=== PATIENT | male | born 1945 | race Caucasian/White ===

== ENCOUNTER 2017-08-29 18:48 | Emergency (ER) | payer MEDICARE, SELFPAY ==
[2017-08-29 18:50] VITALS: BP 188/82; PULSE 69; RESP 14; TEMP 36.6; O2SAT 99; BMI 30.8
--- NOTE | 2017-08-29 18:56 | EKG12_ITS ---
Test Reason : CP Blood Pressure : / mmHG Vent. Rate : 066 BPM Atrial Rate : 066 BPM P-R Int : 178 ms QRS Dur : 142 ms QT Int : 434 ms P-R-T Axes : 041 143 046 degrees QTc Int : 454 ms Normal sinus rhythm Right bundle branch block Abnormal ECG Confirmed by JAELYN ATKINS ([id number]), fashion editor GRAZYAN COELHO ([id number] on 09/03/2017 1:51:26 PM Referred By: NATASHA Confirmed By:JAELYN ATKINS
--- NOTE | 2017-08-29 18:56 | RAD_ITS ---
STUDY: X-RAY CHEST REASON FOR EXAM: Male, 71 years old. Fluttering TECHNIQUE: Single AP portable view of the chest. COMPARISON: 05/02/2017. FINDINGS: The lungs are clear and expanded. There is no demonstrated pleural abnormality. Normal size heart. Patient status post sternotomy. Normal mediastinum and power. Normal visualized pulmonary arteries. Normal visualized aortic arch and descending thoracic aorta. Normal visualized thoracic spine. Normal visualized ribs, clavicles, and shoulders. There is no demonstrated abnormality of the visualized soft tissue structures of the upper abdomen. RAD/Chest 1 View (Portable) IMPRESSION: No acute cardiopulmonary disease. Electronically Signed: Sukhi Samayoa DO at 19:23 EDT , Service support ,
[2017-08-29 18:58] VITALS: O2SAT 98
[2017-08-29 19:11] LABS: Absolute Lymphocyte Count 1.62 X10^3/ul (0.83-4.51); Absolute Neutrophil Count 2.9 X10^3/uL (2.0-7.7); Basophil# 0.02 X10^3/uL; Basophil% 0.4 % (0-1); Eosinophil# 0.15 X10^3/uL; Eosinophils% 2.9 % (0-5); Hematocrit 41.8 % (40-54); Hemoglobin 13.9 g/dl (13.0-16.5); Lymphocyte # 1.62 X10^3/ul (4.0); Lymphocyte % 31.8 % (19-41); Mean Corp Hgb Conc 33.3 g/gl (32-36); Mean Corpuscular Volume 90.3 fL (80-94); Mean Platelet Vol. 9.5 fl (6.2-12.0); Monocyte# 0.37 X10^3/uL; Monocyte% 7.3 % (0-10); Neutrophil # 2.92 X10^3/uL (2.7-7.7); Neutrophil % 57.4 % (47-70); POSITIVE COUNT NO; POSITIVE DIFFERENTIAL NO; POSITIVE MORPHOLOGY NO; Platelet Count 170 K/mm3 (150-450); RBC Distribution Width CV 13.4 % (11.6-14.6); RBC Distribution Width SD 43.6 fl (35.1-43.9); Red Blood Count 4.63 M/mm3 (4.6-6.2); White Blood Count 5.1 K/mm3 (4.4-11.0)
[2017-08-29 19:25] LABS: Anion Gap 6 (5-15); BUN 14 mg/dL (7-18); BUN/Creat Ratio 12.2 RATIO (10-20); Chloride 103 mmol/L (98-107); Creatinine, Serum 1.15 mg/dL (0.70-1.30); EST Glomerular Filtration Rate 66 mL/min (>60); Est Glom Filt Rate - Afr Amer 80 mL/min (>60); Estimated Creatinine Clearance 62.79 ml/min; Glucose 138 mg/dL (74-106); Sodium Level 139 mmol/L (136-145)
--- NOTE | 2017-08-29 20:43 | ED.VISSUMM ---
- ER Visit Summary Date of Service: 08/29/17 Chief Complaint: Chest vibration History of Present Illness: The patient is a 71 M presenting for evaluation secondary to an abnormal chest sensation. Patient states that since 8:00 this morning he has felt as if his chest was vibrating. He describes it as somewhat of a fluttering feeling. Patient states that he has had some mild diarrhea recently and some generalized malaise. Denies any chest pain shortness of breath nausea or vomiting or fevers associated with this. Patient does have an underlying history diabetes hypertension high cholesterol and a pig valve. He states that he does not have any history of coronary disease. Review of systems otherwise negative. Physical Examination: Vital signs within normal limits. Well-nourished elderly male no acute distress. Moist mucous membranes. No JVD. Heart regular rate and rhythm 2 out of 6 systolic murmur. Lungs clear. Abdomen soft nontender. Trace peripheral edema 2+ peripheral pulses bilaterally symmetric mental physical unremarkable. Test Results: EKG shows a right bundle branch block consistent with prior EKG with isoelectric ST segments and actually improved T waves in a rate of 66. CBC chemistry troponin unremarkable, TSH mildly elevated at 5.5, chest x-ray shows chronic changes per radiology. Emergency Department Course and Treatment: Patient presented with an abnormal feeling in his chest. Workup was found to be negative as noted above. Patient's ROMELIA risk score is actually only 2 out of 7, and his symptoms seem extremely atypical for something cardiac. He had no signs of arrhythmia on telemetry monitoring. This point I do not believe patient requires admission. Patient was reassured by this, will follow up with his primary care physician Disposition: Discharge Impression: 1. Palpitations This note was generated with [employer] dictation software. It may contain incorrect words, spelling, and punctuation that were not noted in review of the chart prior to signing ED Disposition - Plan for ED Patient: Disposition: Home or Assisted Living Chief Complaint: Chest Pain Diagnosis: Palpitations Instructions: ED Palpitations Referrals: [facility] Doctor,Out of [Primary Care Provider] -
[2017-08-29 20:50] VITALS: BP 145/79; PULSE 61; RESP 17; O2SAT 95
--- NOTE | 2017-08-29 20:50 | ED.RN ---
IV DC'ED, CATHETER INTACT, SMALL GAUZE DRESSING PLACED. DISCHARGE INSTRUCTIONS GIVEN TO AND REVIEWED WITH PATIENT, PATIENT DENIES QUESTIONS OR CONCERNS AND VOICES UNDERSTANDING OF DISCHARGE INSTRUCTIONS. PT AMBULATES OUT OF ROOM WITHOUT DIFFICULTY.
== END 2017-08-29 20:51 | disposition home or self-care (01) ==
PROVIDERS: Emergency Provider Emergency Medicine
DX: R00.2 Palpitations (principal); E11.9 Type 2 diabetes mellitus without complications; I10 Essential (primary) hypertension; E78.00 Pure hypercholesterolemia, unspecified; Z95.4 Presence of other heart-valve replacement; Z79.84 Long term (current) use of oral hypoglycemic drugs; Z79.899 Other long term (current) drug therapy
CPT/HCPCS: 71045; 80048; 84443; 84484; 85025; 93005; 99284; A4216

== ENCOUNTER 2018-06-08 08:48 | Emergency (ER) | payer MEDICARE, SELFPAY ==
[2018-06-08 08:49] VITALS: BP 204/101; PULSE 53; RESP 16; TEMP 36.4; O2SAT 98; BMI 30.5
--- NOTE | 2018-06-08 09:15 | RAD_ITS ---
STUDY: X-RAY CHEST REASON FOR EXAM: Male, 72 years old. Chest pain for one week TECHNIQUE: PA and lateral views of the chest. COMPARISON: 08/29/2017 FINDINGS: The lungs are clear and expanded. There is no demonstrated pleural abnormality. Normal size heart. Sternal wires and prosthetic aortic valve demonstrated, similar. EKG leads project over the chest. Normal mediastinum and power. Normal visualized pulmonary arteries. Normal visualized aortic arch and descending thoracic aorta. Normal visualized thoracic spine. Normal visualized ribs, clavicles, and shoulders. There is no demonstrated abnormality of the visualized soft tissue structures of the upper abdomen. RAD/Chest PA and Lateral IMPRESSION: 1. No acute cardiopulmonary process. 2. Aortic valve replacement. Electronically Signed: Gabriele Huang MD at 9:44 EST , Service support ,
[2018-06-08 09:29] LABS: Absolute Lymphocyte Count 1.18 X10^3/ul (0.83-4.51); Absolute Neutrophil Count 2.9 X10^3/uL (2.0-7.7); Basophil# 0.02 X10^3/uL; Basophil% 0.4 % (0-1); Eosinophil# 0.09 X10^3/uL; Eosinophils% 1.9 % (0-5); Hematocrit 41.9 % (40-54); Hemoglobin 14.2 g/dl (13.0-16.5); Lymphocyte # 1.18 X10^3/ul (4.0); Lymphocyte % 25.3 % (19-41); Mean Corp Hgb Conc 33.9 g/gl (32-36); Mean Corpuscular Hgb 30.3 pg (27.0-32.0); Mean Corpuscular Volume 89.3 fL (80-94); Mean Platelet Vol. 9.3 fl (6.2-12.0); Monocyte# 0.44 X10^3/uL; Monocyte% 9.4 % (0-10); Neutrophil # 2.92 X10^3/uL (2.7-7.7); Neutrophil % 62.8 % (47-70); POSITIVE COUNT NO; POSITIVE DIFFERENTIAL NO; POSITIVE MORPHOLOGY NO; Platelet Count 142 K/mm3 (150-450); RBC Distribution Width CV 12.8 % (11.6-14.6); RBC Distribution Width SD 41.5 fl (35.1-43.9); Red Blood Count 4.69 M/mm3 (4.6-6.2); White Blood Count 4.7 K/mm3 (4.4-11.0)
[2018-06-08 09:37] LABS: D-Dimer Quantitative (DVT/PE) < 0.27 FEU/ug/m (0.27-0.49)
[2018-06-08] MEDS: 0.9% Normal Saline 1,000 ML 150 ML IV (09:42)
[2018-06-08 09:43] LABS: Anion Gap 9 (5-15); BUN 13 mg/dL (7-18); BUN/Creat Ratio 11.5 RATIO (10-20); Chloride 102 mmol/L (98-107); Creatinine, Serum 1.13 mg/dL (0.70-1.30); EST Glomerular Filtration Rate 67 mL/min (>60); Est Glom Filt Rate - Afr Amer 81 mL/min (>60); Estimated Creatinine Clearance 62.95 ml/min; Glucose 173 mg/dL (74-106); Potassium 4.7 mmol/L (3.5-5.1); Sodium Level 140 mmol/L (136-145)
--- NOTE | 2018-06-08 09:57 | ED.DCSUM_ITS ---
- ER Visit Summary Date of Service: 06/08/18 Chief Complaint: [Chest pain] History of Present Illness: The patient is a 72 M [presents to the emergency department complaint of chest pain that started yesterday evening suddenly. Patient states that he was taking his shoes off when he noticed the discomfort in his left chest that was sharp. Patient states the pain lasted a few minutes and then resolved. Patient states with certain position movements the pain comes back. He denies any real shortness of breath or diaphoresis. Patient had some mild nausea but no vomiting. He denies any radiation of the pain. Patient states that it reminds him of pain he had with movement after his open heart surgery for an aortic valve replacement. Patient denies any cough or hemoptysis. He denies any fever.] Patient not currently having any pain. Physical Examination: [HEENT-PERRLA, EOMI. Cranial nerves II through XII grossly intact. TMs clear. Mucous membranes moist. No adenopathy. Cardiovascular-regular rate and rhythm without murmur or ectopy Lungs-clear to auscultation, chest wall stable without crepitus or subcu emphysema. No tenderness on palpation of the chest wall. Abdomen-normoactive bowel sounds, soft, nontender, no rebound or rigidity, no peritoneal signs. Extremities-intact ?4, normal range of motion, normal pulses, atraumatic] Test Results: [EKG obtained on arrival shows sinus bradycardia with a ventricular rate of 51 bpm with occasional PACs. CBC with differential obtained showed a white count of 4.7, hemoglobin 14, hematocrit 42, platelets 142. Chemistries unremarkable. Troponin less than 0.015. D-dimer was less than 0. 27. Chest x-ray obtained showed nothing acute.] Emergency Department Course and Treatment: [] Treatment Plan: [Patient advised to follow-up with primary care physician within next 5-7 days. Patient to return if persistent or worsening pain, fever, increasing shortness of breath, or condition should worsen anyway.] Disposition: [Discharged home in stable condition.] Impression: [Chest wall strain] This note was generated with [employer] dictation software. It may contain incorrect words, spelling, and punctuation that were not noted in review of the chart prior to signing ED Disposition - Plan for ED Patient: Chief Complaint: Chest Other Referrals: Daljit Cook MD [Primary Care Provider] -
--- NOTE | 2018-06-08 09:58 | ED.DEP ---
ED Disposition - Plan for ED Patient: Chief Complaint: Chest Other Instructions: ED Chest Pain Atypical Unkn Cause, ED Strain Chest Wall Referrals: Daljit Cook MD [Primary Care Provider] - 5-7 Days
[2018-06-08 10:09] VITALS: BP 142/78; PULSE 66; RESP 15; O2SAT 97
== END 2018-06-08 10:09 | disposition home or self-care (01) ==
PROVIDERS: Emergency Provider Emergency Medicine; Family Provider Family Medicine; PCP Family Medicine
DX: S29.011A Strain of muscle and tendon of front wall of thorax, initial encounter (principal); R07.9 Chest pain, unspecified; I10 Essential (primary) hypertension; Z95.2 Presence of prosthetic heart valve; X58.XXXA Exposure to other specified factors, initial encounter; Y93.89 Activity, other specified; Y92.89 Other specified places as the place of occurrence of the external cause; Y99.8 Other external cause status
CPT/HCPCS: 71046; 80048; 84484; 85025; 85379; 93005; 99284; J7030; A4216

== ENCOUNTER 2022-01-28 12:04 | Emergency (ER) | payer MEDICARE, SELFPAY ==
[2022-01-28] VITALS (7 sets, daily range): BP systolic 119–163; BP diastolic 57–70; PULSE 78–93; RESP 18–24; TEMP 37.5–39.2; O2SAT 92–95; BMI 30.4
--- NOTE | 2022-01-28 12:14 | EKG12_ITS ---
Test Reason : Blood Pressure : / mmHG Vent. Rate : 094 BPM Atrial Rate : 094 BPM P-R Int : 190 ms QRS Dur : 142 ms QT Int : 390 ms P-R-T Axes : 037 221 041 degrees QTc Int : 487 ms Normal sinus rhythm Right bundle branch block Abnormal ECG Confirmed by PRATEEK HASTINGS, MANUEL ([id number]), web editor KINGA GOODE ([id number]) on 01/30/2022 10:00:17 AM Referred By: Júnior Confirmed By:MANUEL CHANDRA MD
--- NOTE | 2022-01-28 12:14 | RAD_ITS ---
HISTORY: fever. TECHNIQUE: XR Chest 1 View. COMPARISON: 06/08/2018. FINDINGS: CARDIOMEDIASTINAL BORDERS: Cardiac silhouette within normal limits in size. Mediastinal contour unremarkable with midline sternotomy and aortic valve prosthesis again noted. LUNGS: Mild left basilar opacity. PLEURA: No pleural effusion or pneumothorax seen. OSSEOUS STRUCTURES: Degenerative change. RAD/Chest 1 View (Portable) IMPRESSION: Mild left basilar atelectasis or inflammation. Electronically Signed: Misty Muniz MD at 12:57 EDT ,
--- NOTE | 2022-01-28 12:24 | EX.ED.DYSGE1 ---
HPI History of Present Illness Chief Complaint: Mental Status Change Narrative Narrative: 76-year-old male with PMH of HTN, HLD, DM2 presents with 3 to 4-day history of cough, fever, and today he developed generalized weakness. He was sitting in the car while his was in the grocery store. He had to use the restroom and started walking in but felt weak and fell. He denies head injury or LOC. Bystanders helped him up and called EMS. He did have an episode of urinary incontinence after the fall. He took last dose of Tylenol at 6 AM this morning. No sick contacts. He is vaccinated for COVID. [facility] Medications atorvastatin 20 mg tablet 60 mg PO QHS 03/21/16 [History Last Taken Unknown] metformin (bulk) 100 % powder 500 tab PO QHS 03/21/16 [History Last Taken Unknown] metformin 500 mg 24 hr tablet,extended release 1,000 mg PO DAILY 03/21/16 [History Last Taken Unknown] omeprazole 10 mg capsule,delayed release 10 mg PO DAILY 03/21/16 [History Last Taken Unknown] losartan 100 mg tablet 100 mg PO DAILY 05/01/17 [History Last Taken 05/02/17 07:00] Allergy/AdvReac Type Severity Reaction Status Date / Time No Known Allergies Allergy Verified 08/29/17 18:49 Social History Smoking Status: Former smoker ROS ROS ED ROS Narrative Constitutional: Positive for fever, malaise. Eyes: Negative for visual change. ENT: Negative for sore throat, ear pain, rhinorrhea. CVS: Negative for palpitations, chest pain, syncope. Respiratory: Positive for cough. Negative for shortness of breath, orthopnea. GI: Negative for abdominal pain, nausea, vomiting, diarrhea, constipation, melena, hematochezia. : Positive for frequency. Negative for dysuria, hematuria. Neuro: Negative for headache, motor/sensory dysfunction. Skin: Negative for rash, abscess, or wound. Musc: Negative for joint pain, swelling, trauma. Heme: Negative for easy bruising, bleeding, lymphadenopathy. EXAM Physical Exam Narrative Exam Narrative: CONST: Patient sitting in no acute distress. EYES: Normal inspection. ENT: Normal inspection, moist mucous membranes. NECK: Normal inspection. RESP: No respiratory distress, bibasilar crackles that lessened after coughing. CVS: Regular rate and rhythm, no murmur, no gallop. ABD: Soft and nontender, no guarding or rebound. SKIN: Color normal, no rash, warm, dry, intact. EXTREMITIES: Normal appearance, no pedal edema. NEURO: Oriented x4. PSYCH: Normal affect. Const Vital Signs: 01/28/22 12:08 01/28/22 12:13 01/28/22 12:17 Temperature 102.5 F H 102.5 F H Temperature Source Oral Oral Pulse Rate 93 89 Respiratory Rate 20 H 24 H Blood Pressure 163/70 H 163/70 H Blood Pressure Mean 101 101 Pulse Ox 92 95 92 Oxygen Delivery Method Room Air Room Air Room Air 01/28/22 13:00 01/28/22 14:00 01/28/22 14:12 Temperature 99.5 F H Temperature Source Oral Pulse Rate 93 84 Respiratory Rate 19 H 21 H Blood Pressure 141/59 H 124/61 H Blood Pressure Mean 86 82 Pulse Ox 94 94 Oxygen Delivery Method Room Air Room Air 01/28/22 14:12 Temperature 99.5 F H Temperature Source Oral Pulse Rate 81 Respiratory Rate 24 H Blood Pressure 124/61 H Blood Pressure Mean 82 Pulse Ox 95 Oxygen Delivery Method Room Air MDM MDM MDM Narrative Medical decision making narrative: Patient presents with fever, cough, generalized weakness and a fall today. He appears ill but nontoxic. He was febrile at 102.5, RR 20, 92% on room air. Clinically he had slightly dry mucous membranes. Faint crackles in both bases but this resolved after coughing. Exam otherwise unremarkable. COVID-19 test is positive. CBC overall unremarkable, sodium 131, mild elevation in creatinine at 1.32. Lactate 2.3. I think this is all secondary to dehydration. CXR shows mild left basilar atelectasis versus inflammation. Patient was given IV fluids and Tylenol and is feeling improved. Ambulatory pulse ox is 92%. Patient did feel somewhat weak while walking however he prefers to go home and rest there. I do think this is appropriate as his fever has improved, no hypoxia, labs only consistent with some dehydration. He was given IV fluids. There is no different intervention we would give here. Patient will return if symptoms worsen and was discharged in stable condition. 1. COVID-19 pneumonia 2. Generalized weakness 3. Fall 4. Dehydration Lab Data Attestation: I reviewed the patient's lab results. Labs: Laboratory Results - last 24 hr 01/28/22 01/28/22 01/28/22 12:30 12:30 12:30 WBC 7.0 RBC 4.66 Hgb 14.2 Hct 42.3 MCV 90.8 MCH 30.5 MCHC 33.6 RDW Std Deviation 43.2 RDW Coeff of Tammy 13.1 Plt Count 118 L MPV 9.9 Immature Gran % (Auto) 0.300 Neut % (Auto) 80.0 H Lymph % (Auto) 7.5 L [place] % (Auto) 12.1 H Eos % (Auto) 0.0 Baso % (Auto) 0.1 Absolute Neuts (auto) 5.6 Absolute Lymphs (auto) 0.53 L Nucleated RBC % 0 Platelet Estimate ADEQUATE RBC Morphology NORM C+C PT 13.5 INR 1.1 APTT 26.0 Sodium 131 L Potassium 3.9 Chloride 96 L Carbon Dioxide 26.0 Anion Gap 9 BUN 15 Creatinine 1.32 H Estim Creat Clear Calc 50.62 Est GFR (MDRD) Af Amer 67 Est GFR (MDRD) Non-Af 56 L BUN/Creatinine Ratio 11.4 Glucose 187 H Lactic Acid Calcium 8.8 Total Bilirubin 0.80 AST 44 H ALT 46 Alkaline Phosphatase 54 Troponin I High Sens 22 Total Protein 7.4 Albumin 3.8 Globulin 3.6 Albumin/Globulin Ratio 1.1 Urine Color Urine Clarity Urine pH Ur Specific [place] Urine Protein Urine Glucose (UA) Urine Ketones Urine Occult Blood Urine Nitrite Urine Bilirubin Urine Urobilinogen Ur Leukocyte Esterase Urine RBC Urine WBC Ur Squamous Epith Cells Urine Bacteria Urine Mucus 01/28/22 01/28/22 12:30 12:35 WBC RBC Hgb Hct MCV MCH MCHC RDW Std Deviation RDW Coeff of Tammy Plt Count MPV Immature Gran % (Auto) Neut % (Auto) Lymph % (Auto) [place] % (Auto) Eos % (Auto) Baso % (Auto) Absolute Neuts (auto) Absolute Lymphs (auto) Nucleated RBC % Platelet Estimate RBC Morphology PT INR APTT Sodium Potassium Chloride Carbon Dioxide Anion Gap BUN Creatinine Estim Creat Clear Calc Est GFR (MDRD) Af Amer Est GFR (MDRD) Non-Af BUN/Creatinine Ratio Glucose Lactic Acid 2.3 H* Calcium Total Bilirubin AST ALT Alkaline Phosphatase Troponin I High Sens Total Protein Albumin Globulin Albumin/Globulin Ratio Urine Color Yellow Urine Clarity Clear Urine pH 6.0 Ur Specific [place] 1.025 Urine Protein 100 H Urine Glucose (UA) Normal Urine Ketones 15 H Urine Occult Blood 25 H Urine Nitrite Negative Urine Bilirubin Negative Urine Urobilinogen Normal Ur Leukocyte Esterase Negative Urine RBC 0 SEEN Urine WBC 5-10 SEEN Ur Squamous Epith Cells 0 SEEN Urine Bacteria 0 SEEN Urine Mucus 0 SEEN Radiography Chest X-Ray - ED: 1 View, Read by ED Physician and Read by Radiologist Diagnostic Testing: Clinical Impression(s) from Imaging Studies Chest X-Ray 01/28/22 12:14 IMPRESSION: Mild left basilar atelectasis or inflammation. Electronically Signed: Misty Muniz MD at 12:57 EDT , ED attending interpretation shows normal heart size and, possible left lower lobe opacity. EKG Initial EKG: Attestation: I personally reviewed and interpreted this EKG as follows: Interpretation: Sinus Rhythm, No Acute Injury Pattern and RBBB Prior EKG tracings: not available for review Discharge Plan Triage Chief Complaint: Mental Status Change ED Midlevel Provider: Hina Gonzalez ED Provider: Ihsan Callejas Dx/Rx/DC Orders Clinical Impression: COVID-19, Weakness Instructions: Caring for Someone Who Has COVID-19 Prescriptions: No Action atorvastatin 20 MG tablet 60 mg PO QHS omeprazole 10 MG capsule 10 mg PO DAILY metformin 500 MG tablet,ER [place].retention 24 hr 1,000 mg PO DAILY metformin (bulk) 100 GM powder 500 tab PO QHS losartan 100 MG tablet 100 mg PO DAILY Primary Care Provider: Daljit Cook Referrals: Daljit Cook MD [Primary Care Provider] - Activity Restrictions/Additional Instructions: Rest and drink plenty of fluids. Take Tylenol as needed every 6 hours for fever. If symptoms worsen or you have increased shortness of breath return to the ER. Disposition Disposition: Home, Self Care
[2022-01-28] MEDS: 0.9% Normal Saline 1,000 ML 999 ML IV (12:32)
[2022-01-28] MEDS: Acetaminophen 500 MG Tablet 1000 MG PO (12:32)
[2022-01-28 12:46] LABS: Bacteria 0 SEEN /hpf (None Seen); Mucous, Urine 0 SEEN /hpf (<or=2+); Red Blood Cells-Urine 0 SEEN /hpf (0-5); Squamous Epithelial Cells - UA 0 SEEN /hpf (0-5)
[2022-01-28 12:49] LABS: Absolute Lymphocyte Count 0.53 X10^3/uL (0.83-4.51); Absolute Neutrophil Count 5.6 X10^3/uL (2.0-7.7); Basophil# 0.01 X10^3/uL; Basophil% 0.1 % (0-1); Hematocrit 42.3 % (40-54); Hemoglobin 14.2 g/dL (13.0-16.5); Lymphocyte # 0.53 X10^3/ul (0.83-4.51); Lymphocyte % 7.5 % (19-41); Mean Corp Hgb Conc 33.6 g/dL (32-36); Mean Corpuscular Hgb 30.5 pg (27.0-32.0); Mean Corpuscular Volume 90.8 fL (80-94); Mean Platelet Vol. 9.9 fl (6.2-12.0); Monocyte# 0.85 X10^3/uL; Monocyte% 12.1 % (0-10); NRBC Flagged by Analyzer 0 % (0-5); Neutrophil # 5.62 X10^3/uL (2.7-7.7); POSITIVE COUNT YES; POSITIVE DIFFERENTIAL YES; Platelet Count 118 K/mm3 (150-450); RBC Distribution Width CV 13.1 % (11.6-14.6); RBC Distribution Width SD 43.2 fl (35.1-43.9); Red Blood Count 4.66 M/mm3 (4.6-6.2)
[2022-01-28 12:49] LABS: Color, Urine Yellow (Yellow); Glucose, Dipstick Normal (Normal); Ketone-Dipstick 15 mg/dl (Negative); Leukocyte Esterase-Dipstick Negative /ul (Negative); Nitrite-Dipstick Negative (Negative); Occult Blood-Urine 25 /ul (Negative); Protein-Dipstick 100 mg/dl (Negative); Specific Gravity, Urine 1.025 (1.002-1.030); Urine Bilirubin Dipstick Negative (Negative); Urine Clarity Clear (Clear); Urine Urobilinogen Normal (Normal)
[2022-01-28 12:55] LABS: White Blood Cells 5-10 SEEN /hpf (0-5)
[2022-01-28 12:56] LABS: International Normalized Ratio 1.1; Prothrombin Time (Protime)PT. 13.5 SECONDS (11.7-14.9)
[2022-01-28 13:06] LABS: ALB/GLOB Ratio 1.1 RATIO (0.9-2.4); AST(SGOT) 44 U/L (15-37); Alanine Aminotransfer ALT/SGPT 46 U/L (16-61); Albumin, Serum 3.8 g/dL (3.2-5.0); Alkaline Phosphatase 54 U/L (45-117); Anion Gap 9 (5-15); BUN 15 mg/dL (7-18); BUN/Creat Ratio 11.4 RATIO (10-20); Calcium,Total 8.8 mg/dL (8.5-10.1); Chloride 96 mmol/L (98-107); Creatinine, Serum 1.32 mg/dL (0.70-1.30); EST Glomerular Filtration Rate 56 mL/min (>60); Est Glom Filt Rate - Afr Amer 67 mL/min (>60); Estimated Creatinine Clearance 50.62 ml/min; Globulin 3.6 g/dL (2.2-4.2); Glucose 187 mg/dL (74-106); Potassium 3.9 mmol/L (3.5-5.1); Protein, Total 7.4 g/dL (6.4-8.2); Sodium Level 131 mmol/L (136-145); Troponin-I HS 22 pg/mL (3.0-78.0)
[2022-01-28 13:10] LABS: Differential Indicated SCAN CRITERIA MET
[2022-01-28 13:11] LABS: Lactic Acid 2.3 mmol/L (0.4-1.9)
[2022-01-28 13:14] LABS: Platelet Estimate ADEQUATE (ADEQ); Red Cell Morphology NORM C+C NORMAL (NORM C&C)
[2022-01-28 16:43] LABS: Reflex Lactate? Y
== END 2022-01-28 15:19 | disposition home or self-care (01) ==
PROVIDERS: Emergency Provider Student in an Organized Health Care Education/Training Program; PCP Family Medicine; Visit Provider Student in an Organized Health Care Education/Training Program
DX: U07.1 COVID-19 (principal); E11.9 Type 2 diabetes mellitus without complications; E86.0 Dehydration; I10 Essential (primary) hypertension; J12.82 Pneumonia due to coronavirus disease 2019; E78.5 Hyperlipidemia, unspecified; R32 Unspecified urinary incontinence; R41.82 Altered mental status, unspecified; R53.1 Weakness; Z87.891 Personal history of nicotine dependence; Z79.899 Other long term (current) drug therapy; Z79.84 Long term (current) use of oral hypoglycemic drugs; W18.39XA Other fall on same level, initial encounter; Y92.512 Supermarket, store or market as the place of occurrence of the external cause; X58.XXXA Exposure to other specified factors, initial encounter
CPT/HCPCS: 36415; 71045; 80053; 81001; 83605; 84484; 85025; 85610; 85730; 87040; 87086; 87811; 93005; 96360; 96361; 99285; J7030; P9612; A4216

== ENCOUNTER 2022-02-27 12:09 | Emergency (ER) | payer MEDICARE, SELFPAY ==
[2022-02-27 12:09] VITALS: BP 143/103; PULSE 120; RESP 19; TEMP 36.2; O2SAT 96; BMI 31.1
[2022-02-27 12:12] VITALS: BP 143/103; PULSE 118; RESP 14; TEMP 36.2; O2SAT 96
--- NOTE | 2022-02-27 12:18 | EKG12_ITS ---
Test Reason : CP Blood Pressure : / mmHG Vent. Rate : 120 BPM Atrial Rate : 120 BPM P-R Int : 200 ms QRS Dur : 134 ms QT Int : 344 ms P-R-T Axes : 000 231 034 degrees QTc Int : 486 ms Sinus tachycardia with Premature ventricular complexes or Fusion complexes Right bundle branch block Abnormal ECG Confirmed by PRATEEK HASTINGS, MANUEL ([id number]), editorial manager KINGA GOODE ([id number]) on 03/01/2022 8:35:31 AM Referred By: ZACK Confirmed By:MANUEL CHANDRA MD
--- NOTE | 2022-02-27 12:19 | ED.VIS.CHEST ---
HPI History of Present Illness Chief Complaint: Chest Pain Narrative Narrative: Patient presents with 3-day history of chest discomfort, it is constant across his chest. There is no pleuritic component. No back pain or tearing sensation. No lower extremity edema or calf pain. He did have COVID a month ago he seems to have improved, he was started on amoxicillin about a week ago and thought maybe he was having a reaction to it however he has no nausea vomiting rash or shortness of breath. PFSH PFS Medical History COVID Diabetes High cholesterol Hypertension Home Medications atorvastatin 20 mg tablet 60 mg PO QHS 03/21/16 [History Last Taken Unknown] metformin (bulk) 100 % powder 500 tab PO QHS 03/21/16 [History Last Taken Unknown] metformin 500 mg 24 hr tablet,extended release 1,000 mg PO DAILY 03/21/16 [History Last Taken Unknown] omeprazole 10 mg capsule,delayed release 10 mg PO DAILY 03/21/16 [History Last Taken Unknown] losartan 100 mg tablet 100 mg PO DAILY 05/01/17 [History Last Taken 05/02/17 07:00] Allergy/AdvReac Type Severity Reaction Status Date / Time No Known Allergies Allergy Verified 08/29/17 18:49 Surgical History Heart valve replaced Social History Smoking Status: Former smoker ROS ROS ED ROS Narrative Past medical history: Reviewed, includes hypertension, type 2 diabetes, hyperlipidemia, and recent COVID-19 Medications: Reviewed Social history: Noncontributory Review of systems: All systems negative except as indicated General: No fever Eyes: No visual changes ENT: No upper airway congestion, normal voice Neck: No neck pain Cardiovascular: Chest pain with palpitations. Respiratory: No shortness of breath or cough Gastrointestinal: No abdominal pain, nausea vomiting or diarrhea Genitourinary: No dysuria Musculoskeletal: Denies myalgias no difficulty with ambulation Skin: No rash Neurological: No memory loss, confusion or any focal weakness Psych: No recent behavioral changes Hematologic: No easy bleeding or easy bruising EXAM Physical Exam Narrative Exam Narrative: Physical exam General: Well nourished, Well developed, No Acute Distress Head: Normocephalic, Atraumatic Eyes: Conjunctiva not pale ENT: Moist mucous membranes Neck: Supple, Nontender, No lymphadenopathy Cardiovascular: Regular tachycardia without any murmurs. Chest wall: Midline scar from valve replacement surgery which is old. Respiratory: No distress, CTA bilaterally Abdomen: Soft, Nontender, Nondistended Back: Nontender, Normal Inspection. Negative for: CVA tenderness Extremities: Nontender, No edema Skin: Normal color, No rash Neurological: Alert, Normal Strength, Normal Sensation Psychological: Normal affect Const Vital Signs: 02/27/22 12:09 02/27/22 12:12 02/27/22 12:18 Temperature 97.1 F L 97.1 F L Temperature Source Temporal Temporal Pulse Rate 120 H 118 H Respiratory Rate 19 H 14 Respiratory Effort Blood Pressure 143/103 H 143/103 H Blood Pressure Mean 116 116 Pulse Ox 96 96 Oxygen Delivery Method Room Air Room Air Room Air 02/27/22 13:07 02/27/22 13:09 Temperature Temperature Source Pulse Rate 73 Respiratory Rate 16 Respiratory Effort Normal Non-Labored Blood Pressure 116/104 H Blood Pressure Mean 108 Pulse Ox 95 Oxygen Delivery Method Room Air MDM MDM MDM Narrative Medical decision making narrative: Patient's work-up is unremarkable. It is been ongoing for 3 days. I believe he stable for discharge with PCP follow-up. Lab Data Labs: Laboratory Results - last 24 hr 02/27/22 02/27/22 12:20 12:20 WBC 5.4 RBC 4.27 L Hgb 12.8 L Hct 39.2 L MCV 91.8 MCH 30.0 MCHC 32.7 RDW Std Deviation 45.8 H RDW Coeff of Tammy 13.6 Plt Count 166 MPV 9.6 Immature Gran % (Auto) 0.700 Neut % (Auto) 62.7 Lymph % (Auto) 23.6 [place] % (Auto) 10.4 H Eos % (Auto) 1.9 Baso % (Auto) 0.7 Absolute Neuts (auto) 3.4 Absolute Lymphs (auto) 1.27 Nucleated RBC % 0 Sodium 137 Potassium 4.3 Chloride 105 Carbon Dioxide 25.0 Anion Gap 7 BUN 16 Creatinine 1.08 Estim Creat Clear Calc 61.87 Est GFR (MDRD) Af Amer 85 Est GFR (MDRD) Non-Af 70 BUN/Creatinine Ratio 14.8 Glucose 166 H Calcium 9.4 Total Bilirubin 0.70 AST 50 H ALT 83 H Alkaline Phosphatase 69 Troponin I High Sens 10 Total Protein 7.3 Albumin 3.7 Globulin 3.6 Albumin/Globulin Ratio 1.0 Radiography Diagnostic Testing: Clinical Impression(s) from Imaging Studies Chest CTA 02/27/22 13:22 IMPRESSION: No evidence of pulmonary embolism. Mild degree of increased markings at the left lung base with a small left pleural effusion. This may represent early infiltrate. Electronically Signed: Yaron Carbjaal MD at 14:23 EDT , EKG Initial EKG: Comments: Sinus tachycardia with a rate of 120. Right bundle branch pattern. Normal SD interval. No other ischemic changes are seen. PVC is present. Interpreted by emergency Dr. Discharge Plan Triage Chief Complaint: Chest Pain ED Provider: Bryan Mcgee Dx/Rx/DC Orders Clinical Impression: Chest pain, COVID Instructions: ED Chest Pain, Uncertain Cause Prescriptions: No Action atorvastatin 20 MG tablet 60 mg PO QHS omeprazole 10 MG capsule 10 mg PO DAILY metformin 500 MG tablet,ER [place].retention 24 hr 1,000 mg PO DAILY metformin (bulk) 100 GM powder 500 tab PO QHS losartan 100 MG tablet 100 mg PO DAILY Primary Care Provider: Daljit Cook Referrals: Daljit Cook MD [Primary Care Provider] - 2 Days Disposition Disposition: Home, Self Care
[2022-02-27 12:33] LABS: Absolute Lymphocyte Count 1.27 X10^3/uL (0.83-4.51); Absolute Neutrophil Count 3.4 X10^3/uL (2.0-7.7); Basophil# 0.04 X10^3/uL; Basophil% 0.7 % (0-1); Eosinophils% 1.9 % (0-5); Hematocrit 39.2 % (40-54); Hemoglobin 12.8 g/dL (13.0-16.5); Lymphocyte # 1.27 X10^3/ul (0.83-4.51); Lymphocyte % 23.6 % (19-41); Mean Corp Hgb Conc 32.7 g/dL (32-36); Mean Corpuscular Volume 91.8 fL (80-94); Mean Platelet Vol. 9.6 fl (6.2-12.0); Monocyte# 0.56 X10^3/uL; Monocyte% 10.4 % (0-10); NRBC Flagged by Analyzer 0 % (0-5); Neutrophil # 3.38 X10^3/uL (2.7-7.7); Neutrophil % 62.7 % (47-70); Platelet Count 166 K/mm3 (150-450); RBC Distribution Width CV 13.6 % (11.6-14.6); RBC Distribution Width SD 45.8 fl (35.1-43.9); Red Blood Count 4.27 M/mm3 (4.6-6.2); White Blood Count 5.4 K/mm3 (4.4-11.0)
[2022-02-27 12:53] LABS: AST(SGOT) 50 U/L (15-37); Alanine Aminotransfer ALT/SGPT 83 U/L (16-61); Albumin, Serum 3.7 g/dL (3.2-5.0); Alkaline Phosphatase 69 U/L (45-117); Anion Gap 7 (5-15); BUN 16 mg/dL (7-18); BUN/Creat Ratio 14.8 RATIO (10-20); Calcium,Total 9.4 mg/dL (8.5-10.1); Chloride 105 mmol/L (98-107); Creatinine, Serum 1.08 mg/dL (0.70-1.30); EST Glomerular Filtration Rate 70 mL/min (>60); Est Glom Filt Rate - Afr Amer 85 mL/min (>60); Estimated Creatinine Clearance 61.87 ml/min; Globulin 3.6 g/dL (2.2-4.2); Glucose 166 mg/dL (74-106); Potassium 4.3 mmol/L (3.5-5.1); Protein, Total 7.3 g/dL (6.4-8.2); Sodium Level 137 mmol/L (136-145); Troponin-I HS (w/2H Reflex) 10 pg/mL (3.0-78.0)
[2022-02-27] MEDS: Aspirin 81 MG TAB.CHEW 324 MG PO (13:05)
[2022-02-27 13:09] VITALS: BP 116/104; PULSE 73; RESP 16; O2SAT 95
--- NOTE | 2022-02-27 13:22 | CT_ITS ---
STUDY: CTA CHEST REASON FOR EXAM: Male, 76 years old. Several day history of chest pain. Hypertension. RADIATION DOSAGE (If Supplied By Facility): CTDIvol = ( 15.61 ) mGy, DLP = ( 567.60 ) mGycm TECHNIQUE: The examination was performed with the intravenous administration of IV 100mL Isovue-370. Post-processing of the angiographic images was performed, with multiplanar reformation and 3D reconstruction. Individualized dose optimization techniques were used for this CT. COMPARISON: Comparison is made with prior chest radiograph dated 01/28/2022. FINDINGS: Benign appearing bilateral axillary lymph nodes. Normal enhancement of the main pulmonary artery and right and left pulmonary arteries. Normal enhancement of the bilateral peripheral pulmonary arteries. There is no demonstrated pulmonary embolism. There is atherosclerotic calcification of the aortic arch with tortuosity. There is no demonstrated aortic dissection. Sternal cerclage wires and vascular clips are present from a prior sternotomy and coronary artery bypass graft procedure (CABG). Prior aortic valve replacement. Normal mediastinum. Normal hilar regions. Normal visualized trachea and bronchi. The lungs are well expanded. Mild increased linear markings at the lung bases slightly more prominent at the left lung base suggestive of left basilar atelectasis. Minimal left pleural thickening. Normal chest wall structures. There are degenerative changes of thoracic spine. Small hiatal hernia. CT/CTA Chest W/WO Contrast IMPRESSION: No evidence of pulmonary embolism. Mild degree of increased markings at the left lung base with a small left pleural effusion. This may represent early infiltrate. Electronically Signed: Yaron Carbajal MD at 14:23 EDT ,
[2022-02-27 14:00] VITALS: RESP 16
[2022-02-27 14:28] LABS: Reflex Troponin-HS? (from REC) Y
[2022-02-27 14:47] VITALS: RESP 16
[2022-02-27 14:58] LABS: Troponin-I HS 11 pg/mL (3.0-78.0)
== END 2022-02-27 14:53 | disposition home or self-care (01) ==
PROVIDERS: Emergency Provider Emergency Medicine; PCP Family Medicine; Visit Provider Emergency Medicine
DX: R07.9 Chest pain, unspecified (principal); E11.9 Type 2 diabetes mellitus without complications; E78.5 Hyperlipidemia, unspecified; I10 Essential (primary) hypertension; Z86.16 Personal history of COVID-19; Z87.891 Personal history of nicotine dependence; Z79.84 Long term (current) use of oral hypoglycemic drugs; Z79.899 Other long term (current) drug therapy
CPT/HCPCS: 71275; 80053; 84484; 85025; 93005; 99285; Q9967; A4216

== ENCOUNTER 2022-07-23 15:56 | Inpatient (IN) | payer MEDICARE, SELFPAY ==
[2022-07-23 15:57] VITALS: BP 158/106; PULSE 115; RESP 19; TEMP 36.3; O2SAT 99; BMI 30.6
--- NOTE | 2022-07-23 16:15 | EDS_ITS ---
HPI <SHIRLEY Fletcher - Last Filed: 07/23/22 18:26> History of Present Illness Chief Complaint: Dizziness Narrative Narrative: 76-year-old male with PMH of HTN, HLD, atrial flutter presents with an episode of lightheadedness. He was sitting on the couch and slightly leaned over to look at something on his 's phone when he started to feel lightheaded like he might pass out. He states he leaned back on the couch and rested. He felt mildly nauseous but no vomiting. There is no associated chest pain or shortness of breath. He did not feel a spinning sensation or have any visual changes. Symptoms resolved within 30 minutes or less and he feels back to normal. He states about 3 weeks ago at a routine physical they noticed he was in a flutter and started Eliquis. He is scheduled for cardioversion tomorrow in [place]. <Dr. Baldemar Sullivan MD - Last Filed: 07/23/22 23:20> History of Present Illness Detail of Chief Complaint: Dizziness PFSH <SHIRLEY Fletcher - Last Filed: 07/23/22 18:26> [facility] Medical History (Updated 07/23/22 @ 23:[address] Baldemar Sullivan MD) Atrial fibrillation COVID Diabetes High cholesterol Hypertension Home Medications atorvastatin 20 mg tablet 20 mg PO QHS 03/21/16 [History Last Taken Unknown] metformin (bulk) 100 % powder 500 tab PO QHS 03/21/16 [History Last Taken Unknown] metformin 500 mg 24 hr tablet,extended release 1,000 mg PO DAILY diabetes 03/21/16 [History Last Taken Unknown] omeprazole 10 mg capsule,delayed release 20 mg PO DAILY reflux 03/21/16 [History Last Taken Unknown] losartan 100 mg tablet 100 mg PO DAILY BP 05/01/17 [History Last Taken 05/02/17 07:00] apixaban 5 mg tablet (Eliquis) 5 mg PO BID anticoagulant 07/23/22 [History Last Taken Unknown] cholecalciferol (vitamin D3) 50 mcg (2,000 unit) tablet (Vitamin D3) 50 mcg PO DAILY 07/23/22 [History Last Taken Unknown] cyanocobalamin (vitamin B-12) 100 mcg tablet mcg 07/23/22 [History Last Taken Unknown] fluticasone propionate 50 mcg/actuation nasal spray,suspension intranasal 07/23/22 [History Last Taken Unknown] glipizide 5 mg tablet 5 mg PO DAILY 07/23/22 [History Last Taken Unknown] metoprolol tartrate 50 mg tablet 50 mg PO BID bp 07/23/22 [History Last Taken Unknown] multivitamin 1 tab PO DAILY health maintenance 07/23/22 [History Last Taken Unknown] omega-3 fatty acids 1,000 mg PO DAILY health maintenance 07/23/22 [History Last Taken Unknown] zinc 50 mg tablet 50 mg PO DAILY health maintenance 07/23/22 [History Last Taken Unknown] Allergy/AdvReac Type Severity Reaction Status Date / Time No Known Allergies Allergy Verified 08/29/17 18:49 Surgical History Heart valve replaced Social History Smoking Status: Former smoker ROS <SHIRLEY Fletcher - Last Filed: 07/23/22 18:26> ROS ED ROS Narrative Constitutional: Negative for fever, chills, malaise. ENT: Negative for sore throat, ear pain, rhinorrhea. CVS: Negative for palpitations, chest pain, syncope. Respiratory: Negative for shortness of breath, cough. GI: Positive for nausea. Negative for vomiting, abdominal pain. Neuro: Negative for headache, motor/sensory dysfunction. Skin: Negative for rash, abscess, or wound. Musc: Negative for joint pain, swelling, trauma. EXAM <SHIRLEY Fletcher - Last Filed: 07/23/22 18:26> Physical Exam Narrative Exam Narrative: CONST: Patient sitting in no acute distress. EYES: Normal inspection. PERRLA, EOMI, rightward horizontal nystagmus. HEAD: Slight left facial droop. a month. 5/5 upper and lower extremity strength, normal sensation to light touch, normal vbglah-[id number] and drmg-ev-[id number] bilaterally, no aphasia or dysarthria. ENT: No mastoid erythema swelling or tenderness. NECK: Normal inspection. RESP: No respiratory distress, CTAB. CVS: Irregularly irregular rhythm, no murmur, no gallop. SKIN: Color normal, no rash, warm, dry, intact. EXTREMITIES: Normal appearance, no pedal edema. NEURO: Oriented x4. PSYCH: Normal affect. Const Vital Signs: 07/23/22 15:57 07/23/22 16:25 07/23/22 18:31 Temperature 97.3 F L 98 F Temperature Source Temporal Temporal Pulse Rate 115 H 85 Respiratory Rate 19 H 17 Respiratory Effort Normal Non-Labored Respiratory Pattern Normal Blood Pressure 158/106 H 194/121 H Blood Pressure Mean 123 145 Pulse Ox 99 97 Oxygen Delivery Method Room Air Room Air <Dr. Baldemar Sullivan MD - Last Filed: 07/23/22 23:20> Physical Exam Const Vital Signs: 07/23/22 15:57 07/23/22 16:25 07/23/22 18:31 Temperature 97.3 F L 98 F Temperature Source Temporal Temporal Pulse Rate 115 H 85 Respiratory Rate 19 H 17 Respiratory Effort Normal Non-Labored Respiratory Pattern Normal Blood Pressure 158/106 H 194/121 H Blood Pressure Mean 123 145 Pulse Ox 99 97 Oxygen Delivery Method Room Air Room Air MDM <SHIRLEY Fletcher - Last Filed: 07/23/22 18:26> MDM MDM Narrative Medical decision making narrative: SHIRLEY note: Patient has had a few weeks of left facial droop and new episode of dizziness today. He also has recent new onset A. fib. Concern is he may have had a stroke. Labs and CT brain are unremarkable the patient will require admission for stroke work-up. I discussed the case with the hospitalist. I also notified the on-call [facility] foundation stage teacher that he will not be at his cardioversion appointment tomorrow morning. I have personally performed a face to face assessment of the patient and have reviewed the EDIN Note. I performed a substantive portion of the visit including all aspects of the following. My radford findings include: History is remarkable for dizziness. Patient states he was sitting. He went to lean forward to get out of the chair. He became dizzy. This lasted 20 to 30 minutes. He did not describe a spinning sensation. He thought it was more lightheadedness. He denied double vision, blurred vision, change in vision or visual defect. His thought he had slight slurring of his words. He was noted to have a slight facial droop on the left. This is new when compared to his drivers license. Patient states he believes he noted the slight asymmetry 4 weeks ago. 3 weeks ago he was diagnosed with atrial fibrillation. He does not believe he has had a echocardiogram. He is presently on anticoagulant. He states he has not missed any doses. Patient denies black or maroon-colored stool. Patient denies bruising easily. Patient denies bleeding of his gums when he brushes teeth. Has not noted blood in his urine. There is no past history of stroke. He does have history of type 2 diabetes, hypertension and elevated cholesterol. Exam is is remarkable for the facial droop noted on the left which is new and onset may have been 4 weeks ago. Patient's NIH is 1 because of the slight facial droop on the left. There is no dysmetria. Had patient ambulate. When he was walking he seemed to have slight shuffling of his feet. He attributed to the fact that he was wearing boots. He was able to walk on heels and toes. When I had him turn to do the a new maneuver he stumbled slightly. He had difficulty with tandem gait. He did not have nystagmus with central gaze. There is nystagmus with lateral gaze. This is horizontal nystagmus. Medical Decision Making in light of history of new onset A. fib, new facial droop from 4 weeks ago and stating that his speech was slightly slurred and he having difficulty ambulating concerned that patient may have had an embolic phenomenon. CT with contrast was ordered since first symptom occurred 4 weeks ago and patient's had elevated creatinine in the past. Patient and were informed that my concern is that he may have had a minor stroke. He was told he would need to be admitted to the hospital. Monitor reveals atrial fibrillation rate varying between 95 and 110. There is a n occasional ectopic beat i.e. ventricular premature beat versus aberrant beats. Twelve-lead EKG reveals atrial fibrillation with a controlled rate. Other additions or changes: Since patient is on anticoagulant he is not a candidate for tPA furthermore patient's first symptom occurred 1 month ago. We will need to contact his foundation stage teacher since she is scheduled for cardioversion tomorrow. Lab Data Attestation: I reviewed the patient's lab results. Labs: Laboratory Results - last 24 hr 07/23/22 07/23/22 16:47 16:47 WBC 5.5 RBC 4.53 L Hgb 13.5 Hct 41.5 MCV 91.6 MCH 29.8 MCHC 32.5 RDW Std Deviation 45.9 H RDW Coeff of Tammy 13.6 Plt Count 169 MPV 9.6 Immature Gran % (Auto) 0.500 Neut % (Auto) 59.2 Lymph % (Auto) 26.4 Toole % (Auto) 11.4 H Eos % (Auto) 1.8 Baso % (Auto) 0.7 Absolute Neuts (auto) 3.2 Absolute Lymphs (auto) 1.44 Nucleated RBC % 0 Sodium 140 Potassium 4.2 Chloride 105 Carbon Dioxide 28.0 Anion Gap 7 BUN 24 H Creatinine 1.38 H Estim Creat Clear Calc 48.42 Est GFR (MDRD) Af Amer 64 Est GFR (MDRD) Non-Af 53 L BUN/Creatinine Ratio 17.4 Glucose 113 H Calcium 9.3 Radiography Diagnostic Testing: Clinical Impression(s) from Imaging Studies Brain CT 07/23/22 16:55 IMPRESSION: 1. No acute intracranial abnormality. 2. Fluid within multiple right mastoid air cells. Electronically Signed: Matt Cramer MD at 17:30 EST , EKG Initial EKG: Attestation: I personally reviewed and interpreted this EKG as follows: Interpretation: Atrial Fibrillation Comments: A. fib with PVCs, RBBB Rate of 98 bpm <Dr. Baldemar Sullivan MD - Last Filed: 07/23/22 23:20> [facility] MDM Narrative Medical decision making narrative: I have personally performed a face to face assessment of the patient and have reviewed the EDIN Note. I performed a substantive portion of the visit including all aspects of the following. My radford findings include: History is remarkable for dizziness. Patient states he was sitting. He went to lean forward to get out of the chair. He became dizzy. This lasted 20 to 30 minutes. He did not describe a spinning sensation. He thought it was more lightheadedness. He denied double vision, blurred vision, change in vision or visual defect. His thought he had slight slurring of his words. He was noted to have a slight facial droop on the left. This is new when compared to his drivers license. Patient states he believes he noted the slight asymmetry 4 weeks ago. 3 weeks ago he was diagnosed with atrial fibrillation. He does not believe he has had a echocardiogram. He is presently on anticoagulant. He states he has not missed any doses. Patient denies black or maroon-colored stool. Patient denies bruising easily. Patient denies bleeding of his gums when he brushes teeth. Has not noted blood in his urine. There is no past history of stroke. He does have history of type 2 diabetes, hypertension and elevated cholesterol. Exam is is remarkable for the facial droop noted on the left which is new and onset may have been 4 weeks ago. Patient's NIH is 1 because of the slight facial droop on the left. There is no dysmetria. Had patient ambulate. When he was walking he seemed to have slight shuffling of his feet. He attributed to the fact that he was wearing boots. He was able to walk on heels and toes. When I had him turn to do the a new maneuver he stumbled slightly. He had difficulty with tandem gait. He did not have nystagmus with central gaze. There is nystagmus with lateral gaze. This is horizontal nystagmus. Medical Decision Making in light of history of new onset A. fib, new facial droop from 4 weeks ago and stating that his speech was slightly slurred and he having difficulty ambulating concerned that patient may have had an embolic phenomenon. CT with contrast was ordered since first symptom occurred 4 weeks ago and patient's had elevated creatinine in the past. Patient and were informed that my concern is that he may have had a minor stroke. He was told he would need to be admitted to the hospital. Monitor reveals atrial fibrillation rate varying between 95 and 110. There is an occasional ectopic beat i.e. ventricular premature beat versus aberrant beats. Twelve-lead EKG reveals atrial fibrillation with a controlled rate. Other additions or changes: Since patient is on anticoagulant he is not a candidate for tPA furthermore patient's first symptom occurred 1 month ago. We will need to contact his foundation stage teacher since she is scheduled for cardioversion tomorrow. Lab Data Attestation: I reviewed the patient's lab results. Lab results narrative: CBC is unremarkable. Basic metabolic panel does reveal an elevated creatinine of 1.38 with a GFR of 53. Glucose is slightly elevated 113. CO2 anion gap are normal. Labs: Laboratory Results - last 24 hr 07/23/22 07/23/22 16:47 16:47 WBC 5.5 RBC 4.53 L Hgb 13.5 Hct 41.5 MCV 91.6 MCH 29.8 MCHC 32.5 RDW Std Deviation 45.9 H RDW Coeff of Tammy 13.6 Plt Count 169 MPV 9.6 Immature Gran % (Auto) 0.500 Neut % (Auto) 59.2 Lymph % (Auto) 26.4 Toole % (Auto) 11.4 H Eos % (Auto) 1.8 Baso % (Auto) 0.7 Absolute Neuts (auto) 3.2 Absolute Lymphs (auto) 1.44 Nucleated RBC % 0 Sodium 140 Potassium 4.2 Chloride 105 Carbon Dioxide 28.0 Anion Gap 7 BUN 24 H Creatinine 1.38 H Estim Creat Clear Calc 48.42 Est GFR (MDRD) Af Amer 64 Est GFR (MDRD) Non-Af 53 L BUN/Creatinine Ratio 17.4 Glucose 113 H Calcium 9.3 Radiography Diagnostic Testing: Clinical Impression(s) from Imaging Studies Brain CT 07/23/22 16:55 IMPRESSION: 1. No acute intracranial abnormality. 2. Fluid within multiple right mastoid air cells. Electronically Signed: Matt Cramer MD at 17:30 EST , Reviewed CAT scan. There is no obvious intracranial bleed on my review or obvious stroke. Awaiting formal read by radiologist. Formal read by radiologist revealed no acute intracranial abnormality. He did comment there is fluid within multiple right mastoid air cells. Discharge Plan Dx/Rx/DC Orders Clinical Impression: Facial droop, Dizziness, Atrial fibrillation with rapid ventricular response, Benign hypertension, Type 2 diabetes mellitus, Hyperlipidemia, History of recent stroke Disposition Disposition: Acute Care [facility] Discharge Date/Time: 07/23/22 18:35
--- NOTE | 2022-07-23 16:18 | EKG12_ITS ---
Test Reason : DIZZINESS Blood Pressure : / mmHG Vent. Rate : 098 BPM Atrial Rate : 000 BPM P-R Int : 000 ms QRS Dur : 142 ms QT Int : 400 ms P-R-T Axes : 000 225 045 degrees QTc Int : 510 ms Atrial fibrillation with premature ventricular or aberrantly conducted complexes Right bundle branch block Abnormal ECG Confirmed by IRVING HASTINGS, YOANA ([id number]), film editor KINGA GOODE ([id number]) on 07/24/2022 1:09:54 PM Referred By: Confirmed By:YOANA VILLATORO MD
--- NOTE | 2022-07-23 16:55 | CT_ITS ---
EXAM: CT HEAD WITHOUT INTRAVENOUS CONTRAST CLINICAL INDICATION: dizziness, rule out stroke TECHNIQUE: Multiple axial images were obtained of the head without intravenous contrast. This CT exam was performed using one or more of the following dose reduction techniques: automated exposure control, adjustment of the mA and/or kV according to patient size, and/or use of iterative reconstruction technique. This report was created using [employer] report generation technology. COMPARISON: None. FINDINGS: BRAIN AND EXTRA-AXIAL SPACES: Unremarkable. No intra- or extra-axial hemorrhage. No evidence of acute infarct. No intracranial mass or mass effect. There is preservation of the alfaro/white matter interface. Posterior fossa structures are unremarkable. Ventricles are appropriate for age. No hydrocephalus. Basal cisterns are patent. BONES/JOINTS: Unremarkable. No discrete lytic or blastic abnormalities. SINUSES: Unremarkable as visualized. Clear. MASTOID AIR CELLS: Is opacification of multiple right mastoid air cells. ORBITS: Visualized globes, extraocular muscles, optic nerves and retrobulbar fat appear unremarkable. CT/Brain/Head without Contrast IMPRESSION: 1. No acute intracranial abnormality. 2. Fluid within multiple right mastoid air cells. Electronically Signed: Matt Cramer MD at 17:30 EST ,
[2022-07-23 17:03] LABS: Absolute Lymphocyte Count 1.44 X10^3/uL (0.83-4.51); Absolute Neutrophil Count 3.2 X10^3/uL (2.0-7.7); Basophil# 0.04 X10^3/uL; Basophil% 0.7 % (0-1); Eosinophils% 1.8 % (0-5); Hematocrit 41.5 % (40-54); Hemoglobin 13.5 g/dL (13.0-16.5); Lymphocyte # 1.44 X10^3/ul (0.83-4.51); Lymphocyte % 26.4 % (19-41); Mean Corp Hgb Conc 32.5 g/dL (32-36); Mean Corpuscular Hgb 29.8 pg (27.0-32.0); Mean Corpuscular Volume 91.6 fL (80-94); Mean Platelet Vol. 9.6 fl (6.2-12.0); Monocyte# 0.62 X10^3/uL; Monocyte% 11.4 % (0-10); NRBC Flagged by Analyzer 0 % (0-5); Neutrophil # 3.23 X10^3/uL (2.7-7.7); Neutrophil % 59.2 % (47-70); Platelet Count 169 K/mm3 (150-450); RBC Distribution Width CV 13.6 % (11.6-14.6); RBC Distribution Width SD 45.9 fl (35.1-43.9); Red Blood Count 4.53 M/mm3 (4.6-6.2); White Blood Count 5.5 K/mm3 (4.4-11.0)
[2022-07-23 17:16] LABS: Anion Gap 7 (5-15); BUN 24 mg/dL (7-18); BUN/Creat Ratio 17.4 RATIO (10-20); Calcium,Total 9.3 mg/dL (8.5-10.1); Chloride 105 mmol/L (98-107); Creatinine, Serum 1.38 mg/dL (0.70-1.30); EST Glomerular Filtration Rate 53 mL/min (>60); Est Glom Filt Rate - Afr Amer 64 mL/min (>60); Estimated Creatinine Clearance 48.42 ml/min; Glucose 113 mg/dL (74-106); Potassium 4.2 mmol/L (3.5-5.1); Sodium Level 140 mmol/L (136-145)
--- NOTE | 2022-07-23 18:15 | NURSING ---
PCU OBS ANGIE HARTLEY R/O
--- NOTE | 2022-07-23 18:22 | NURSING ---
DR JAVI LANDA, O/C [facility] [phone]
[2022-07-23 18:31] VITALS: BP 194/121; PULSE 85; RESP 17; TEMP 36.6; O2SAT 97
--- NOTE | 2022-07-23 18:44 | PCM.HP.STD ---
HPI - General General Date of Admission: 07/23/22 Date of Service: 07/23/22 Chief Complaint: Dizziness HPI Narrative ARAVIND GRIER, is a 76 M who presents with dizziness. Patient turned his head to the left to look at something that the had an really dizzy. He had to lay back down and the dizziness did improve. He just felt very unwell and weak. Symptoms slowly improved but still was dizzy throughout the day but sent attention in the emergency room. By time he arrived here, his dizziness had resolved and the patient has been up without difficulty. They did notice, however the patient had a left facial droop. Patient had noticed previously when he was shaving that his left side of his face was drooping more so than his right and had not noted that before. This was noted days before. Patient has been found to have A. fib and is on metoprolol and apixaban for this. Patient is was scheduled to have a cardioversion on the 6 Sevodyne. The ED spoke with patient about transferring him to my [facility] where this procedure was scheduled to be performed or staying here. The patient wish to stay here. In the past, patient has had some transient dizziness with change in position but nothing to this extent. Denies any unilateral weakness. Patient did have some slurred speech earlier. [facility] Medical History (Updated 07/23/22 @ 18:[address] Shar Torres DO) Atrial fibrillation COVID Diabetes High cholesterol Hypertension Home Medications atorvastatin 20 mg tablet 60 mg PO QHS 03/21/16 [History Last Taken Unknown] metformin (bulk) 100 % powder 500 tab PO QHS 03/21/16 [History Last Taken Unknown] metformin 500 mg 24 hr tablet,extended release 1,000 mg PO DAILY 03/21/16 [History Last Taken Unknown] omeprazole 10 mg capsule,delayed release 10 mg PO DAILY 03/21/16 [History Last Taken Unknown] losartan 100 mg tablet 100 mg PO DAILY 05/01/17 [History Last Taken 05/02/17 07:00] Allergy/AdvReac Type Severity Reaction Status Date / Time No Known Allergies Allergy Verified 08/29/17 18:49 Surgical History Heart valve replaced Social History Smoking Status: Former smoker ROS ROS Narrative All review of systems were negative except as mentioned above in the history of present illness and the other review of systems. Vital Signs Vital Signs Vital Signs: 07/23/22 15:57 07/23/22 16:25 07/23/22 18:31 Temperature 36.3 C L 36.6 C Temperature Source Temporal Temporal Pulse Rate 115 H 85 Respiratory Rate 19 H 17 Respiratory Effort Normal Non-Labored Respiratory Pattern Normal Blood Pressure 158/106 H 194/121 H Blood Pressure Mean 123 145 Pulse Ox 99 97 Oxygen Delivery Method Room Air Room Air Weight Weight: 102.512 kg Body Mass Index (BMI) 30.6 Physical Exam Narrative - Physical Exam General: Alert, Oriented x3, Cooperative HEENT: Atraumatic, PERRLA, EOMI, Normocephalic Oral: Moist Mucosa, No Gingival or Mucosal Lesions/ Ulcerations Neck: Supple, No JVD, Negative Carotid Bruits Lungs: Clear to auscultation, Normal air movement Cardiovascular: Regular rate, Normal S1, Normal S2, No murmurs Abdomen: Bowel Sounds Present, Soft, Non Tender, Non-Distended, No Hepato-splenomegaly Extremities: No clubbing, No cyanosis, No edema, Capillary Refill Less than 3 Seconds Skin: No rashes, No breakdown Musculoskeletal: No Tenderness to Palpation of Joints or Extremities Neurological: Neuro grossly intact. Cranial nerves II through XII gross intact strength 5-5 in upper and lower extremities bilaterally. Finger-nose intact. Sensations grossly intact. Patient does have a subtle left facial droop. Psych/Mental Status: Normal Affect, Appropriate Results Lab / Micro Data Attestation: I reviewed the patient's lab results. Result Diagrams: 07/23/22 16:47 07/23/22 16:47 Labs: Laboratory Results - last 24 hr 07/23/22 16:47: WBC 5.5, RBC 4.53 L, Hgb 13.5, Hct 41.5, MCV 91.6, MCH 29.8, MCHC 32.5, RDW Std Deviation 45.9 H, RDW Coeff of Tammy 13.6, Plt Count 169, MPV 9.6, Immature Gran % (Auto) 0.500, Neut % (Auto) 59.2, Lymph % (Auto) 26.4, [place] % (Auto) 11.4 H, Eos % (Auto) 1.8, Baso % (Auto) 0.7, Absolute Neuts (auto) 3.2, Absolute Lymphs (auto) 1.44, Nucleated RBC % 0 07/23/22 16:47: Sodium 140, Potassium 4.2, Chloride 105, Carbon Dioxide 28.0, Anion Gap 7, BUN 24 H, Creatinine 1.38 H, Estim Creat Clear Calc 48.42, Est GFR (MDRD) Af Amer 64, Est GFR (MDRD) Non-Af 53 L, BUN/Creatinine Ratio 17.4, Glucose 113 H, Calcium 9.3 EKG Initial EKG: Attestation: I personally reviewed and interpreted this EKG as follows: EKG Rhythm Intrepretation: Atrial Fibrillation Radiology Impression Brain CT 07/23/22 16:55 IMPRESSION: 1. No acute intracranial abnormality. 2. Fluid within multiple right mastoid air cells. Electronically Signed: Matt Cramer MD at 17:30 EST , Assessment & Plan Assessment/Plan (1) CVA (cerebral vascular accident): PLAN: Suspected Patient's symptoms were left facial droop and slurred speech and patient with known atrial fibrillation. Head CT showed no acute process Continue with apixaban Testing: MRI of the brain, MRA of the head neck, 2D echocardiogram, fasting lipid panel (2) Vertigo: PLAN: Resolved Suspect BPPV though cannot rule out posterior circulation stroke As needed meclizine (3) Atrial fibrillation with rapid ventricular response: PLAN: Variable but does get into the 1 teens and 120s at time Continue with the metoprolol tartrate but also add as needed metoprolol IV for heart rate that sustained greater than 120 Patient may need further modifications regards to his medications which are his metoprolol tartrate. Patient was given the opportunity to go to [facility] where he was to have a cardioversion tomorrow. Patient declined at this time. Patient aware that they will need to be rescheduled unless he becomes unstable when he is here. PLAN: Plan Chronic conditions Diabetes mellitus type 2: Continue with metformin. Check an A1c. Sliding scale insulin Hypertension: Given concern for stroke, will hold the losartan. VTE prophylaxis: Not indicated as patient is already on anticoagulation. Case discussed with patient's and daughter at bedside. Charges/Coding Visit Charges Inpatient E&M: 96297 Init Hosp L3
[2022-07-23 18:47] VITALS: BMI 29.6
[2022-07-23 19:05] VITALS: BP 147/93; PULSE 99; RESP 18; TEMP 36.9; O2SAT 97
--- NOTE | 2022-07-23 19:08 | ECHOD_ITS ---
Reason For Study: TIA/CVA Procedure This was a 2D Doppler, Color Flow transthoracic echocardiogram. Exam performed portable in patient room. Left Ventricle Normal LV size. Left ventricular systolic function is normal. The estimated ejection fraction is 60 %. Stage 2 diastolic dysfunction. No regional wall motion abnormalities noted. Right Ventricle Normal RV size. Normal systolic function. Atria Normal left atrium. Normal right atrium. Bubble contrast study negative for right to left interatrial shunt. Mitral Valve Mitral valve leaflets are pliable but the base of the mitral valve has a thickened structure which is likely fibrous tissue. Tricuspid Valve Normal tricuspid valve. Mild (1+) tricuspid valve insufficiency. Pulmonary artery systolic pressure is 30 mmHg. Aortic Valve The base of the aortic valve to the mitral valve has 2.4 x 1.7 cm structure which is likely fibrous tissue but can potentially cause thromboemboli. Will recommend SERA. Peak aortic valve gradient 23 mmHg. Mean aortic valve gradient 14 mmHg. Bioprosthetic aortic valve functioning normally. Pulmonic Valve Normal pulmonic valve. Mild (1+) pulmonic valve insufficiency. Great Vessels Normal aortic root. The pulmonary artery is normal size. Normal inferior vena cava. Pericardium/Pleural No pericardial effusion. Medication Performed a rapid injection of agitated mix of 9 cc saline and 1cc air to assess for atrial septal defect. MMode/2D Measurements & Calculations LVIDd: 4.8 cm IVSd: 1.0 cm LVOT diam: 2.0 cm LVIDs: 3.2 cm LVPWd: 1.0 cm FS: 33.5 % LVOT area: 3.3 cm2 Ao root diam: 3.4 cm LAV(MOD-bp): 57.4 ml LVAd ap4: 29.8 cm2 LAV(MOD-bp) Indexed: 26.0 ml/m2 LVLd ap4: 7.9 cm LAV(MOD-sp2): 58.3 ml EDV(MOD-sp4): 92.6 ml LAV(MOD-sp4): 54.8 ml EDV(sp4-el): 95.0 ml LVAs ap4: 18.4 cm2 LVLs ap4: 7.5 cm ESV(MOD-sp4): 38.8 ml ESV(sp4-el): 38.0 ml EF(MOD-sp4): 58.1 % EF(sp4-el): 60.0 % SV(MOD-sp4): 53.8 ml SV(sp4-el): 57.0 ml LA A4 area: 21.4 cm2 LA dimension(2D): 3.6 cm RA A4 area: 19.4 cm2 Time Measurements MV dec time: 0.18 sec Doppler Measurements & Calculations MV E max mio: 127.2 cm/sec Lat Peak E' Mio: 10.5 cm/sec Med Peak E' Mio: 7.3 cm/sec MV A max mio: 75.1 cm/sec E/E' lat: 12.1 E/E' med: 17.4 MV E/A: 1.7 Ao V2 max: 239.9 cm/sec LV V1 max: 88.7 cm/sec SV(LVOT): 64.3 ml Ao max P.1 mmHg LV V1 max P.2 mmHg Ao V2 mean: 178.9 cm/sec LV V1 mean P.8 mmHg Ao mean P.2 mmHg LV V1 mean: 63.3 cm/sec Ao V2 VTI: 54.2 cm LV V1 VTI: 19.6 cm AV (velocity ratio): 0.36 ESTHELA(I,D): 1.2 cm2 ESTHELA(V,D): 1.2 cm2 PA V2 max: 79.1 cm/sec TR max mio: 259.1 cm/sec TR max P.8 mmHg ECHO/Echo Complete Interpretation Summary Normal LV size. Left ventricular systolic function is normal. The estimated ejection fraction is 60 %. Mean aortic valve gradient 14 mmHg. Bioprosthetic aortic valve functioning normally. Mitral valve leaflets are pliable but the base of the mitral valve has a thicke marjorie structure which is likely fibrous tissue. The base of the aortic valve to the mitral valve has 2.4 x 1.7 cm structure whi ch is likely fibrous tissue but can potentially cause thromboemboli. Will recommend SERA Stage 2 diastolic dysfunction. Pulmonary artery systolic pressure is 30 mmHg. Ordering Physician: Shar Torres Referring Physician: LAURA MATT Performed By: Maya Rodrigues RDCS
[2022-07-23 20:00] VITALS: BP 152/87; PULSE 87; RESP 18; TEMP 36.4; O2SAT 99
[2022-07-23 20:00] LABS: Troponin-I HS 12 pg/mL (3.0-78.0)
--- NOTE | 2022-07-23 20:14 | NURSING ---
[facility], pt has had 2 moderna COVID vaccines pt does not have COVID vaccine information
[2022-07-23 22:19] VITALS: BP 123/89; PULSE 85
[2022-07-23 22:22] VITALS: PULSE 85
[2022-07-23] MEDS: Metoprolol Tartrate 50 MG Tablet PO (22:22)
[2022-07-23] MEDS: Atorvastatin Calcium 20 MG Tablet 60 MG PO (22:22)
[2022-07-23] MEDS: APIXABAN 5 MG TABLET PO (22:22)
[2022-07-24] VITALS (10 sets, daily range): BP systolic 110–168; BP diastolic 78–97; PULSE 71–98; RESP 16–20; TEMP 36.3–36.6; O2SAT 94–98; BMI 29.6
[2022-07-24 07:10] LABS: Bedside Glucose 130 mg/dL (74-106)
--- NOTE | 2022-07-24 07:21 | PCM.PN.HOSP ---
Subjective Subjective This is a 76-year-old white male who presented to the emergency department yesterday 07/23/2022 with dizziness. Patient reporting he turned his head to the left to look at something that his was holding and he became very dizzy. He had to lie back down and the dizziness did improve but following he felt very unwell and weak. His symptoms slowly resolved throughout the day but his dizziness did persist and therefore he sought attention in the emergency department. By the time he arrived here, fortunately, his dizziness had resolved but they did notice on exam he had some left facial droop. The patient noticed this previously when he was shaving the left side of his face but the timing on this was unclear. The patient was found to have A-fib and is on metoprolol and apixaban for this. He was at a routine physical about 3 weeks ago when they noted him to be in a flutter and started Eliquis at that time. It is documented that he was to have a cardioversion today at [facility] and transfer was offered however the patient preferred to stay here. He denied any unilateral weakness however he did have some slurred speech earlier which has since resolved. With regards to his dizziness BPPV is suspected however posterior circulation stroke cannot be ruled out and an MRI will be performed along with an MRA of the head and neck and a 2D echo. With regards to his A-fib with RVR we will go ahead and continue his metoprolol with as needed IV metoprolol for now as well as his Eliquis. Patient states all of his symptoms have resolved at this time. It sounds as if the facial droop has been coming and going as he is reported that he noticed intermittently predominantly with shaving about a week ago and then was noticed again yesterday. No further dizziness. Patient was anxious to go home however I did explain that his TTE showed some abnormality that was concerning and cardiology wanted to perform SERA to rule out thromboembolism. Patient voiced understanding. Family at bedside and all questions were answered. Objective Data Objective Data Vital Signs: Vital Signs Temp Pulse Resp BP Pulse Ox O2 Del Method 97.4 F L 78 20 H 110/96 H 96 Room Air 07/24/22 04:00 07/24/22 04:00 07/24/22 04:00 07/24/22 04:00 07/24/22 04:00 07/24/22 04:00 Oxygen Delivery Method Room Air Weight: 99 kg Body Mass Index (BMI) 29.6 Intake & Output: Intake and Output for Last 24 Hours 07/22/22 07/23/22 07/24/22 23:59 23:59 23:59 Intake Total 420 / 420 Balance 420 / 420 Lab / Micro Data Result Diagrams: 07/23/22 16:47 07/24/22 05:53 Labs: Laboratory Results - last 24 hr 07/23/22 16:47: WBC 5.5, RBC 4.53 L, Hgb 13.5, Hct 41.5, MCV 91.6, MCH 29.8, MCHC 32.5, RDW Std Deviation 45.9 H, RDW Coeff of Tammy 13.6, Plt Count 169, MPV 9.6, Immature Gran % (Auto) 0.500, Neut % (Auto) 59.2, Lymph % (Auto) 26.4, Marin % (Auto) 11.4 H, Eos % (Auto) 1.8, Baso % (Auto) 0.7, Absolute Neuts (auto) 3.2, Absolute Lymphs (auto) 1.44, Nucleated RBC % 0 07/23/22 16:47: Sodium 140, Potassium 4.2, Chloride 105, Carbon Dioxide 28.0, Anion Gap 7, BUN 24 H, Creatinine 1.38 H, Estim Creat Clear Calc 48.42, Est GFR (MDRD) Af Amer 64, Est GFR (MDRD) Non-Af 53 L, BUN/Creatinine Ratio 17.4, Glucose 113 H, Calcium 9.3 07/23/22 19:22: Troponin I High Sens 12 07/24/22 06:02: POC Glucose 130 H Radiography Diagnostic Testing: Radiology Impression Brain CT 07/23/22 16:55 IMPRESSION: 1. No acute intracranial abnormality. 2. Fluid within multiple right mastoid air cells. Electronically Signed: Matt Cramer MD at 17:30 EST , Physical Exam Const alert, oriented x3, no apparent distress, healthy appearing and well nourished Constitutional Narrative: Overweight, older, white male sitting up in a chair at the bedside, family members at bedside, patient appears comfortable and nontoxic HEENT head/scalp atraumatic, moist oral mucous membranes and oropharynx normal HEENT Narrative: Mallampati 2-3, no thrush Resp normal respiratory effort, no retractions, no use of accessory muscles and clear to auscultation bilaterally Auscultation: Negative for crackles, rhonchi or wheezes Cardio regular rate, S1 normal heart sound, S2 normal heart sound, no rub, no gallops and no clicks; Negative for no murmurs Cardio Narrative: Irregular irregular rhythm, 2 out of 6 systolic murmur loudest at left upper sternal border GI normal to inspection, nondistended, normoactive bowel sounds, soft to palpation and non-tender Extremity no clubbing, cyanosis or edema Extremity Narrative: 2+ pedal pulses Neuro oriented x3, CN's II-XII intact bilaterally, moves all extremities, no focal motor deficits and no sensory deficits noted Speech: speech normal Motor Exam: strength 5/5 throughout Psych affect normal Psych Narrative: Very pleasant, appropriately interactive Assessment & Plan Assessment/Plan (1) Atrial fibrillation with rapid ventricular response: (2) Elevated serum creatinine: (3) Facial droop: (4) Dysarthria: (5) Dizziness: (6) Facial droop: PLAN: Plan Dizziness/facial droop/dysarthria -Upon presentation it was suspected that his dizziness was likely related to BPPV and has since resolved -Suspect TIA with recent history of newly diagnosed A-fib/flutter -MRI negative for any stroke -MRA of the head and neck was unremarkable -Echocardiogram showed an EF of 60% with a mean aortic valve gradient of 14 mmHg and a stable appearing bioprosthetic aortic valve, a thickened structure that suspected to be fibrous tissue at the base of the mitral valve as well as a structure that is 2.4 x 1.7 cm at the base of the aortic valve to the mitral valve which appears to be fibrous like tissue but was concerning for thromboemboli and SERA was recommended, stage II diastolic dysfunction, pulmonary systolic pressure of 30 mmHg -Hemoglobin A1c 7.1 -Total cholesterol was 137/LDL 55/HDL 43 -SOC neurology consulted -Continue aspirin -Continue atorvastatin but increase to 80 mg dose from 60 mg -Will likely be able to go back on his home dose at discharge but will await neurology's recommendation -PT/OT consultation pending A-fib/flutter with RVR -Heart rates appear to be more controlled since admission to the floor ranging from 71-99 -Patient was evidently supposed to have a cardioversion today at [facility] -We will need to reschedule and follow-up as an outpatient -Did discuss possible SERA cardioversion here with Dr. Fairchild but he would prefer he wait and does this as an outpatient -Continue metoprolol--> overall heart rates appear to be fairly controlled at this time -If patient required as needed dosing through the night may need to increase from 50 mg -Continue Eliquis -Would place patient at increased risk for strokes -This was diagnosed approximately 3 weeks ago Serum creatinine elevation -Baseline is unclear however in February 2022 serum creatinine was 1.08 however does appear to fluctuate between 1.0 and 1.2 -On admission serum creatinine is 1.38 -Serum creatinine is back to baseline today at 1.15 -Patient would be at risk for nephropathy with his history of diabetes Hyperlipidemia -Lipid panel as noted above with good control on his home statin dosing -Continue statin but increase to 80 mg dosing with concerns for stroke Hypertension -Continue home losartan -Continue metoprolol DM-2 -Hemoglobin A1c 7.1 -Hold metformin while hospitalized and likely reached discharge if and so sliding scale insulin before meals and at bedtime -Accu-Cheks as ordered GERD -Continue PPI DVT prophylaxis -Patient is fully anticoagulated with apixaban CODE STATUS -Full code Charges/Coding Visit Charges Inpatient E&M: 41964 Subs Hosp L2 Reason for Visit Reason for Visit: Diagnoses Unspecified atrial fibrillation (07/23/22) Cerebral infarction, unspecified (07/23/22) Dizziness and giddiness (07/23/22)
[2022-07-24 07:31] LABS: Cholesterol 137 mg/dL (200); High Density Lipoprotein 43 mg/dL; Triglycerides 197 mg/dL; Very Low Density Lipoprotein 39 mg/dL (5-40)
[2022-07-24 08:08] LABS: ALB/GLOB Ratio 1.1 RATIO (0.9-2.4); AST(SGOT) 22 U/L (15-37); Alanine Aminotransfer ALT/SGPT 31 U/L (16-61); Albumin, Serum 3.4 g/dL (3.2-5.0); Alkaline Phosphatase 52 U/L (45-117); Anion Gap 10 (5-15); BUN 26 mg/dL (7-18); BUN/Creat Ratio 22.6 RATIO (10-20); Calcium,Total 8.9 mg/dL (8.5-10.1); Chloride 105 mmol/L (98-107); Creatinine, Serum 1.15 mg/dL (0.70-1.30); EST Glomerular Filtration Rate 65 mL/min (>60); Est Glom Filt Rate - Afr Amer 79 mL/min (>60); Estimated Creatinine Clearance 58.11 ml/min; Globulin 3.2 g/dL (2.2-4.2); Glucose 123 mg/dL (74-106); Potassium 4.1 mmol/L (3.5-5.1); Protein, Total 6.6 g/dL (6.4-8.2); Sodium Level 140 mmol/L (136-145)
[2022-07-24] MEDS: Aspirin 81 MG TAB.CHEW PO (08:45)
[2022-07-24] MEDS: Pantoprazole Sodium 20 MG Tablet PO (08:45)
[2022-07-24] MEDS: Metoprolol Tartrate 50 MG Tablet PO ×2 (08:45→21:44)
[2022-07-24] MEDS: APIXABAN 5 MG TABLET PO ×2 (08:45→21:44)
[2022-07-24 08:54] LABS: Hemoglobin A1c 7.1 % (3.8-5.6)
--- NOTE | 2022-07-24 09:40 | CASEMGMT ---
RN CM Face to Face with patient for initial transition planning/care coordination assessment. RN CM introduced self and role at [facility]. Patient lying in bed, alert and oriented, family at bedside. Patient willing to participate in assessment and is able to answer all questions appropriately. Care providers, pharmacy, and demographics verified. Patient wishes to discharge home, denies need for home health at this time. Patient states she has no further needs or concerns at this time. CM to follow for discharge planning needs that may arise. PCP: Joyce Specialists: Destiny set up mold technician Preferred Pharmacy: [facility] Retail at discharge. Insurance: [employer] Prescription Benefit: yes Living Will/HPOA: none LNOK: Living Arrangements: Patient lives with in a single story home with 4-5 steps and railing to enter the home. Patient states he is independent at home. Transportation: self, daughters DME/HHC: Patient denies DME or previous HHC or SNF. Disposition Plan: Patient to discharge home with family support and follow-up plans in place. Angely SQUIRES, RN, CM
--- NOTE | 2022-07-24 10:02 | MRI_ITS ---
EXAM: MR HEAD WITHOUT INTRAVENOUS CONTRAST CLINICAL INDICATION: left facial droop TECHNIQUE: Multiplanar and multisequence MR images of the brain were obtained without intravenous contrast. This report was created using [employer] report generation technology. COMPARISON: CT head without contrast 07/23/2022. FINDINGS: BRAIN AND EXTRA-AXIAL SPACES: Unremarkable. No intra- or extra-axial hemorrhage. No evidence of acute infarct. No intracranial mass or mass effect. There is preservation of the alfaro/white matter interface. Posterior fossa structures are unremarkable. Ventricles are appropriate for age. No hydrocephalus. Basal cisterns are patent. SELLA: Unremarkable. Normal sella turcica, pituitary gland, infundibular stalk, optic chiasm and hypothalamus. AUDITORY SYSTEM: Unremarkable. The internal auditory canals are patent. BONES/JOINTS: See below. SINUSES: Unremarkable as visualized. Clear. MASTOID AIR CELLS: Mucosal edema in the right temporal mastoid bone. ORBITS: Unremarkable as visualized. Both globes, extraocular muscles, optic nerves and retrobulbar fat appear unremarkable. VASCULATURE: Unremarkable as visualized. Normal flow voids in the major intracranial circulation. MRI/Brain without Contrast IMPRESSION: 1. Non-coalescent mucosal edema in the right temporal mastoid bone otherwise negative MRI brain without contrast. 2. No interval change when compared to CT head without contrast of 07/23/2022. Electronically Signed: Reg Andino MD at 10:48 EST ,
--- NOTE | 2022-07-24 10:02 | MRI_ITS ---
STUDY: MRA OF THE HEAD WITHOUT CONTRAST REASON FOR EXAM: Male, 76 years old. Left facial droop TECHNIQUE: 3-D [id number] (TOF) imaging was performed with MIPs. The study was performed unenhanced. COMPARISON: None. FINDINGS: Normal bilateral petrous carotid arteries. Normal right cavernous carotid artery with a normal supraclinoid bifurcation. Normal left cavernous carotid artery with a normal supraclinoid bifurcation. Normal right A1 segment of the anterior cerebral artery. Normal left A1 segment of the anterior cerebral artery. Normal intact anterior communicating artery (ACOM). Normal bilateral A2 segments of the anterior cerebral arteries. Normal right M1 and M2 segments of the middle cerebral arteries, with a normal M1 bifurcation. Normal left M1 and M2 segments of the middle cerebral arteries, with a normal M1 bifurcation. No visible right posterior communicating artery (PCOM). No visible left posterior communicating artery (PCOM). Normal bilateral vertebral arteries. Normal basilar artery with a normal basilar bifurcation. The visualized bilateral superior cerebellar (SCA) arteries are normal. Normal bilateral P1, P2 and visualized P3 segments of the posterior cerebral arteries. There is no demonstrated aneurysm of the [place]. There is no major vessel occlusion or hemodynamically significant stenosis. There is no demonstrated abnormality of the visualized brain. MRI/MRA Head ONLY without Contrast IMPRESSION: Normal MRA of the head Electronically Signed: Reg Andino MD at 10:50 EST ,
--- NOTE | 2022-07-24 10:03 | MRI_ITS ---
STUDY: MRA NECK WITHOUT CONTRAST REASON FOR EXAM: Male, 76 years old. Left facial droop TECHNIQUE: Source images were obtained, MIPs were performed. The study was performed unenhanced. COMPARISON: None. FINDINGS: RIGHT CAROTID ARTERIES: Normal right common carotid artery (CCA). Normal right carotid bulb. Normal origin of the right internal carotid (ICA) artery without a hemodynamically significant stenosis. Normal visualized cervical portion of the right internal carotid artery. Normal origin of the right external carotid artery (ECA). LEFT CAROTID ARTERIES: Normal left common carotid artery (CCA). Normal left carotid bulb. Normal origin of the left internal carotid (ICA) artery without a hemodynamically significant stenosis. Normal visualized cervical portion of the left internal carotid artery. Normal origin of the left external carotid artery (ECA). VERTEBRAL ARTERIES: Normal antegrade flow within the bilateral vertebral artery without a hemodynamically significant stenosis. MRI/MRA Neck without Contrast IMPRESSION: Normal bilateral cervical carotid and vertebral arteries. Electronically Signed: Reg Andino MD at 10:50 EST ,
--- NOTE | 2022-07-24 11:19 | TELEMED_ITS ---
[facility] Telemed has confirmed receipt of a request for visit. This document confirms receipt of the order initiating the consult. To find the results of the consultation, please view the patient's reports for the scanned Telemed Consult.
[2022-07-24 11:35] LABS: Bedside Glucose 181 mg/dL (74-106)
--- NOTE | 2022-07-24 12:08 | CHAPLAIN ---
Type of Pastoral Visit _x__ Initial Visit ___ Follow-up Visit ___ On-call Visit ___ General Patient Visit ___ Spiritual Assessment ___ Family Conference ___ Bereavement ___ Rapid Response ___ Code Blue ___ Other (describe below) Pastoral Care Referral From _x__ Patient ___ Family ___ Nurse ___ Physician ___ Executive Compensation Analyst ___ [employer] ___ Other (describe below) Sacrament/Intervention _x__ Active listening ___ Anointing ___ Jewish ___ Bereavement ___ Communion ___ Andree exploration ___ ___ Life review ___ Prayer ___ Reconciliation ___ Sacrament of Sick ___ Supportive presence ___ Wedding ___ Other (describe below) Pastoral Comments patient and spouse are in the room; pt reports that he is feeling better than yesterday, has had tests, and is now waiting on results; pt goal is to go home today due to feeling better; no other concerns
[2022-07-24 16:50] LABS: Bedside Glucose 174 mg/dL (74-106)
[2022-07-24] MEDS: Atorvastatin Calcium 20 MG Tablet 80 MG PO (21:44)
[2022-07-24 23:21] LABS: Bedside Glucose 188 mg/dL (74-106)
[2022-07-25] VITALS (7 sets, daily range): BP systolic 142–155; BP diastolic 80–95; PULSE 67–116; RESP 16–20; TEMP 36.3–36.8; O2SAT 94–98; BMI 29.6
[2022-07-25 06:25] LABS: Absolute Lymphocyte Count 1.46 X10^3/uL (0.83-4.51); Absolute Neutrophil Count 3.5 X10^3/uL (2.0-7.7); Basophil# 0.05 X10^3/uL; Basophil% 0.9 % (0-1); Eosinophil# 0.14 X10^3/uL; Eosinophils% 2.4 % (0-5); Hematocrit 43.5 % (40-54); Hemoglobin 14.2 g/dL (13.0-16.5); Lymphocyte # 1.46 X10^3/ul (0.83-4.51); Lymphocyte % 25.2 % (19-41); Mean Corp Hgb Conc 32.6 g/dL (32-36); Mean Corpuscular Hgb 29.5 pg (27.0-32.0); Mean Corpuscular Volume 90.4 fL (80-94); Mean Platelet Vol. 9.7 fl (6.2-12.0); Monocyte# 0.61 X10^3/uL; Monocyte% 10.5 % (0-10); NRBC Flagged by Analyzer 0 % (0-5); Neutrophil % 60.5 % (47-70); Platelet Count 175 K/mm3 (150-450); RBC Distribution Width CV 13.4 % (11.6-14.6); RBC Distribution Width SD 44.5 fl (35.1-43.9); Red Blood Count 4.81 M/mm3 (4.6-6.2); White Blood Count 5.8 K/mm3 (4.4-11.0)
[2022-07-25 07:12] LABS: Anion Gap 8 (5-15); BUN 23 mg/dL (7-18); BUN/Creat Ratio 19.3 RATIO (10-20); Chloride 105 mmol/L (98-107); Creatinine, Serum 1.19 mg/dL (0.70-1.30); EST Glomerular Filtration Rate 63 mL/min (>60); Est Glom Filt Rate - Afr Amer 76 mL/min (>60); Estimated Creatinine Clearance 56.15 ml/min; Glucose 153 mg/dL (74-106); Potassium 4.4 mmol/L (3.5-5.1); Sodium Level 139 mmol/L (136-145); Thyroid Stim Hormone (TSH) 5.36 uIU/mL (0.358-3.74)
--- NOTE | 2022-07-25 08:00 | ECHOTEE_ITS ---
Reason For Study: CVA, R/O valve mass Medication SERA probe 6VT-D (SN [id number]) passed without difficulty. No complications were noted. Cetacaine Topical Lynn given X4 orally. Versed 2 mg given slow IVP. Fentanyl 50 mcg given slow IVP. Performed a rapid injection of agitated mix of 9 cc saline and 1cc air to assess for atrial septal defect. Left Ventricle Normal LV size. Left ventricular systolic function is normal. The estimated ejection fraction is 60 %. No regional wall motion abnormalities noted. Right Ventricle Normal RV size. Normal systolic function. Atria Bubble contrast study negative for right to left interatrial shunt. Normal left atrium. No thrombus is detected in the left atrial appendage. Normal right atrium. Mitral Valve Mild diffuse mitral valve thickening. Fibrotic tissue at the base of the mitral valve echo dense. Tricuspid Valve Normal tricuspid valve. Aortic Valve Bioprosthetic aortic valve functioning normally. Pulmonic Valve Normal pulmonic valve. Vessels Normal aortic root. The pulmonary artery is normal size. Pericardium No pericardial effusion. ECHO/Echo Transesophageal (SERA) Interpretation Summary Normal LV size. Left ventricular systolic function is normal. The estimated ejection fraction is 60 %. Fibrotic tissue at the base of the mitral valve echo dense Bubble contrast study negative for right to left interatrial shunt. Ordering Physician: Maria T Del Castillo Performed By: Minnie Stoll RDCS
[2022-07-25 08:06] LABS: Bedside Glucose 142 mg/dL (74-106)
[2022-07-25 11:50] LABS: Bedside Glucose 142 mg/dL (74-106)
[2022-07-25] MEDS: Metoprolol Tartrate 50 MG Tablet PO (12:04)
[2022-07-25] MEDS: APIXABAN 5 MG TABLET PO (12:04)
[2022-07-25] MEDS: Aspirin 81 MG TAB.CHEW PO (12:04)
[2022-07-25] MEDS: Pantoprazole Sodium 20 MG Tablet PO (12:04)
--- NOTE | 2022-07-25 13:08 | DS.PCM_ITS ---
Providers Date of Admission: 07/23/22 Date of Discharge: 07/25/22 Primary Care Physician: Dr. Daljit Cook MD Reason For Visit: AFIB W/ RVR , CVA Diagnosis Discharge Diagnosis (1) Atrial fibrillation with rapid ventricular response: Status: Acute Code(s): I48.91 - Unspecified atrial fibrillation (2) Elevated serum creatinine: Status: Acute Code(s): R79.89 - Other specified abnormal findings of blood chemistry (3) Facial droop: Status: Acute Code(s): R29.810 - Facial weakness (4) Dysarthria: Status: Acute Code(s): R47.1 - Dysarthria and anarthria (5) Dizziness: Status: Acute Code(s): R42 - Dizziness and giddiness (6) Facial droop: Status: Acute Code(s): R29.810 - Facial weakness Medications at Discharge Home Medications atorvastatin 20 mg tablet 20 mg PO QHS 03/21/16 metformin (bulk) 100 % powder 500 tab PO QHS 03/21/16 metformin 500 mg 24 hr tablet,extended release 1,000 mg PO DAILY diabetes 03/21/16 omeprazole 10 mg capsule,delayed release 20 mg PO DAILY reflux 03/21/16 losartan 100 mg tablet 100 mg PO DAILY BP 05/01/17 apixaban 5 mg tablet (Eliquis) 5 mg PO BID anticoagulant 07/23/22 cholecalciferol (vitamin D3) 50 mcg (2,000 unit) tablet (Vitamin D3) 50 mcg PO DAILY 07/23/22 cyanocobalamin (vitamin B-12) 100 mcg tablet mcg 07/23/22 fluticasone propionate 50 mcg/actuation nasal spray,suspension intranasal 07/23/22 glipizide 5 mg tablet 5 mg PO DAILY 07/23/22 metoprolol tartrate 50 mg tablet 50 mg PO BID bp 07/23/22 multivitamin 1 tab PO DAILY health maintenance 07/23/22 omega-3 fatty acids 1,000 mg PO DAILY health maintenance 07/23/22 zinc 50 mg tablet 50 mg PO DAILY health maintenance 07/23/22 Hospital Course Operations None Procedures 2-D Echocardiogram, Transesophageal Echo and - (MRI brain/MRA head and neck) Summary of Care Provided Minutes Spent on Discharge: 36 Hospital Course: Mr. Landers is a 76-year-old male who presented to the emergency department at [facility] on 07/23/2022 with a dizziness. The patient reported he turned his head to the left to look at something his was holding and he became very dizzy. He had to lie back down and the dizziness did improve but following that he felt very unwell and weak. His symptoms resolved throughout the day but the dizziness persisted so he sought attention in the emergency department. By the time he arrived in the emergency department the dizziness had completely resolved. He has had this previously but has not pursued a diagnosis. He also had noticed previously some left facial droop and his noted some dysarthria. It sounds like this occurred about 3 weeks ago. Also approximately 3 weeks ago he was undergoing a physical and noted to be in a flutter. He was started on metoprolol and Eliquis at that time and was scheduled to have a cardioversion on 07/24/2022 for his atrial flutter/fibrillation. Unfortunately he was in the emergency department here with the above symptoms. Transfer to [place] was offered however the patient preferred to stay at this facility. It was suspected the dizziness was related to BPPV however posterior circulation stroke was not able to be ruled out and an MRI as well as an MRA of the head and neck were performed. MRI was negative for any acute infarct and also showed no previous infarct. He did have some edema i n the temporal mastoid bone which was asymptomatic. MRA of the head and neck was unremarkable. Echocardiogram was performed and demonstrated an EF of 60% with a mean aortic valve gradient of 14 mmHg, bioprosthetic aortic valve that appeared to be functioning normal was noted, mitral valve leaflets were pliable but the base of the mitral valve showed a thickened structure that was suspected to be fibrous tissue, the base of the aortic valve to the mitral valve had a 2.4 x 1.7 cm structure which was felt to be a fibrous tissue but potential cause of thromboemboli was not able to be ruled out, stage II diastolic dysfunction and his pulmonary artery pressure was 30 mmHg. Given the abnormal fibrous tissue from the aortic to the mitral valve a SERA was recommended and performed on 07/25/2022. SERA did not show anything different and showed no thromboemboli. The patient did have some intermittent RVR with heart rates really no greater than 120. He was maintained on his Eliquis and metoprolol during his hospital course. He was evaluated by teleneurology and they he most likely had BPPV and would need outpatient physical therapy. If no resolution it was recommended to consider ENT evaluation for tilt table evaluation given his history of diabetes. His symptoms remain resolved through the rest of his hospital course. He was stable for discharge on 07/25/2022. We made no medication changes at discharge. We strongly encouraged him to follow-up with his outpatient home health speech therapist to re peat schedule his outpatient cardioversion. Cardiology here did not feel comfortable doing it at the time of his admission. We have also encouraged him to follow-up with his outpatient primary care physician within next 2 weeks. I did ask him to have his primary care physician refer him to physical therapy that does vestibular rehab closer to home as he is not from the local area. He voiced understanding and stated he would do so. He was discharged home in stable condition on 07/25/2021. Discharge diagnoses: Dizziness-resolved--> suspect BPPV Facial droop-resolved--> never noted here on exam Atrial fibrillation with intermittent RVR Serum creatinine elevation-normalized Hyperlipidemia Hypertension DM-2 GERD Physical Exam Const alert, oriented x3, no apparent distress, healthy appearing and well nourished Constitutional Narrative: Overweight, older, white male sitting up in a chair at the bedside, family members at bedside, patient appears comfortable and nontoxic, patient states he is hungry as he has been n.p.o. for his SERA General Appearance: cooperative, comfortable, well kempt and well developed Orientation / Consciousness: awake, oriented to person, oriented to place and oriented to time Exam Limitations: no limitations Nutritional Appearance: overweight HEENT normocephalic, head/scalp atraumatic, moist oral mucous membranes and oropharynx normal HEENT Narrative: Mild hearing loss, Mallampati 2, no thrush Eyes PERRL, EOMs intact bilaterally and conjunctivae normal Neck no lymphadenopathy, supple and no JVD Neck Narrative: Trachea midline, no thyroid enlargement Resp normal respiratory effort, no retractions, no use of accessory muscles and clear to auscultation bilaterally Auscultation: Negative for crackles, rhonchi or wheezes Cardio regular rate, S1 normal heart sound, S2 normal heart sound, no rub, no gallops and no clicks; Negative for no murmurs Cardio Narrative: Irregular irregular rhythm, 2 out of 6 systolic murmur loudest at left upper sternal border GI normal to inspection, nondistended, normoactive bowel sounds, soft to palpation and non-tender Extremity no clubbing, cyanosis or edema Extremity Narrative: 2+ pedal pulses Skin no rashes or lesions noted, no wounds, skin turgor normal and no jaundice Neuro oriented x3, CN's II-XII intact bilaterally, moves all extremities, no focal motor deficits and no sensory deficits noted Speech: speech normal Motor Exam: strength 5/5 throughout Psych affect normal Psych Narrative: Very pleasant, appropriately interactive Weight / BMI Weight Weight: 99 kg Body Mass Index (BMI) 29.6 ABG / Lab / Microbiology Data Result Diagrams: 07/25/22 06:00 07/25/22 06:00 Laboratory: Laboratory Results - last 24 hr 07/24/22 16:30: POC Glucose 174 H 07/24/22 21:43: POC Glucose 188 H 07/25/22 06:00: WBC 5.8, RBC 4.81, Hgb 14.2, Hct 43.5, MCV 90.4, MCH 29.5, MCHC 32.6, RDW Std Deviation 44.5 H, RDW Coeff of Tammy 13.4, Plt Count 175, MPV 9.7, Immature Gran % (Auto) 0.500, Neut % (Auto) 60.5, Lymph % (Auto) 25.2, [place] % (Auto) 10.5 H, Eos % (Auto) 2.4, Baso % (Auto) 0.9, Absolute Neuts (auto) 3.5, Absolute Lymphs (auto) 1.46, Nucleated RBC % 0 07/25/22 06:00: Sodium 139, Potassium 4.4, Chloride 105, Carbon Dioxide 26.0, Anion Gap 8, BUN 23 H, Creatinine 1.19, Estim Creat Clear Calc 56.15, Est GFR (MDRD) Af Amer 76, Est GFR (MDRD) Non-Af 63, BUN/Creatinine Ratio 19.3, Glucose 153 H, Calcium 9.0, TSH 5.36 H 07/25/22 06:25: POC Glucose 142 H 07/25/22 11:23: POC Glucose 142 H D/C Instructions Discharge Diet: Low fat / Low cholesterol and 1800 Calorie Control Diet Discharge Activity: Return to Normal Activity Meaningful Use Info Meaningful Use Diagnoses (Choose all that apply): None applicable Discharge Plan Admission Admit Date/Time: 07/23/22 18:38 Primary Reason for Your Visit: Dizziness/facial droop Attending Provider: Maria T Del Castillo Primary Care Provider: Daljit Cook Consulting Providers: Shar Torres Instructions Additional Instructions / Restrictions: 1. Please contact your primary care physician for physical therapy to include vestibular rehab for BPPV 2. Please follow-up with your outpatient home health speech therapist to reschedule your cardioversion -Transesophageal echocardiogram was negative for any clot Discharge Orders/Prescriptions Prescriptions: Continued atorvastatin 20 MG tablet 20 mg PO QHS omeprazole 10 MG capsule 20 mg PO DAILY metformin 500 MG tablet,ER [place].retention 24 hr 1,000 mg PO DAILY metformin (bulk) 100 GM powder 500 tab PO QHS losartan 100 MG tablet 100 mg PO DAILY multivitamin Tablet 1 tab PO DAILY cyanocobalamin (vitamin B-12) 100 mcg Tablet metoprolol tartrate 50 mg tablet 50 mg PO BID zinc 50 mg Tablet 50 mg PO DAILY fluticasone propionate 50 mcg/actuation [place],Suspension INTRANASAL glipizide 5 mg tablet 5 mg PO DAILY omega-3 fatty acids Capsule 1,000 mg PO DAILY cholecalciferol (vitamin D3) [Vitamin D3] 50 mcg (2,000 unit) Tablet 50 mcg PO DAILY Eliquis 5 mg tablet 5 mg PO BID Label Comments: TAKE 1 TABLET BY MOUTH TWICE DAILY Referrals / Follow Up: Daljit Cook MD [Primary Care Provider] - Within 2 Weeks Disposition Disposition (needs filled in before D/C Order can be placed): Home, Self Care Charges/Coding Visit Charges Inpatient E&M: 09194 Disch Hosp >30min
== END 2022-07-25 14:17 | disposition home or self-care (01) | DRG 149 ==
LOC: ED 18:10 → PCU 19:05
PROVIDERS: Physician Assistant; Emergency Provider Emergency Medicine; PCP Family Medicine; Visit Provider Internal Medicine
DX: H81.10 Benign paroxysmal vertigo, unspecified ear (principal); E11.9 Type 2 diabetes mellitus without complications; I48.91 Unspecified atrial fibrillation; E78.00 Pure hypercholesterolemia, unspecified; I10 Essential (primary) hypertension; K21.9 Gastro-esophageal reflux disease without esophagitis; R93.1 Abnormal findings on diagnostic imaging of heart and coronary circulation; R47.1 Dysarthria and anarthria; Z79.84 Long term (current) use of oral hypoglycemic drugs; Z79.01 Long term (current) use of anticoagulants; Z79.899 Other long term (current) drug therapy; Z86.16 Personal history of COVID-19; Z86.73 Personal history of transient ischemic attack (TIA), and cerebral infarction without residual deficits; Z87.891 Personal history of nicotine dependence; Z95.3 Presence of xenogenic heart valve
CPT/HCPCS: 36415; 70450; 70544; 70547; 70551; 80048; 80053; 80061; 82962; 83036; 84443; 84484; 85025; 93005; 93306; 93312; 93320; 93325; 94762; 97161; 97166; 97802; 99283; J7040; A4216

== ENCOUNTER 2023-10-19 12:25 | Observation (INO) | payer MEDICARE, SELFPAY ==
[2023-10-19] VITALS (8 sets, daily range): BP systolic 141–163; BP diastolic 59–74; PULSE 59–69; RESP 13–17; TEMP 35.8–36.7; O2SAT 92–97; BMI 30.5; BMI 30.2
--- NOTE | 2023-10-19 13:00 | EX.ED.DYSGE1 ---
HPI History of Present Illness Chief Complaint: Dizziness Informant: patient Onset/Context/Timing Onset: Days (4) Context: Gradual Onset Timing: Intermittent and Lasts (3 to 4 hours) Quality: Black spots Location: Bilateral eyes Worsened by: Nothing Relieved by: Nothing Narrative Narrative: Patient presents with intermittent visual changes over the past 4 days. Patient states that when he wakes up in the morning he has to black spots in the center of his vision. Patient states that if he closes 1 eye he only has 1 black spot. Patient states that these last for approximately 3 to 4 hours and then resolved. Patient states his vision after that is still somewhat blurry but he is able to see things. Patient denies any headaches. Patient states nothing makes his symptoms better and nothing makes them worse. Patient states that his nifedipine was recently changed to a different knotter and he is concerned that this could be the cause of his symptoms. Patient states she tried to call his primary care physician to schedule an appointment. Patient states the nurse practitioner who works with his primary care physician told him to come to the emergency department to get studies for his carotid arteries. [facility] Medical History Atrial fibrillation Benign hypertension COVID CVA (cerebral vascular accident) Diabetes High cholesterol History of recent stroke Hyperlipidemia Hypertension Type 2 diabetes mellitus Home Medications atorvastatin 20 mg tablet 20 mg PO QHS 03/21/16 [History Last Taken 10/18/23] omeprazole 10 mg capsule,delayed release 20 mg PO DAILY reflux 03/21/16 [History Last Taken 10/19/23] losartan 100 mg tablet 100 mg PO DAILY BP 05/01/17 [History Last Taken 10/19/23] cholecalciferol (vitamin D3) 50 mcg (2,000 unit) tablet (Vitamin D3) 50 mcg PO DAILY 07/23/22 [History Last Taken 10/19/23] cyanocobalamin (vitamin B-12) 100 mcg tablet 100 mcg PO DAILY 07/23/22 [History Last Taken 10/19/23] fluticasone propionate 50 mcg/actuation nasal spray,suspension 1 spray intranasal DAILY 07/23/22 [History Last Taken 10/16/23] glipizide 5 mg tablet 5 mg PO DAILY 07/23/22 [History Last Taken 10/19/23] multivitamin 1 tab PO DAILY health maintenance 07/23/22 [History Last Taken 10/19/23] omega-3 fatty acids 1,000 mg PO DAILY health maintenance 07/23/22 [History Last Taken 10/19/23] metformin 500 mg tablet 1,000 mg PO BID 10/19/23 [History Last Taken 10/19/23] metoprolol succinate 25 mg tablet,extended release 24 hr 25 mg PO DAILY 10/19/23 [History Last Taken 10/19/23] nifedipine 60 mg tablet,extended release 24 hr 60 mg PO DAILY 10/19/23 [History Last Taken 10/19/23] Allergy/AdvReac Type Severity Reaction Status Date / Time No Known Allergies Allergy Verified 08/29/17 18:49 Surgical History Heart valve replaced Social History Smoking Status: Former smoker ROS ROS ED Constitutional Constitutional ED: Denies chills or fever(s) Eyes Eyes: Reports blurry vision and change in vision ENT ENT ED: Denies rhinorrhea or sore throat Cardiovascular Cardiovascular: Denies chest pain or palpitations Respiratory/Chest Respiratory/Chest: Denies cough or dyspnea Gastrointestinal Gastrointestinal: Reports nausea; Denies vomiting Genitourinary Genitourinary ED: Denies dysuria or hematuria Musculoskeletal Musculoskeletal: Reports neck pain; Denies back pain Integumentary Denies abscess or rash Neurologic Neurologic: Denies headache(s), paresthesias or weakness Allergic/Immunologic Allergic/Immunologic ED: Denies mouth swelling or urticaria EXAM Physical Exam Const Vital Signs: 10/19/23 12:26 10/19/23 12:41 10/19/23 14:00 Temperature 96.4 F L Temperature Source Temporal Pulse Rate 69 62 Respiratory Rate 17 17 Respiratory Effort Normal Non-Labored Blood Pressure 163/72 H 142/69 H Blood Pressure Mean 102 89 Pulse Ox 97 92 Oxygen Delivery Method Room Air 10/19/23 16:00 10/19/23 16:15 Temperature 97.5 F L Temperature Source Pulse Rate 63 60 Respiratory Rate 13 14 Respiratory Effort Blood Pressure 141/59 H 148/61 H Blood Pressure Mean 81 90 Pulse Ox 95 94 Oxygen Delivery Method Positive well nourished and well developed General Appearance ED: well developed and NAD HEENT Reports moist mucous membranes Eyes PERRL and EOMs intact bilaterally Neck supple and no JVD Resp normal respiratory effort and clear to auscultation bilaterally Cardio regular rate and regular rhythm GI non-tender and non-distended Palpation: soft Extremity normal to inspection General Extremety ED: Negative for edema or tenderness General Extremity: Negative for edema Neuro oriented x3, CN's II-XII intact bilaterally and no sensory deficits noted Sensorium / Orientation: alert Motor Exam: strength 5/5 throughout Psych mental status grossly normal MDM MDM MDM Narrative Medical decision making narrative: Differential diagnosis includes TIA, migraine headache, scotoma, electrolyte abnormality, cardiac dysrhythmia, and cardiac ischemia. CT scan of the brain will be obtained to assess for stroke and intracranial bleeding. CTA of the head and neck will be obtained to assess for large vessel occlusion, vertebral stenosis, and carotid stenosis. EKG will be obtained to assess for cardiac dysrhythmia and cardiac ischemia. CBC will be obtained to assess for leukocytosis and anemia. Basic metabolic profile will be obtained to assess for electrolyte abnormality and renal function. High-sensitivity troponin will be obtained to assess for cardiac ischemia. Lab Data Attestation: I reviewed the patient's lab results. Lab results narrative: CBC was reviewed and was within normal limits. Basic metabolic profile was reviewed. Glucose was slightly elevated at 149. The remainder is within normal limits. Labs: Laboratory Results - last 24 hr 10/19/23 13:31 WBC 5.9 RBC 4.40 L Hgb 13.5 Hct 40.1 MCV 91.1 MCH 30.7 MCHC 33.7 RDW Std Deviation 41.7 RDW Coeff of Tammy 12.6 Plt Count 173 MPV 9.7 Immature Gran % (Auto) 0.500 Neut % (Auto) 64.5 Lymph % (Auto) 23.5 [place] % (Auto) 9.0 Eos % (Auto) 1.7 Baso % (Auto) 0.8 Absolute Neuts (auto) 3.8 Absolute Lymphs (auto) 1.39 Nucleated RBC % 0 Sodium 139 Potassium 4.1 Chloride 107 Carbon Dioxide 26.0 Anion Gap 6 BUN 16 Creatinine 1.14 Estim Creat Clear Calc 63.93 Est GFR (MDRD) Af Amer 80 Est GFR (MDRD) Non-Af 66 BUN/Creatinine Ratio 14.0 Glucose 149 H Calcium 9.2 Radiography Diagnostic Testing: Clinical Impression(s) from Imaging Studies Head/Neck CTA 10/19/23 13:08 IMPRESSION: Calcified plaques at the origin of the right internal carotid artery causing between 50 and 69% stenosis. Calcified plaques at the origin of the left internal carotid artery causing less than 50% narrowing. Electronically Signed: Yaron Carbajal MD at 14:28 EDT , CTA of the head and neck was obtained. There is no acute infarct noted. There is no intracranial bleeding noted. There are calcified plaques at the origin of the right internal carotid artery causing between 50 and 69% stenosis. There are plaques in the origin of the left internal carotid artery causing less than 50% narrowing. This was interpreted by the radiologist and was also independently reviewed by myself. EKG Initial EKG: Attestation: I personally reviewed and interpreted this EKG as follows: Interpretation: Sinus Rhythm, No Acute Injury Pattern and RBBB Comments: EKG was obtained. On my independent interpretation, it shows a normal sinus rhythm with a rate of 65. UT interval was slightly prolonged at 208 ms. QRS interval was slightly prolonged at 142 ms. QTc interval was normal at 453 ms. There is a right bundle branch block pattern noted. There are nonspecific ST-T wave changes noted. Prior EKG tracings: available for review Prior: Unchanged (07/23/2022) Management Discussion w/another healthcare provider: Hospitalist and Extension Course Counselor Treatment and Re-Evaluation :: Patient was given IV fluids. Patient is resting comfortably on reevaluation. Case was discussed with the hospitalist. He recommended discussing the case with ophthalmology as he thinks this could be macular in etiology. Case was discussed with Dr. Squires from ophthalmology. He stated that he does not think it is ophthalmological in etiology. He stated that if it was ophthomalogical, it would most likely be constant and not improved after 4 hours in the morning. He stated that he could follow-up with him as an outpatient next week. Case was discussed with the hospitalist again. He will admit the patient to his service for observation. Patient and family understood and were agreeable with the plan. All questions were answered. Discharge Plan Triage Chief Complaint: Dizziness ED Provider: Schwiger,Shar Dx/Rx/DC Orders Clinical Impression: Change in vision, TIA (transient ischemic attack) Prescriptions: No Action atorvastatin 20 MG tablet 20 mg PO QHS omeprazole 10 MG capsule 20 mg PO DAILY losartan 100 MG tablet 100 mg PO DAILY multivitamin Tablet 1 tab PO DAILY cyanocobalamin (vitamin B-12) 100 mcg Tablet 100 mcg PO DAILY fluticasone propionate 50 mcg/actuation [place],Suspension 1 spray INTRANASAL DAILY glipizide 5 mg tablet 5 mg PO DAILY omega-3 fatty acids Capsule 1,000 mg PO DAILY cholecalciferol (vitamin D3) [Vitamin D3] 50 mcg (2,000 unit) Tablet 50 mcg PO DAILY metformin 500 mg tablet 1,000 mg PO BID nifedipine 60 mg tablet extended release 24hr 60 mg PO DAILY metoprolol succinate 25 mg tablet extended release 24 hr 25 mg PO DAILY Primary Care Provider: Daljit Cook Referrals: Daljit Cook MD [Primary Care Provider] - Disposition Disposition: Acute Care Hospital [facility]
--- NOTE | 2023-10-19 13:08 | CT_ITS ---
STUDY: CTA HEAD AND NECK WITH CONTRAST REASON FOR EXAM: Male, 78 years old. TIA. Visual changes. RADIATION DOSAGE (If Supplied By Facility): CTDIvol = ( 31.11 ) mGy, DLP = ( 1665.89 ) mGycm TECHNIQUE: CT angiography was performed with a multi-detector CT scanner. Data acquisition was obtained from the skull base through the vertex following intravenous administration of IV 100mL [id number]-[id number]. MIP images were reconstructed from the axial data set. Post-processing of the angiographic images was performed, with multiplanar reformation and 3D reconstruction. Individualized dose optimization techniques were used for this CT. COMPARISON: No relevant priors. FINDINGS: Normal bilateral petrous carotid arteries. There is calcified plaque formation of the right cavernous carotid artery, without a cross-sectional luminal stenosis. There is calcified plaque formation of the left cavernous carotid artery, without a cross-sectional luminal stenosis. Normal right A1 segments of the anterior cerebral artery. Normal left A1 segments of the anterior cerebral artery. Normal intact anterior communicating artery (ACOM). Normal bilateral A2 segments of the anterior cerebral arteries. Normal right M1 and M2 segments of the middle cerebral arteries, with a normal M1 bifurcation. Normal left M1 and M2 segments of the middle cerebral arteries, with a normal M1 bifurcation. Normal right posterior communicating artery (PCOM). Normal left posterior communicating artery (PCOM). Normal bilateral vertebral arteries. Normal basilar artery with a normal basilar bifurcation. The visualized bilateral superior cerebellar (SCA) arteries are normal. Normal bilateral P1, P2 and visualized P3 segments of the posterior cerebral arteries. There is no demonstrated aneurysm of the [place] of [place]. There is no demonstrated abnormality of the visualized brain. There is an 8.3 mm x 5.4 mm cystic nodule in the upper aspect of the left lobe of the thyroid. AORTIC ARCH: There is atherosclerotic calcific plaque formation of the aortic arch and great vessels arising from the aortic arch, without a hemodynamically significant stenosis. There is a normal origin of the brachiocephalic, left common carotid, and left subclavian arteries. Atherosclerotic plaque formation at the origin of the left common carotid artery and left subclavian artery. RIGHT CAROTID ARTERIES: Normal right common carotid artery (CCA). Normal right common carotid bulb. There is moderate atherosclerotic plaque formation of the origin of the right internal carotid artery with an estimated stenosis of 50-69% stenosis. Normal visualized cervical portion of the right internal carotid artery. Normal origin of the right external carotid artery (ECA). LEFT CAROTID ARTERIES: Normal left common carotid artery (CCA). Normal left common carotid bulb. There is mild atherosclerotic plaque formation of the origin of the left internal carotid artery with less than 50% cross sectional diameter stenosis. Normal visualized cervical portion of the left internal carotid artery. Normal origin of the left external carotid artery (ECA). VERTEBRAL ARTERIES: Normal bilateral vertebral arteries. CT/CTA Head AND Neck W/ Contrast IMPRESSION: Calcified plaques at the origin of the right internal carotid artery causing between 50 and 69% stenosis. Calcified plaques at the origin of the left internal carotid artery causing less than 50% narrowing. Electronically Signed: Yaron Carbajal MD at 14:28 EDT ,
--- NOTE | 2023-10-19 13:08 | EKG12_ITS ---
Test Reason : Blood Pressure : / mmHG Vent. Rate : 065 BPM Atrial Rate : 065 BPM P-R Int : 208 ms QRS Dur : 142 ms QT Int : 436 ms P-R-T Axes : 038 220 045 degrees QTc Int : 453 ms Normal sinus rhythm Right bundle branch block Abnormal ECG When compared with ECG of 23-JUL-2022 16:28, Sinus rhythm has replaced Atrial fibrillation Vent. rate has decreased BY 33 BPM QT has shortened Confirmed by IRVING HASTINGS, YOANA ([id number]), editor in chief newspaper ANDREW LAMA ([id number]) on 10/23/2023 6:41:27 AM Referred By: Confirmed By:YOANA VILLATORO MD
[2023-10-19] MEDS: 0.9% Normal Saline (1000mL) 1,000 ML 1000 ML IV (13:33)
[2023-10-19 13:40] LABS: Absolute Lymphocyte Count 1.39 X10^3/uL (0.83-4.51); Absolute Neutrophil Count 3.8 X10^3/uL (2.0-7.7); Basophil# 0.05 X10^3/uL; Basophil% 0.8 % (0-1); Eosinophils% 1.7 % (0-5); Hematocrit 40.1 % (40-54); Hemoglobin 13.5 g/dL (13.0-16.5); Lymphocyte # 1.39 X10^3/ul (0.83-4.51); Lymphocyte % 23.5 % (19-41); Mean Corp Hgb Conc 33.7 g/dL (32-36); Mean Corpuscular Hgb 30.7 pg (27.0-32.0); Mean Corpuscular Volume 91.1 fL (80-94); Mean Platelet Vol. 9.7 fl (6.2-12.0); Monocyte# 0.53 X10^3/uL; NRBC Flagged by Analyzer 0 % (0-5); Neutrophil # 3.82 X10^3/uL (2.7-7.7); Neutrophil % 64.5 % (47-70); Platelet Count 173 K/mm3 (150-450); RBC Distribution Width CV 12.6 % (11.6-14.6); RBC Distribution Width SD 41.7 fl (35.1-43.9); White Blood Count 5.9 K/mm3 (4.4-11.0)
[2023-10-19 13:53] LABS: Anion Gap 6 (5-15); BUN 16 mg/dL (7-18); Calcium,Total 9.2 mg/dL (8.5-10.1); Chloride 107 mmol/L (98-107); Creatinine, Serum 1.14 mg/dL (0.70-1.30); EST Glomerular Filtration Rate 66 mL/min (>60); Est Glom Filt Rate - Afr Amer 80 mL/min (>60); Estimated Creatinine Clearance 63.93 ml/min; Glucose 149 mg/dL (74-106); Potassium 4.1 mmol/L (3.5-5.1); Sodium Level 139 mmol/L (136-145)
--- NOTE | 2023-10-19 17:47 | HP.PCM.HOS_ITS ---
HPI - General General Date of Admission: 10/19/23 Date of Service: 10/19/23 Chief Complaint: Vision changes HPI Narrative ARAVIND GRIER, is a 78 M who presents with visual changes. Over the past 4 mornings, patient awakes and sees black spots in his visual field. These are black spots centrally located and persist for about 2 hours and resolve. Does not change with his position such as when he sits up or stands up. When he is lying down. He states he was still seeing them if you would cover 1 eye or the other, so it. It affected both of his eyes. He denies any headache with this he did have some transient dizziness with one of the spells and noted that his blood sugar was low in the 1-teens. He states that his blood sugar normally is in the 130s. Today had an episode like this past but that was much shorter and resolved spontaneously. Dr. Squires was contacted through the emergency room. For any emergency room physician that it did not sound primary ophthalmologic and recommended further neurologic evaluation. Did state that he would follow-up with the patient as outpatient next week. [facility] Medical History Atrial fibrillation Benign hypertension COVID CVA (cerebral vascular accident) Diabetes High cholesterol History of recent stroke Hyperlipidemia Hypertension Type 2 diabetes mellitus Home Medications atorvastatin 20 mg tablet 20 mg PO QHS 03/21/16 [History Last Taken 10/18/23] omeprazole 10 mg capsule,delayed release 20 mg PO DAILY reflux 03/21/16 [History Last Taken 10/19/23] losartan 100 mg tablet 100 mg PO DAILY BP 05/01/17 [History Last Taken 10/19/23] cholecalciferol (vitamin D3) 50 mcg (2,000 unit) tablet (Vitamin D3) 50 mcg PO DAILY 07/23/22 [History Last Taken 10/19/23] cyanocobalamin (vitamin B-12) 100 mcg tablet 100 mcg PO DAILY 07/23/22 [History Last Taken 10/19/23] fluticasone propionate 50 mcg/actuation nasal spray,suspension 1 spray intranasal DAILY 07/23/22 [History Last Taken 10/16/23] glipizide 5 mg tablet 5 mg PO DAILY 07/23/22 [History Last Taken 10/19/23] multivitamin 1 tab PO DAILY health maintenance 07/23/22 [History Last Taken 10/19/23] omega-3 fatty acids 1,000 mg PO DAILY health maintenance 07/23/22 [History Last Taken 10/19/23] metformin 500 mg tablet 1,000 mg PO BID 10/19/23 [History Last Taken 10/19/23] metoprolol succinate 25 mg tablet,extended release 24 hr 25 mg PO DAILY 10/19/23 [History Last Taken 10/19/23] nifedipine 60 mg tablet,extended release 24 hr 60 mg PO DAILY 10/19/23 [History Last Taken 10/19/23] Allergy/AdvReac Type Severity Reaction Status Date / Time No Known Allergies Allergy Verified 08/29/17 18:49 Surgical History Heart valve replaced Social History Smoking Status: Former smoker ROS ROS Narrative All review of systems were negative except as mentioned above in the history of present illness and the other review of systems. Vital Signs Vital Signs Vital Signs: 10/19/23 12:26 10/19/23 12:41 10/19/23 14:00 Temperature 35.8 C L Temperature Source Temporal Pulse Rate 69 62 Respiratory Rate 17 17 Respiratory Effort Normal Non-Labored Blood Pressure 163/72 H 142/69 H Blood Pressure Mean 102 89 Pulse Ox 97 92 Oxygen Delivery Method Room Air 10/19/23 16:00 10/19/23 16:15 10/19/23 17:30 Temperature 36.4 C L Temperature Source Pulse Rate 63 60 60 Respiratory Rate 13 14 16 Respiratory Effort Blood Pressure 141/59 H 148/61 H 147/74 H Blood Pressure Mean 81 90 92 Pulse Ox 95 94 95 Oxygen Delivery Method Weight Weight: 102.24 kg Body Mass Index (BMI) 30.5 Physical Exam Const alert, no apparent distress, average body habitus and healthy appearing General Appearance: cooperative HEENT normocephalic, head/scalp atraumatic, hearing grossly normal bilaterally, moist oral mucous membranes, oropharynx normal and dentition normal Eyes PERRL and EOMs intact bilaterally Eyes Narrative: Attempted to look at the patient's fundus but was not able to adequately look at it at bedside with patient is nondilated. Monitoring lites back on, he noted that he solid spots again resolved movements. He stated that when the ED physician did that as well he saw spots as well. Neck no lymphadenopathy and no carotid bruits Resp normal respiratory effort, no retractions, no use of accessory muscles and clear to auscultation bilaterally Cardio regular rate, regular rhythm, S1 normal heart sound and S2 normal heart sound GI normal to inspection, nondistended, normoactive bowel sounds, soft to palpation, non-tender and non-distended Extremity normal to inspection Neuro oriented x3 and moves all extremities Sensorium / Orientation: awake and alert Speech: speech normal Motor Exam: strength 5/5 throughout Psych affect normal Results Lab / Micro Data Attestation: I reviewed the patient's lab results. 10/19/23 13:31 10/19/23 13:31 Labs: Laboratory Results - last 24 hr 10/19/23 13:31: WBC 5.9, RBC 4.40 L, Hgb 13.5, Hct 40.1, MCV 91.1, MCH 30.7, MCHC 33.7, RDW Std Deviation 41.7, RDW Coeff of Tammy 12.6, Plt Count 173, MPV 9.7, Immature Gran % (Auto) 0.500, Neut % (Auto) 64.5, Lymph % (Auto) 23.5, Appling % (Auto) 9.0, Eos % (Auto) 1.7, Baso % (Auto) 0.8, Absolute Neuts (auto) 3.8, Absolute Lymphs (auto) 1.39, Nucleated RBC % 0, Sodium 139, Potassium 4.1, Chloride 107, Carbon Dioxide 26.0, Anion Gap 6, BUN 16, Creatinine 1.14, Estim Creat Clear Calc 63.93, Est GFR (MDRD) Af Amer 80, Est GFR (MDRD) Non-Af 66, BUN/Creatinine Ratio 14.0, Glucose 149 H, Calcium 9.2 EKG Initial EKG: Attestation: I personally reviewed and interpreted this EKG as follows: Prior EKG tracings: available for review EKG Rhythm Intrepretation: Sinus Rhythm (Right bundle branch block) Imaging Radiology Impression Head/Neck CTA 10/19/23 13:08 IMPRESSION: Calcified plaques at the origin of the right internal carotid artery causing between 50 and 69% stenosis. Calcified plaques at the origin of the left internal carotid artery causing less than 50% narrowing. Electronically Signed: Yaron Carbajal MD at 14:28 EDT , Assessment & Plan Assessment/Plan (1) Change in vision: PLAN: Plan Visual changes * Patient seeing black spots when he wakes up but also when he is lights turned off and then on. * Concern could be primary ophthalmologic versus TIA/stroke. * Patient will undergo stroke workup to further evaluate this. That included MRI of the brain and echocardiogram. Will have him see physical and occupational therapy. * Check a fasting lipid panel. * Aspirin Dr. Hernadez was contacted through the emergency room * Stated that he would follow-up with the patient as outpatient next week. * Consult neurology Carotid stenosis * Patient noted to have 50 to 69% stenosis right ICA * . Will check a duplex * Follow-up with ophthalmology Chronic conditions * Diabetes mellitus type 2: Continue with glipizide. Hold metformin given the contrast he received. Sliding scale insulin. Patient noted that he had a low blood sugar that coincided with dizziness. The sugar was measuring in the 1-teens. Therefore, I do not feel that that was a contributing factor to his dizziness nor any visual changes. * Hypertension: stable. continue with amlodipine, metoprolol, losartan VTE prophylaxis: Not indicated given observation status. CODE STATUS: Addressed with the patient. Patient wished to be full code. Charges/Coding Visit Charges Inpatient E&M: 25951 Init Hosp L3
--- NOTE | 2023-10-19 18:10 | MRI_ITS ---
STUDY: MRI BRAIN WITHOUT CONTRAST REASON FOR EXAM: Male, 78 years old. visual changes. TECHNIQUE: Standardized multiplanar fat and water weighted pulse sequences were obtained. COMPARISON: CTA brain October 19, 2023. MR brain July 24, 2022. FINDINGS: There is moderate cerebral atrophy with widening of the extra-axial spaces and ventricular dilatation. Normal white matter tracts of the supratentorial brain. There is no evidence for recent intracranial ischemia or other cause of cytotoxic edema on diffusion weighted imaging (DWI). Normal bilateral basal ganglia. Normal thalami. There is no extra-axial fluid accumulation. Normal flow voids within the major intracranial circulation suggesting patency by spin echo criteria. Normal sella turcica, pituitary gland, infundibular stalk, optic chiasm and hypothalamus. Normal tectal plate and pineal gland. Normal midbrain, coby and medulla. Normal cerebellum. Normal basal cisterns. Right greater than left mastoid effusions. Normal bilateral internal auditory canals. No demonstrated orbital abnormality, within the constraints of a routine brain study. Normal visualized paranasal sinuses. Normal calvarium and skull base. Normal visualized soft tissue structures. Normal visualized upper cervical spine. MRI/Brain without Contrast IMPRESSION: No acute disease. Mastoid effusions. Electronically Signed: Uvaldo Helm MD at 20:34 EDT ,
--- NOTE | 2023-10-19 18:10 | ECHOD_ITS ---
Reason For Study: TIA/CVA Procedure This was a 2D Doppler, Color Flow transthoracic echocardiogram. Exam performed portable in patient room. Left Ventricle Normal LV size. Mild concentric left ventricular hypertrophy. Left ventricular systolic function is normal. The estimated ejection fraction is 65 %. No regional wall motion abnormalities noted. Right Ventricle Normal RV size. Normal systolic function. Atria Normal left atrium. Normal right atrium. Mitral Valve Moderate focal mitral valve thickening. Tricuspid Valve Normal tricuspid valve. Aortic Valve The base of the bioprosthetic aortic valve has a 2.2 to by 3.4 cm structure which is likely fibrous tissue. This was present on a previous echocardiogram from July 2022. It was evaluated with a SERA and it appears to be at the junction of the base of the aortic valve and the mitral valve. Peak aortic valve gradient 34 mmHg. Mean aortic valve gradient 17 mmHg. Bioprosthetic aortic valve. Pulmonic Valve The pulmonic valve is not well visualized. Great Vessels Normal aortic root. The pulmonary artery is normal size. Inferior vena cava collapse with respiration. Pericardium/Pleural No pericardial effusion. MMode/2D Measurements & Calculations LVIDd: 4.1 cm IVSd: 1.3 cm LVOT diam: 2.0 cm LVIDs: 2.7 cm LVPWd: 1.3 cm LVOT area: 3.3 cm2 FS: 34.3 % LAV(MOD-bp): 69.7 ml LVAd ap4: 32.3 cm2 SV(MOD-sp4): 72.2 ml LAV(MOD-bp) Indexed: 31.3 ml/m2 LVLd ap4: 8.7 cm LAV(MOD-sp2): 72.2 ml EDV(MOD-sp4): 97.7 ml LAV(MOD-sp4): 64.9 ml EDV(sp4-el): 101.8 ml LVAs ap4: 14.4 cm2 LVLs ap4: 7.0 cm ESV(MOD-sp4): 25.5 ml ESV(sp4-el): 25.3 ml EF(MOD-sp4): 73.9 % EF(sp4-el): 75.2 % SV(sp4-el): 76.5 ml LA A4 area: 21.6 cm2 RA A4 area: 17.6 cm2 TAPSE: 1.3 cm Time Measurements MV dec time: 0.25 sec Doppler Measurements & Calculations MV E max moi: 104.5 cm/sec Lat Peak E' Mio: 6.8 cm/sec Med Peak E' Mio: 4.9 cm/sec MV A max mio: 99.9 cm/sec E/E' lat: 15.4 E/E' med: 21.4 MV E/A: 1.0 MV V2 max: 112.3 cm/sec MV dec slope: 423.8 cm/sec2 Ao V2 max: 291.5 cm/sec MV max P.0 mmHg Ao max P.0 mmHg MV V2 mean: 64.1 cm/sec Ao V2 mean: 191.9 cm/sec MV mean P.0 mmHg Ao mean P.3 mmHg MV V2 VTI: 45.4 cm Ao V2 VTI: 65.4 cm MVA(VTI): 3.1 cm2 AV (velocity ratio): 0.65 ESTHELA(I,D): 2.1 cm2 ESTHELA(V,D): 1.9 cm2 LV V1 max: 165.5 cm/sec SV(LVOT): 139.3 ml PA V2 max: 77.7 cm/sec LV V1 max P.0 mmHg PA V2 mean: 55.1 cm/sec LV V1 mean P.8 mmHg LV V1 mean: 124.7 cm/sec LV V1 VTI: 42.4 cm ECHO/Echo Complete Interpretation Summary The base of the bioprosthetic aortic valve has a 2.2 to by 3.4 cm structure whi ch is likely fibrous tissue. This was present on a previous echocardiogram from July 2022. It wa s evaluated with a SERA and it appears to be at the junction of the base of the aortic valve and th e mitral valve. Normal LV size. Left ventricular systolic function is normal. The estimated ejection fraction is 65 %. Bioprosthetic aortic valve. Mean aortic valve gradient 17 mmHg. Compared to the previous the gradients are mildly increased. Ordering Physician: Shar Torres Referring Physician: LAURA MATT Performed By: Bel Hunt RCS
[2023-10-19] MEDS: Aspirin 81 MG TAB.CHEW PO (20:53)
[2023-10-19] MEDS: Atorvastatin Calcium 20 MG Tablet PO (20:53)
[2023-10-19] MEDS: 0.9% Saline Lock 10 ML Syringe IV (20:54)
[2023-10-19 21:22] LABS: Bedside Glucose 283 mg/dL (74-106)
[2023-10-20 02:45] VITALS: BP 138/66; PULSE 55; RESP 16; TEMP 36.5; O2SAT 98
[2023-10-20 04:45] LABS: Cholesterol 145 mg/dL (200); High Density Lipoprotein 53 mg/dL; Triglycerides 167 mg/dL; Very Low Density Lipoprotein 33 mg/dL (5-40)
[2023-10-20 07:12] VITALS: O2SAT 97
[2023-10-20 07:17] LABS: Bedside Glucose 142 mg/dL (74-106)
[2023-10-20 08:45] VITALS: BP 155/70; PULSE 64; RESP 18; TEMP 36.7; O2SAT 93
--- NOTE | 2023-10-20 09:35 | STROKE.CONS ---
Assessment and Plan: Stroke Assessment/Plan ARAVIND GRIER is a 78 M with a history of AFib, HTN, CVA, DM2, HLD who presents with transient visual change involving both eyes occurring daily for the last few days. Not a TNK or thrombectomy candidate. Neurological examination shows Intact examination. Neuroimaging shows MRI: No acute stroke, CTA: R ICA moderate stenosis (50-69%), LDL:59. Suspect Ocular causes vs TIA vs other causes. Plan Continue ASA Continue statin Carotid duplex, ECHO pending Aggressive control of stroke risk factors: DM2, HTN, HLD. Thanks for the consultation. I spent 70 minutes in evaluation and management of this patient. HPI Consult Data Date of Consult: 10/20/23 HPI Narrative HPI Narrative: ARAVIND GRIER, is a 78 M with a history of AFib, HTN, CVA, DM2, HLD who presents with visual changes. Over the past 5 mornings, patient awakes and sees [place] in the center of his visual field in both eyes. These are [place] centrally located, persist for few hours and resolve. It is persistent regardless of the direction he looks, or position. It is present in both eyes and persist if he covers one eye. It does not change with his position such as when he sits up or stands up. It affects the center field of both of his eyes. He denies any headache, dizziness, slurred speech, facial droop, weakness or numbness. He recently changes the supplier of his Nifedipine. He had Afib in past and had ablation. He is currently not on ASA. [facility] Medical History Atrial fibrillation Benign hypertension COVID CVA (cerebral vascular accident) Diabetes High cholesterol History of recent stroke Hyperlipidemia Hypertension Type 2 diabetes mellitus Home Medications atorvastatin 20 mg tablet 20 mg PO QHS cholesterol 03/21/16 [History Last Taken 10/18/23] omeprazole 10 mg capsule,delayed release 20 mg PO DAILY reflux 03/21/16 [History Last Taken 10/19/23] losartan 100 mg tablet 100 mg PO DAILY BP 05/01/17 [History Last Taken 10/19/23] cholecalciferol (vitamin D3) 50 mcg (2,000 unit) tablet (Vitamin D3) 50 mcg PO DAILY suppliment 07/23/22 [History Last Taken 10/19/23] cyanocobalamin (vitamin B-12) 100 mcg tablet 100 mcg PO DAILY suppliment 07/23/22 [History Last Taken 10/19/23] fluticasone propionate 50 mcg/actuation nasal spray,suspension 1 spray intranasal DAILY sinus 07/23/22 [History Last Taken 10/16/23] glipizide 5 mg tablet 5 mg PO DAILY diabetes 07/23/22 [History Last Taken 10/19/23] multivitamin 1 tab PO DAILY health maintenance 07/23/22 [History Last Taken 10/19/23] omega-3 fatty acids 1,000 mg PO DAILY health maintenance 07/23/22 [History Last Taken 10/19/23] metformin 500 mg tablet 1,000 mg PO BID diabetes 10/19/23 [History Last Taken 10/19/23] metoprolol succinate 25 mg tablet,extended release 24 hr 25 mg PO DAILY heart 10/19/23 [History Last Taken 10/19/23] nifedipine 60 mg tablet,extended release 24 hr 60 mg PO DAILY bp/heart 10/19/23 [History Last Taken 10/19/23] Allergy/AdvReac Type Severity Reaction Status Date / Time No Known Allergies Allergy Verified 08/29/17 18:49 Surgical History Heart valve replaced Social History (Updated 10/19/23 @ 18:35 by Brianne Plascencia) Smoking Status: Former smoker Vital Signs Vital Signs Vital Signs: 10/19/23 12:26 10/19/23 12:41 10/19/23 14:00 Temperature 96.4 F L Temperature Source Temporal Pulse Rate 69 62 Pulse Strength Respiratory Rate 17 17 Respiratory Effort Normal Non-Labored Respiratory Depth Respiratory Pattern Blood Pressure 163/72 H 142/69 H Blood Pressure Mean 102 89 Blood Pressure Source Blood Pressure Position Blood Pressure Location Pulse Ox 97 92 Oxygen Delivery Method Room Air 10/19/23 16:00 10/19/23 16:15 10/19/23 17:30 Temperature 97.5 F L Temperature Source Pulse Rate 63 60 60 Pulse Strength Respiratory Rate 13 14 16 Respiratory Effort Respiratory Depth Respiratory Pattern Blood Pressure 141/59 H 148/61 H 147/74 H Blood Pressure Mean 81 90 92 Blood Pressure Source Blood Pressure Position Blood Pressure Location Pulse Ox 95 94 95 Oxygen Delivery Method 10/19/23 18:40 05/03/24 20:14 10/19/23 20:45 Temperature 98.1 F 98.1 F Temperature Source Oral Oral Pulse Rate 65 59 L Pulse Strength Respiratory Rate 14 16 Respiratory Effort Normal Non-Labored Respiratory Depth Normal Respiratory Pattern Normal Blood Pressure 155/68 H 144/66 H Blood Pressure Mean 97 92 Blood Pressure Source Monitor Monitor Blood Pressure Position Semi-Fowlers Sitting Blood Pressure Location Left Arm Right Arm Pulse Ox 96 97 Oxygen Delivery Method Room Air Room Air Room Air 10/20/23 02:45 10/20/23 03:41 10/19/23 19:28 Temperature 97.7 F L Temperature Source Oral Pulse Rate 55 L Pulse Strength Respiratory Rate 16 Respiratory Effort Normal Non-Labored Respiratory Depth Normal Respiratory Pattern Normal Blood Pressure 138/66 H Blood Pressure Mean 90 Blood Pressure Source Monitor Blood Pressure Position Supine Blood Pressure Location Right Arm Pulse Ox 98 97 Oxygen Delivery Method Room Air Room Air Room Air 10/20/23 07:24 10/20/23 07:29 10/20/23 07:12 Temperature Temperature Source Pulse Rate Pulse Strength Normal (2+) Respiratory Rate Respiratory Effort Normal Non-Labored Respiratory Depth Normal Respiratory Pattern Normal Blood Pressure Blood Pressure Mean Blood Pressure Source Blood Pressure Position Blood Pressure Location Pulse Ox 97 Oxygen Delivery Method Room Air Room Air 10/20/23 08:45 Temperature 98.0 F Temperature Source Temporal Pulse Rate 64 Pulse Strength Respiratory Rate 18 Respiratory Effort Respiratory Depth Respiratory Pattern Blood Pressure 155/70 H Blood Pressure Mean 98 Blood Pressure Source Monitor Blood Pressure Position Semi-Fowlers Blood Pressure Location Left Arm Pulse Ox 93 Oxygen Delivery Method Room Air Weight Weight: 101 kg Body Mass Index (BMI) 30.2 NIHSS NIHSS Nursing Documentation NIHSS Nursing Documentation: NIH Stroke Scale Start: 10/19/23 12:40 Freq: Status: Discharge Protocol: Activity Type Activity Date Activity User E-sign Co-sign Detail Recorded Client Recorded Date Recorded By Document 10/19/23 12:41 DK Desktop 10/19/23 12:41 DK 10/19/23 12:41 NIH Stroke Scale [NIHSS] A score of 0 is normal or asymptomatic . Total possible score is 42. Inpatient: RN or Physician to activate a stroke alert for onset of new stroke symptoms or with NIHSS increase >/= 3 points. Following change in neurological status, NIHSS will be performed per physician order or more frequently PRN. -1a. Level of Consciousness Alert; keenly responsive -1b. LOC Questions Answers BOTH questions correctly. -1c. LOC Commands Performs both tasks correctly . -2. Best Gaze Normal -3. Visual No visual loss -4. Facial Palsy Normal symmetrical movements -5a. Left Arm No drift; arm holds 90 (or 45 ) degrees for full 10 seconds -5b. Right Arm No drift; arm holds 90 (or 45 ) degrees for full 10 seconds -6a. Left Leg No drift; leg holds 30-degree position for full 5 seconds -6b. Right Leg No drift; leg holds 30-degree position for full 5 seconds -7. Limb Ataxia Absent -8. Sensory Normal; no sensory loss -9. Best Language No aphasia; normal -10. Dysarthria Normal -11. Extinction and Inattention No abnormality -Total 0 Query Text:A score of 0 is normal or asymptomatic. Total possible score is 42 . ED: Notify Physician for NIHSS increase by > / = 3 points. Inpatient: RN or Physician to activate a stroke alert for NIHSS increase of > / = 3 points. NIHSS: Ischemic Stroke/TIA Start: 10/19/23 18:10 Text: For PCU Patients: NIH and Neuro Check every 4 Status: Complete hours, PRN and with change in RN caregiver. Freq: [id number] Protocol: Activity Type Activity Date Activity User E-sign Co-sign Detail Recorded Client Recorded Date Recorded By Document 10/19/23 20:45 PF Desktop 10/19/23 20:50 PF 10/19/23 20:45 -1a. Level of Consciousness Alert; keenly responsive -1b. LOC Questions Answers BOTH questions correctly. -1c. LOC Commands Performs both tasks correctly . -2. Best Gaze Normal -3. Visual No visual loss -4. Facial Palsy Minor paralysis (flattened nasolabial fold , asymmetry on smiling) -5a. Left Arm No drift; arm holds 90 (or 45 ) degrees for full 10 seconds -5b. Right Arm No drift; arm holds 90 (or 45 ) degrees for full 10 seconds -6a. Left Leg No drift; leg holds 30-degree position for full 5 seconds -6b. Right Leg No drift; leg holds 30-degree position for full 5 seconds -7. Limb Ataxia Absent -8. Sensory Normal; no sensory loss -9. Best Language No aphasia; normal -10. Dysarthria Normal -11. Extinction and Inattention No abnormality -Total 1 Query Text:A score of 0 is normal or asymptomatic. Total possible score is 42 . ED: Notify Physician for NIHSS increase by > / = 3 points. Inpatient: RN or Physician to activate a stroke alert for NIHSS increase of > / = 3 points. Coma Scale [Assess] -Eye Opening Spontaneous -Motor Obeys Commands -Verbal Oriented [Total] -Coma Scale Total 15 NIHSS 1a. Level of Consciousness: Alert; keenly responsive 1b. LOC Questions: Answers BOTH questions correctly. 1c. LOC Commands: Performs both tasks correctly. 2. Best Gaze: Normal 3. Visual: No visual loss 4. Facial Palsy: Normal symmetrical movements 5a. Left Arm: No drift; arm holds 90 (or 45) degrees for full 10 seconds 5b. Right Arm: No drift; arm holds 90 (or 45) degrees for full 10 seconds 6a. Left Leg: No drift; leg holds 30-degree position for full 5 seconds 6b. Right Leg: No drift; leg holds 30-degree position for full 5 seconds 7. Limb Ataxia: Absent 8. Sensory: Normal; no sensory loss 9. Best Language: No aphasia; normal 10. Dysarthria: Normal 11. Extinction and Inattention: No abnormality Total: 0 Physical Exam Const alert, oriented x3 and no apparent distress HEENT normocephalic Resp normal respiratory effort Neuro Neuro Narrative: Awake, alert, oriented X3 Speech fluent Cranial nerves intact Motor: Moves all extremities equally Sensation: Intact No ataxia Psych mental status grossly normal, thought process normal, cooperative, affect normal and speech normal Lab / Micro Data 10/19/23 13:31 10/19/23 13:31 Labs: Laboratory Results - last 24 hr 10/19/23 13:31: WBC 5.9, RBC 4.40 L, Hgb 13.5, Hct 40.1, MCV 91.1, MCH 30.7, MCHC 33.7, RDW Std Deviation 41.7, RDW Coeff of Tammy 12.6, Plt Count 173, MPV 9.7, Immature Gran % (Auto) 0.500, Neut % (Auto) 64.5, Lymph % (Auto) 23.5, Lamar % (Auto) 9.0, Eos % (Auto) 1.7, Baso % (Auto) 0.8, Absolute Neuts (auto) 3.8, Absolute Lymphs (auto) 1.39, Nucleated RBC % 0, Sodium 139, Potassium 4.1, Chloride 107, Carbon Dioxide 26.0, Anion Gap 6, BUN 16, Creatinine 1.14, Estim Creat Clear Calc 63.93, Est GFR (MDRD) Af Amer 80, Est GFR (MDRD) Non-Af 66, BUN/Creatinine Ratio 14.0, Glucose 149 H, Calcium 9.2 10/19/23 20:52: POC Glucose 283 H 10/20/23 04:07: Triglycerides 167, Cholesterol 145, LDL Cholesterol 59, VLDL Cholesterol 33, HDL Cholesterol 53 10/20/23 06:58: POC Glucose 142 H Imaging Radiology Impression Head/Neck CTA 10/19/23 13:08 IMPRESSION: Calcified plaques at the origin of the right internal carotid artery causing between 50 and 69% stenosis. Calcified plaques at the origin of the left internal carotid artery causing less than 50% narrowing. Electronically Signed: Yaron Carbajal MD at 14:28 EDT , Brain MRI 10/19/23 18:10 IMPRESSION: No acute disease. Mastoid effusions. Electronically Signed: Uvaldo Helm MD at 20:34 EDT , Active Medications Active Medications Active Medications: Current Medications Generic Name Dose Route Start Last Admin Trade Name Freq PRN Reason Stop Dose Admin Acetaminophen 650 mg 10/19/23 18:10 Acetaminophen 325 Mg Tablet PO Q6H PRN PRN Pain 1-10 Or Fever>100.7 Aspirin 81 mg 10/20/23 08:00 Aspirin 81 Mg Tab.Chew PO BREAKFAST INGE Atorvastatin Calcium 20 mg 10/19/23 22:00 10/19/23 20:53 Atorvastatin Calcium 20 Mg Tablet PO 20 mg QHS INGE Administration Cholecalciferol 50 mcg 10/20/23 10:00 Cholecalciferol (Vit D3) 25 Mcg Tablet (1,000 Units) PO DAILY [facility] Dextrose 0 gm 10/19/23 18:10 Dextrose 50%-Water 25 Gm/50 Ml Disp.Syrin IV X1 PRN HYPOGLYCEMIA Protocol Fluticasone Propionate 1 spray 10/20/23 10:00 Fluticasone 0.05% 1 [place] Nasal.Sry NASAL DAILY [facility] Glipizide 5 mg 10/20/23 08:00 Glipizide 5 Mg Tablet [facility] Glucagon 1 mg 10/19/23 18:10 Glucagon 1 Mg/Ml Syringe IM X1 PRN HYPOGLYCEMIA Sodium Chloride 250 mls @ 15 mls/hr 10/19/23 18:14 IV .[id number] PRN Additional IVPB Infusion Sodium Chloride 250 mls @ 15 mls/hr 10/19/23 18:14 IV .[id number] PRN Saline Flush Insulin Human Lispro 0 unit 10/20/23 07:00 10/20/23 07:00 Insulin Lispro 100 Unit/Ml Insuln.Pen SC Not Given TIDAC [facility] Protocol Losartan Potassium 100 mg 10/20/23 10:00 Losartan Potassium 100 Mg Tablet PO DAILY [facility] Protocol Metoprolol Succinate 25 mg 10/20/23 10:00 Metoprolol(Xl)Succ 25 Mg Tablet PO DAILY [facility] Protocol Nifedipine 60 mg 10/20/23 10:00 Nifedipine 60 Mg Tablet PO DAILY [facility] Protocol [id number] Ethyl Esters 1 gm 10/20/23 10:00 [place]-3 Acid Ethyl Esters 1 Gm Capsule PO DAILY [facility] Ondansetron HCl 4 mg 10/19/23 18:10 Ondansetron 4 Mg/2 Ml Vial IV Q8H PRN PRN NAUSEA/VOMITING Pantoprazole Sodium 20 mg 10/20/23 10:00 Pantoprazole Sodium 20 Mg Tablet PO DAILY [facility] Sodium Chloride 10 - 40 ml 10/19/23 18:14 10/19/23 20:54 0.9% Saline Lock 10 Ml Syringe IV 10 ml UD PRN Administration SALINE FLUSH
[2023-10-20 09:38] VITALS: BP 155/70; PULSE 64
[2023-10-20] MEDS: Losartan Potassium 100 MG Tablet PO (09:38)
[2023-10-20] MEDS: Metoprolol(XL)Succ 25 MG Tablet PO (09:38)
[2023-10-20] MEDS: Pantoprazole Sodium 20 MG Tablet PO (09:38)
[2023-10-20] MEDS: glipiZIDE 5 MG Tablet PO (09:38)
[2023-10-20] MEDS: Aspirin 81 MG TAB.CHEW PO (09:38)
[2023-10-20] MEDS: NIFEdipine 60 MG Tablet PO (09:39)
[2023-10-20] MEDS: Cholecalciferol (VIT D3) 25 MCG TABLET (1,000 UNITS) 50 MCG PO (09:39)
[2023-10-20] MEDS: Omega-3 Acid Ethyl Esters 1 GM Capsule PO (09:39)
[2023-10-20] MEDS: Fluticasone 0.05% 1 SPRAY NASAL.SRY NASAL (09:40)
[2023-10-20 11:43] LABS: Bedside Glucose 201 mg/dL (74-106)
[2023-10-20] MEDS: Insulin Lispro 100 UNIT/ML INSULN.PEN SC (11:49)
--- NOTE | 2023-10-20 12:56 | CASEMGMT ---
RN CM in to discuss COLON form with patient. RN CM explained COLON form, patient voiced understanding. Pt signed form and filed in chart. Pt provided with a copy of signed COLON form. Patient had no further questions or concerns at this time. Emily Radford MSN, RN, CCM
--- NOTE | 2023-10-20 13:47 | DCINST_ITS ---
Discharge Instructions Diet Discharge Diet: Low fat / Low cholesterol Activity Discharge Activity: Return to Normal Activity Weight Bearing Status: Weight bearing as tolerated Dressing / Incision Call your doctor if you observe: Fever of 101 or Higher, Shortness of breath, Dizziness, Swelling in the ankles and Chest pain Follow Up Care Test Results: Test results from this visit will be discussed in further detail at your follow- up appointment, if applicable. Discharge Plan Admission Admit Date/Time: 10/19/23 17:36 Primary Reason for Your Visit: visual changes Attending Provider: Maria Luz Hannah Primary Care Provider: Daljit Cook Consulting Providers: Nic Pena; Sapna Lynch; Didi Bonilla; Lindsay Foss; Jayla Villareal; Ajay Owen; Maddie Lewis; Patrick Sarmiento; Mg Foy; Karen Auguste; Cristhian Oneil; Joana Khan; Padma Talamantes; Moe Abel; Grzegorz Radford; Josefina Holt; Ayaan Dahl; Ivonne Del Castillo; Paul Martinez; Shar Torres Instructions Patient Instructions: LUDIVINA So Additional Instructions / Restrictions: follow up with eye doctor within 1-2 days. Discharge Orders/Prescriptions Prescriptions: New aspirin 81 mg Tablet,Chewable 81 mg PO BREAKFAST Qty: 30 2RF Continued atorvastatin 20 MG tablet 20 mg PO QHS omeprazole 10 MG capsule 20 mg PO DAILY losartan 100 MG tablet 100 mg PO DAILY multivitamin Tablet 1 tab PO DAILY cyanocobalamin (vitamin B-12) 100 mcg Tablet 100 mcg PO DAILY fluticasone propionate 50 mcg/actuation [place],Suspension 1 spray INTRANASAL DAILY glipizide 5 mg tablet 5 mg PO DAILY omega-3 fatty acids Capsule 1,000 mg PO DAILY cholecalciferol (vitamin D3) [Vitamin D3] 50 mcg (2,000 unit) Tablet 50 mcg PO DAILY metformin 500 mg tablet 1,000 mg PO BID metoprolol succinate 25 mg tablet extended release 24 hr 25 mg PO DAILY Discontinued nifedipine 60 mg tablet extended release 24hr 60 mg PO DAILY Referrals / Follow Up: Shar Flores MD [Med Staff - Active Staff] - Within 1 Month Bethel Olmos MD [Non-Staff -Ordering Privileges] - Within 2 Weeks Daljit Cook MD [Primary Care Provider] - Within 2 Weeks Disposition Disposition (needs filled in before D/C Order can be placed): Home, Self Care
--- NOTE | 2023-10-20 13:49 | DS.PCM_ITS ---
Providers Date of Admission: 10/19/23 Date of Discharge: 10/20/23 Primary Care Physician: Dr. Laura Cook MD Consultations 10/19/23 18:10 Consult: Tele-Neurology Routine Consulting Provider: [facility] Reason for Consult: Acute Ischemic Stroke/TIA EMERGENT Consult: No MD Notified: Yes Date Notified: 10/19/23 Time Notified: 17:41 Method of Notification: [facility] Nursing [facility] Staff Notify [facility] of Tele-Neurology Consult: Yes Reason For Visit: VISION CHANGES Diagnosis Discharge Diagnosis (1) Change in vision: Status: Acute Code(s): H53.9 - Unspecified visual disturbance Medications at Discharge Home Medications atorvastatin 20 mg tablet 20 mg PO QHS cholesterol 03/21/16 omeprazole 10 mg capsule,delayed release 20 mg PO DAILY reflux 03/21/16 losartan 100 mg tablet 100 mg PO DAILY BP 05/01/17 cholecalciferol (vitamin D3) 50 mcg (2,000 unit) tablet (Vitamin D3) 50 mcg PO DAILY supplement 07/23/22 cyanocobalamin (vitamin B-12) 100 mcg tablet 100 mcg PO DAILY supplement 07/23/22 fluticasone propionate 50 mcg/actuation nasal spray,suspension 1 spray intranasal DAILY sinus 07/23/22 glipizide 5 mg tablet 5 mg PO DAILY diabetes 07/23/22 multivitamin 1 tab PO DAILY health maintenance 07/23/22 omega-3 fatty acids 1,000 mg PO DAILY health maintenance 07/23/22 metformin 500 mg tablet 1,000 mg PO BID diabetes 10/19/23 metoprolol succinate 25 mg tablet,extended release 24 hr 25 mg PO DAILY heart 10/19/23 amlodipine 10 mg tablet 10 mg PO DAILY #30 tabs 10/20/23 aspirin 81 mg chewable tablet 81 mg PO BREAKFAST #30 tabs 10/20/23 Hospital Course Operations None Procedures 2-D Echocardiogram Summary of Care Provided Minutes Spent on Discharge: 45 Hospital Course: Patient is an 78 y/o male with a PMH as outlined who was admitted via [facility] ED on 10/19/2023 with a complaitn of visual changes. He said he had been having black spots in his visual field which were centrally located and persisted for about 2 hours and subsequently resolved. It did not change with position. He did not have any headache or any focal neurological weakness. He came in to the ED and his human resources director was contacted from the ED, but he did not think this was an opthalmology issue. He was therefore admitted to rule out a stroke. He had an MRI of the brain which was negative for any evidence of stroke. CTA head and neck showed 50-69% stenosis in the right ICA. A carotid USG was ordered, but this could not be done on the weekend. Patient was agreeable to getting the carotid USG done on outpatient basis. 2D echo showed EF of 65% with normal left ventricular systolic function and no regional wall motion abnormalities with bioprosthetic aortic valve which has had since baseline 2.2 x 3.4 cm structure which is likely fibrous tissue and was present on previous echogram from July 2022. Neurology reviewed him and thought his symptoms were likely due to an ophthalmology issue or TIA. Patient also stated that his symptoms of status since he went on nifedipine. His nifedipine was therefore discontinued and he was continued on his losartan and metoprolol. His metoprolol dose was increased to 50 mg daily on account of the nifedipine being discontinued. He is to have carotid ultrasound done on outpatient basis and is to follow-up with his primary care doctor and to follow-up with neurology as well as vascular surgery. He is to have carotid ultrasound done on outpatient basis and follow-up with PCP for that. Patient given a prescription for carotid ultrasound on discharge but results to be sent to his PCP Dr. Cook and patient to follow-up with his PCP about these results. Patient seen and examined prior to discharge. He felt well and had no complaints. He had an uneventful night. Review of systems otherwise negative. Labs and vitals reviewed. Home medication reviewed and reconciled. Physical Exam Const alert, oriented x3, no apparent distress, average body habitus and healthy appearing General Appearance: cooperative, comfortable and well kempt HEENT normocephalic, head/scalp atraumatic, hearing grossly normal bilaterally, moist oral mucous membranes, oropharynx normal and dentition normal Mouth: oral and palatal mucosa normal Eyes PERRL and EOMs intact bilaterally Neck no lymphadenopathy and no carotid bruits Resp normal respiratory effort, no retractions, no use of accessory muscles and clear to auscultation bilaterally Cardio regular rate, regular rhythm, S1 normal heart sound and S2 normal heart sound GI normal to inspection, nondistended, normoactive bowel sounds, soft to palpation, non-tender and non-distended Extremity normal to inspection Neuro oriented x3 and moves all extremities Sensorium / Orientation: awake and alert Speech: speech normal Motor Exam: strength 5/5 throughout Psych affect normal Weight / BMI Weight Weight: 222 lb 10.67 oz Body Mass Index (BMI) 30.2 ABG / Lab / Microbiology Data 10/19/23 13:31 10/19/23 13:31 Laboratory: Laboratory Results - last 24 hr 10/19/23 13:31: Sodium 139, Potassium 4.1, Chloride 107, Carbon Dioxide 26.0, Anion Gap 6, BUN 16, Creatinine 1.14, Estim Creat Clear Calc 63.93, Est GFR (MDRD) Af Amer 80, Est GFR (MDRD) Non-Af 66, BUN/Creatinine Ratio 14.0, Glucose 149 H, Calcium 9.2 10/19/23 20:52: POC Glucose 283 H 10/20/23 04:07: Triglycerides 167, Cholesterol 145, LDL Cholesterol 59, VLDL Cholesterol 33, HDL Cholesterol 53 10/20/23 06:58: POC Glucose 142 H 10/20/23 11:23: POC Glucose 201 H Radiography Diagnostic Testing: Radiology Impression Head/Neck CTA 10/19/23 13:08 IMPRESSION: Calcified plaques at the origin of the right internal carotid artery causing between 50 and 69% stenosis. Calcified plaques at the origin of the left internal carotid artery causing less than 50% narrowing. Electronically Signed: Yaron Carbajal MD at 14:28 EDT , Brain MRI 10/19/23 18:10 IMPRESSION: No acute disease. Mastoid effusions. Electronically Signed: Uvaldo Helm MD at 20:34 EDT , Echocardiogram 10/19/23 18:10 Interpretation Summary The base of the bioprosthetic aortic valve has a 2.2 to by 3.4 cm structure which is likely fibrous tissue. This was present on a previous echocardiogram from July 2022. It was evaluated with a SERA and it appears to be at the junction of the base of the aortic valve and the mitral valve. Normal LV size. Left ventricular systolic function is normal. The estimated ejection fraction is 65 %. Bioprosthetic aortic valve. Mean aortic valve gradient 17 mmHg. Compared to the previous the gradients are mildly increased. Ordering Physician: Shar Torres Referring Physician: LAURA COOK Performed By: Bel Hunt RCS D/C Instructions Discharge Diet: Low fat / Low cholesterol Discharge Activity: Return to Normal Activity Weight Bearing Status: Weight bearing as tolerated Call your doctor if you observe: Fever of 101 or Higher, Shortness of breath, Dizziness, Swelling in the ankles and Chest pain Meaningful Use Info Meaningful Use Meaningful Use Diagnoses (Choose all that apply): None applicable Ischemic Stroke Statin Dosing Therapy Reference: STATIN DOSE THERAPY REFERENCE: * Patients > 75 years receive moderate or high dose statin therapy. * Patients 75 years or YOUNGER should receive HIGH intensity statin dose unless contraindicated. You will be required to document reason for non-treatment if statin daily dose does not meet guidelines. HIGH DOSE STATIN THERAPY DAILY Atorvastatin > than or = to 40 mg Rosuvastatin > than or = to 20 mg Amlodipine + Atorvastatin > than or = to 2.5/40 mg Ezetimibe + Simvastatin 10/80 mg Simvastatin 80mg Discharge Plan Admission Admit Date/Time: 10/19/23 17:36 Primary Reason for Your Visit: visual changes Attending Provider: Maria Luz Hannah Primary Care Provider: Laura Cook Consulting Providers: Nic Pena; Sapna Lynch; Didi Bonilla; Lindsay Foss; Jayla Villareal; Ajay Owen; Maddie Lewis; Patrick Sarmiento; Mg Foy; Karen Auguste; Cristhian Oneil; Joana Khan; Padma Talamantes; Moe Abel; Grzegorz Radford; Josefina Holt; Ayaan Dahl; Ivonne Del Castillo; Paul Martinez; Shar Torres Instructions Patient Instructions: LUDIVINA So Additional Instructions / Restrictions: follow up with eye doctor within 2-3 days. Discharge Orders/Prescriptions Prescriptions: New aspirin 81 mg Tablet,Chewable 81 mg PO BREAKFAST Qty: 30 2RF amlodipine 10 mg tablet 10 mg PO DAILY Qty: 30 2RF Continued atorvastatin 20 MG tablet 20 mg PO QHS omeprazole 10 MG capsule 20 mg PO DAILY losartan 100 MG tablet 100 mg PO DAILY multivitamin Tablet 1 tab PO DAILY cyanocobalamin (vitamin B-12) 100 mcg Tablet 100 mcg PO DAILY fluticasone propionate 50 mcg/actuation [place],Suspension 1 spray INTRANASAL DAILY glipizide 5 mg tablet 5 mg PO DAILY omega-3 fatty acids Capsule 1,000 mg PO DAILY cholecalciferol (vitamin D3) [Vitamin D3] 50 mcg (2,000 unit) Tablet 50 mcg PO DAILY metformin 500 mg tablet 1,000 mg PO BID metoprolol succinate 25 mg tablet extended release 24 hr 25 mg PO DAILY Discontinued nifedipine 60 mg tablet extended release 24hr 60 mg PO DAILY Other Ambulatory Orders: Carotid Duplex Ultrasound (Routine) Facility: [facility] - Location: [facility] Ordered By: Dr. Maria Luz Hannah Referrals / Follow Up: Shar Flores MD [Med Staff - Active Staff] - Within 1 Month Bethel Olmos MD [Non-Staff -Ordering Privileges] - Within 2 Weeks Laura Cook MD [Primary Care Provider] - Within 2 Weeks Disposition Disposition (needs filled in before D/C Order can be placed): Home, Self Care Charges/Coding Visit Charges Inpatient E&M: 95011 Disch Hosp >30min
[2023-10-20 13:52] VITALS: BP 155/70; PULSE 64; RESP 18; TEMP 36.7; O2SAT 93
== END 2023-10-20 13:47 | disposition home or self-care (01) ==
LOC: ED 17:12 → PCU 18:01
PROVIDERS: Emergency Provider Emergency Medicine; PCP Family Medicine; Visit Provider Student in an Organized Health Care Education/Training Program
DX: H53.9 Unspecified visual disturbance (principal); I63.233 Cerebral infarction due to unspecified occlusion or stenosis of bilateral carotid arteries; E11.9 Type 2 diabetes mellitus without complications; Z87.891 Personal history of nicotine dependence; Z86.16 Personal history of COVID-19; M48.02 Spinal stenosis, cervical region; E78.00 Pure hypercholesterolemia, unspecified; Z79.84 Long term (current) use of oral hypoglycemic drugs; R42 Dizziness and giddiness; I10 Essential (primary) hypertension; Z79.899 Other long term (current) drug therapy
CPT/HCPCS: 36415; 70496; 70498; 70551; 80048; 80061; 82962; 85025; 93005; 93306; 96360; 97802; 99221; 99285; J7030; Q9967; A4216; G0378

== ENCOUNTER 2024-02-15 10:17 | Inpatient (IN) | payer OTHER, SELFPAY ==
[2024-02-15] VITALS (14 sets, daily range): BP systolic 154–231; BP diastolic 65–98; PULSE 51–68; RESP 14–18; TEMP 36.6–36.8; O2SAT 95–98; BMI 30.2; BMI 29.4
--- NOTE | 2024-02-15 10:33 | EKG12_ITS ---
Test Reason : CP Blood Pressure : / mmHG Vent. Rate : 066 BPM Atrial Rate : 066 BPM P-R Int : 170 ms QRS Dur : 140 ms QT Int : 440 ms P-R-T Axes : 039 238 047 degrees QTc Int : 461 ms Normal sinus rhythm with sinus arrhythmia Right bundle branch block Abnormal ECG Confirmed by RADHA TRINH ([id number]), pictures editor ANDREW LAMA ([id number]) on 02/19/2024 8:26:24 AM Referred By: Confirmed By:RADHA TRINH
--- NOTE | 2024-02-15 10:33 | RAD_ITS ---
STUDY: X-RAY CHEST REASON FOR EXAM: Male, 78 years old. Chest pain TECHNIQUE: Single AP portable view of the chest. COMPARISON: Comparison is made with prior study dated January 28, 2022. FINDINGS: EKG electrodes are seen. The lungs are clear and expanded. There is no demonstrated pleural abnormality. Sternal cerclage wires and vascular clips are present from a prior sternotomy and coronary artery bypass graft procedure (CABG). Normal mediastinum and power. Normal visualized pulmonary arteries. Normal visualized aortic arch and descending thoracic aorta. There are diffuse degenerative changes of the visualized thoracic spine. Normal visualized ribs, clavicles, and shoulders. There is no demonstrated abnormality of the visualized soft tissue structures of the upper abdomen. RAD/Chest 1 View (Portable) IMPRESSION: Status post CABG. No acute abnormality is seen. Electronically Signed: Yaron Carbajal MD at 11:06 EDT ,
[2024-02-15 10:44] LABS: Absolute Lymphocyte Count 0.92 X10^3/uL (0.83-4.51); Absolute Neutrophil Count 8.6 X10^3/uL (2.0-7.7); Basophil# 0.04 X10^3/uL; Basophil% 0.4 % (0-1); Eosinophil# 0.02 X10^3/uL; Eosinophils% 0.2 % (0-5); Hematocrit 43.7 % (40-54); Hemoglobin 14.7 g/dL (13.0-16.5); Lymphocyte # 0.92 X10^3/ul (0.83-4.51); Lymphocyte % 9.1 % (19-41); Mean Corp Hgb Conc 33.6 g/dL (32-36); Mean Corpuscular Hgb 29.9 pg (27.0-32.0); Mean Corpuscular Volume 88.8 fL (80-94); Mean Platelet Vol. 9.8 fl (6.2-12.0); Monocyte# 0.37 X10^3/uL; Monocyte% 3.7 % (0-10); NRBC Flagged by Analyzer 0 % (0-5); Neutrophil # 8.64 X10^3/uL (2.7-7.7); Neutrophil % 85.7 % (47-70); Platelet Count 167 K/mm3 (150-450); RBC Distribution Width CV 12.4 % (11.6-14.6); RBC Distribution Width SD 40.8 fl (35.1-43.9); Red Blood Count 4.92 M/mm3 (4.6-6.2); White Blood Count 10.1 K/mm3 (4.4-11.0)
[2024-02-15 11:10] LABS: Anion Gap 8 (5-15); BUN 20 mg/dL (7-18); BUN/Creat Ratio 18.3 RATIO (10-20); Calcium,Total 9.7 mg/dL (8.5-10.1); Chloride 104 mmol/L (98-107); Creatinine, Serum 1.09 mg/dL (0.70-1.30); EST Glomerular Filtration Rate 69 mL/min (>60); Est Glom Filt Rate - Afr Amer 84 mL/min (>60); Estimated Creatinine Clearance 66.57 ml/min; Glucose 198 mg/dL (74-106); Potassium 4.2 mmol/L (3.5-5.1); Sodium Level 137 mmol/L (136-145); Troponin-I HS (w/2H Reflex) 2237 pg/mL (3.0-78.0)
[2024-02-15] MEDS: Aspirin 81 MG TAB.CHEW 162 MG PO (11:23)
[2024-02-15 11:29] LABS: D-Dimer Quantitative (DVT/PE) 0.34 FEU/ug/m (0.27-0.49)
--- NOTE | 2024-02-15 11:44 | ECHOD_ITS ---
Reason For Study: S/P CA Procedure This was a 2D Doppler, Color Flow transthoracic echocardiogram. Exam performed portable in ED. Left Ventricle Normal LV size. Mild concentric left ventricular hypertrophy. The estimated ejection fraction is 65 %. Stage 1 diastolic dysfunction. No regional wall motion abnormalities noted. Right Ventricle Normal RV size. Normal systolic function. Atria Normal left atrium. Normal right atrium. Mitral Valve The mitral valve is structurally normal. No prolapse or stenosis seen. Trivial mitral valve insufficiency. Tricuspid Valve Normal tricuspid valve. Trivial tricuspid valve insufficiency. Unable to estimate RV systolic pressure due to insufficient tricuspid regurgitant envelope. Aortic Valve The aortic valve is not well visualized in the short axis view. The base of the bioprosthetic aortic valve has a 2.2 to by 3.4 cm structure which is likely fibrous tissue. This was present on a previous echocardiogram from July 2022. It was evaluated with a SERA and it appears to be at the junction of the base of the aortic valve and the mitral valve. Peak aortic valve gradient 39 mmHg. Mean aortic valve gradient 19 mmHg. Pulmonic Valve The pulmonic valve is not well visualized. Great Vessels Normal aortic root. Pericardium/Pleural No pericardial effusion. MMode/2D Measurements & Calculations LVIDd: 5.3 cm IVSd: 1.3 cm Ao root diam: 3.7 cm LVIDs: 3.5 cm LVPWd: 1.3 cm FS: 34.9 % LAV(MOD-bp): 67.2 ml LVAd ap4: 31.5 cm2 SV(MOD-sp4): 62.9 ml LAV(MOD-bp) Indexed: 30.3 ml/m2 LVLd ap4: 8.7 cm LAV(MOD-sp2): 60.9 ml EDV(MOD-sp4): 97.9 ml LAV(MOD-sp4): 60.8 ml EDV(sp4-el): 97.0 ml LVAs ap4: 16.5 cm2 LVLs ap4: 7.0 cm ESV(MOD-sp4): 35.0 ml ESV(sp4-el): 32.6 ml EF(MOD-sp4): 64.2 % EF(sp4-el): 66.3 % SV(sp4-el): 64.3 ml LA A4 area: 22.4 cm2 LA dimension(2D): 4.1 cm RA A4 area: 17.5 cm2 TAPSE: 2.0 cm Time Measurements MV dec time: 0.32 sec Doppler Measurements & Calculations MV E max mio: 78.0 cm/sec Lat Peak E' Mio: 7.4 cm/sec Med Peak E' Mio: 5.7 cm/sec MV A max mio: 104.5 cm/sec E/E' lat: 10.5 E/E' med: 13.6 MV E/A: 0.75 MV V2 max: 113.6 cm/sec MV P1/2t max mio: 86.7 cm/sec Ao V2 max: 310.2 cm/sec MV max P.2 mmHg MV P1/2t: 94.7 msec Ao max P.5 mmHg MV V2 mean: 61.8 cm/sec Ao V2 mean: 201.0 cm/sec MV mean P.8 mmHg MV dec slope: 268.1 cm/sec2 Ao mean P.9 mmHg MV V2 VTI: 35.9 cm MVA(P1/2t): 2.3 cm2 Ao V2 VTI: 66.9 cm AV (velocity ratio): 0.40 LV V1 max: 105.9 cm/sec PA V2 max: 90.0 cm/sec LV V1 max P.5 mmHg PA V2 mean: 62.1 cm/sec LV V1 mean P.6 mmHg LV V1 mean: 76.6 cm/sec LV V1 VTI: 27.0 cm ECHO/Echo Complete Interpretation Summary The estimated ejection fraction is 65 %. Mild concentric left ventricular hypertrophy. Stage 1 diastolic dysfunction. The base of the bioprosthetic aortic valve has a 2.2 to by 3.4 cm structure whi ch is likely fibrous tissue. This was present on a previous echocardiogram from July 2022. It wa s evaluated with a SERA and it appears to be at the junction of the base of the aortic valve and th e mitral valve. Mean aortic valve gradient 19 mmHg. Ordering Physician: Brooke Taylor Referring Physician: Daljit Cook Performed By: Ester Dumont RDCS, RVT
[2024-02-15 11:49] LABS: BNP,B-Type NATRIURETIC PEPTIDE 150.6 pg/mL (0-100)
--- NOTE | 2024-02-15 12:10 | ED.VIS.CHEST ---
HPI History of Present Illness Chief Complaint: Chest Pain Informant: patient Narrative Narrative: Patient is an 78-year-old male with history of aortic stenosis status post bioprosthetic valve repair and atrial fibrillation status post cardioversion (currently normal sinus rhythm) presenting with chest pain. He standing from his PCP office for concern of continued and worsening chest pain. He states he has been having some chest heaviness for the past 1 to 2 months. Worse in the morning. He states will wake up and cough up some phlegm which she feels like builds up in his chest at night. Denies any hemoptysis. States the sputum has been white in color for the most part. Denies any history of any underlying lung disease. States that now for the past week he has had a more constant left-sided chest pain. States is not the pressure he has been having. Cannot report any aggravating or alleviating factors. States prior to this it would be gone by the end of the day but now has been constant for a week which is what is different. He saw his PCP today who recommend he come to the ER for further evaluation. States that he has had an echocardiogram within the last year and thinks it has been normal. Denies any swelling of his legs. Does feel that his legs been a bit weaker lately and he does not have as much exercise tolerance. States he gets more winded she is going up the stairs. No other complaints or concerns reported at this time. States he previously had been on a blood thinner for atrial fibrillation but after cardioversion has been in normal sinus rhythm and the anticoagulation was cost prohibitive so he is not currently on any. [facility] Medical History History of recent stroke CVA (cerebral vascular accident) Atrial fibrillation Diabetes Hypertension High cholesterol COVID Hyperlipidemia Type 2 diabetes mellitus Benign hypertension Home Medications ?Medication ?Instructions ?Recorded ?Last Taken ?Type atorvastatin 20 mg tablet 20 mg PO DAILY cholesterol 03/21/16 10/18/23 History losartan 100 mg tablet 100 mg PO DAILY BP 05/01/17 10/19/23 History cholecalciferol (vitamin D3) 50 100 mcg PO DAILY supplement 07/23/22 10/19/23 History mcg (2,000 unit) tablet (Vitamin D3) cyanocobalamin (vitamin B-12) 100 100 mcg PO DAILY supplement 07/23/22 10/19/23 History mcg tablet fluticasone propionate 50 1 spray intranasal DAILY sinus 07/23/22 10/16/23 History mcg/actuation nasal spray,suspension glipizide 5 mg tablet 5 mg PO DAILY diabetes 07/23/22 10/19/23 History multivitamin 1 tab PO DAILY health maintenance 07/23/22 10/19/23 History omega-3 fatty acids 1,000 mg PO DAILY health 07/23/22 10/19/23 History maintenance metformin 500 mg tablet 1,000 mg PO BID diabetes 10/19/23 10/19/23 History metoprolol succinate 25 mg 25 mg PO DAILY heart 10/19/23 10/19/23 History tablet,extended release 24 hr aspirin 81 mg chewable tablet 81 mg PO BREAKFAST #30 tabs 10/20/23 Unknown Rx montelukast 10 mg tablet 10 mg PO DAILY 02/15/24 Unknown History nitroglycerin 0.4 mg sublingual 0.4 mg sublingual Q5M PRN chest 02/15/24 Unknown History tablet pain omeprazole 20 mg capsule,delayed 20 mg PO DAILY 02/15/24 Unknown History release prednisone 50 mg tablet 50 mg PO DAILY 02/15/24 Unknown History Allergy/AdvReac Type Severity Reaction Status Date / Time No Known Allergies Allergy Verified 02/15/24 10:17 Surgical History Heart valve replaced Social History housing: house Smoking Status: Former smoker ROS ROS ED Constitutional Constitutional ED: Denies chills or fever(s) Cardiovascular Cardiovascular: Reports as per HPI and chest pain; Denies palpitations Respiratory/Chest Respiratory/Chest: Reports cough and dyspnea on exertion Gastrointestinal Gastrointestinal: Denies nausea or vomiting Musculoskeletal Musculoskeletal: Denies arthralgias or myalgias Integumentary Denies rash Neurologic Neurologic: Reports weakness Hematologic/Lymphatic Hematologic/Lymphatic: Denies easy bleeding or easy bruising EXAM Physical Exam Const Vital Signs: 02/15/24 10:17 02/15/24 10:18 02/15/24 10:35 Temperature 97.9 F Temperature Source Temporal Pulse Rate 59 L Respiratory Rate 16 Respiratory Effort Normal Non-Labored Blood Pressure 231/74 H Blood Pressure Mean 126 Pulse Ox 98 Oxygen Delivery Method Room Air Room Air 02/15/24 11:00 02/15/24 11:15 02/15/24 12:00 Temperature Temperature Source Pulse Rate 64 62 68 Respiratory Rate 17 17 16 Respiratory Effort Blood Pressure 191/90 H 212/79 H Blood Pressure Mean 119 123 Pulse Ox 95 95 96 Oxygen Delivery Method Room Air Heart Score History: Moderately Suspicious ECG: Normal Age: >/= 65 years Risk Factors: 1 or 2 Risk Factors Troponin: >/=3 x Normal Limit Score: 6 MDM MDM MDM Narrative Medical decision making narrative: Patient is evaluated for vague chest discomfort that has been progressing over the past few weeks. He was sent by his PCP for concern of a cardiac cause symptoms. EKG shows a right bundle branch block with normal sinus rhythm. This is unchanged compared to his prior EKG. Cardiac workup obtained. Differential includes decompensated heart failure, ACS, pulmonary emboli, symptomatic anemia, pneumonia and pneumothorax Chest x-ray viewed by myself as well as radiology does not show any acute process. Patient is quite hypertensive upon arrival however he does start to improve without any intervention emergency room. He states he tends to be high when he is in healthcare settings. States his chest pain is only very mild at this point. Workup however is remarkable for significant elevated high since he troponin of 2237. Cardiology consult obtained, aspirin is ordered and as patient still has mild chest pain nitroglycerin ordered. Patient restarted heparin drip for concern of NSTEMI. Case is discussed with cardiology, Dr. Lucas, who feels that patient would be best helps having a cardiac catheterization and then admitted here. Patient is agreeable. Patient is admitted to the medicine service and case discussed with admitting physician, Dr. Da Silva and will undergo cardiac catheterization and then be admitted. Patient is agreeable this plan of care. Patient does remain hemodynamically stable in the emergency room. Lab Data Attestation: I reviewed the patient's lab results. Labs: Laboratory Results - last 24 hr 02/15/24 10:30 WBC 10.1 RBC 4.92 Hgb 14.7 Hct 43.7 MCV 88.8 MCH 29.9 MCHC 33.6 RDW Std Deviation 40.8 RDW Coeff of Atmmy 12.4 Plt Count 167 MPV 9.8 Immature Gran % (Auto) 0.900 Neut % (Auto) 85.7 H Lymph % (Auto) 9.1 L [place] % (Auto) 3.7 Eos % (Auto) 0.2 Baso % (Auto) 0.4 Absolute Neuts (auto) 8.6 H Absolute Lymphs (auto) 0.92 Nucleated RBC % 0 PT 13.0 INR 1.0 APTT 27.8 D-Dimer Quant (PE/DVT) 0.34 Sodium 137 Potassium 4.2 Chloride 104 Carbon Dioxide 25.0 Anion Gap 8 BUN 20 H Creatinine 1.09 Estim Creat Clear Calc 66.57 Est GFR (MDRD) Af Amer 84 Est GFR (MDRD) Non-Af 69 BUN/Creatinine Ratio 18.3 Glucose 198 H Calcium 9.7 Troponin I High Sens 2237 H* B-Natriuretic Peptide 150.6 H Radiography Diagnostic Testing: Clinical Impression(s) from Imaging Studies Chest X-Ray 02/15/24 10:33 IMPRESSION: Status post CABG. No acute abnormality is seen. Electronically Signed: Yaron Carbajal MD at 11:06 EDT , Echocardiogram 02/15/24 11:44 Interpretation Summary The estimated ejection fraction is 65 %. Mild concentric left ventricular hypertrophy. Stage 1 diastolic dysfunction. The base of the bioprosthetic aortic valve has a 2.2 to by 3.4 cm structure which is likely fibrous tissue. This was present on a previous echocardiogram from July 2022. It was evaluated with a SERA and it appears to be at the junction of the base of the aortic valve and the mitral valve. Mean aortic valve gradient 19 mmHg. Ordering Physician: Brooke Taylor Referring Physician: Daljit Cook Performed By: Ester Dumont, JAKECS, RVT Rhythm Strip Rhythm Strip: Sinus Rhythm Rate: 66 Ectopy: None EKG Initial EKG: Attestation: I personally reviewed and interpreted this EKG as follows: Interpretation: Sinus Rhythm Comments: Normal sinus rhythm at a rate of 66 bpm with sinus arrhythmia Normal axis Right bundle branch block Normal ST segment Management Discussion w/another healthcare provider: Hospitalist and Sr. Consultant Critical Care Time Critical Care Time: Yes Critical care time (excluding procedures): 30-74 minutes (36), Discussing w/Patient &/or Family/Remnant Sorter, Discussing w/Consultants and Arranging Admission or Transfer Discharge Plan Dx/Rx/DC Orders Clinical Impression: NSTEMI (non-ST elevated myocardial infarction), Hypertension Disposition Disposition: Acute Care Hospital [facility] Discharge Date/Time: 02/15/24 12:54
[2024-02-15] MEDS: HEPARIN/D5w 25,000 UNITS 25,000 UNITS/250 ML IV.SOLN. 10 UNITS CONT INF (12:27)
[2024-02-15] MEDS: Heparin Injection (Vial) 5,000 UNIT/ML VIAL 4000 UNIT IV (12:27)
[2024-02-15 12:29] LABS: Partial Thromboplast Time 27.8 Seconds (24.1-36.2)
[2024-02-15 12:37] LABS: Reflex Troponin-HS? (from REC) Y
[2024-02-15 12:56] LABS: Bedside Glucose 203 mg/dL (74-106)
[2024-02-15 13:26] LABS: Troponin-I HS 2046 pg/mL (3.0-78.0)
--- NOTE | 2024-02-15 13:31 | CON.PCM.CA_ITS ---
<Statement entered by Bam Ivan MD - 02/15/24 17:58> Pt seen & evaluated w/EDIN. I personally interviewed & exam the pt. I was involved in all aspects of pt's orders, interpretation of results & treatment Assessment & Plan Assessment/Plan (1) NSTEMI (non-ST elevated myocardial infarction): (2) Heart valve replaced: (3) Hypertension: (4) High cholesterol: PLAN: Plan * Will proceed with Heart cath today HPI Consult Data Date of Consult: 02/15/24 HPI Narrative HPI Narrative: ARAVIND GRIER, is a 78 M who presented to [facility] emergency room on 02/15/2024 with chest pain. He states that he has had chest pain on and off over the last week however it continued to worsen. It reached the point where he felt that he needed to come in to be evaluated. He does have a history of hypertension, hyperlipidemia, aortic valve stenosis with a bioprosthetic aortic valve, paroxysmal atrial fibrillation. He states he also has had nausea, diaphoresis and shortness of breath. We were consulted for his elevated troponin. Initial troponin was 2237, repeat troponin was 2046. BNP was elevated at 150. [facility] Medical History (Updated 02/15/24 @ 13:42 by Brooke WATSON, PA) History of recent stroke CVA (cerebral vascular accident) Atrial fibrillation Diabetes Hypertension High cholesterol COVID Hyperlipidemia Type 2 diabetes mellitus Benign hypertension Home Medications ?Medication ?Instructions ?Recorded ?Last Taken ?Type atorvastatin 20 mg tablet 20 mg PO DAILY cholesterol 03/21/16 10/18/23 History losartan 100 mg tablet 100 mg PO DAILY BP 05/01/17 10/19/23 History cholecalciferol (vitamin D3) 50 100 mcg PO DAILY supplement 07/23/22 10/19/23 History mcg (2,000 unit) tablet (Vitamin D3) cyanocobalamin (vitamin B-12) 100 100 mcg PO DAILY supplement 07/23/22 10/19/23 History mcg tablet fluticasone propionate 50 1 spray intranasal DAILY sinus 07/23/22 10/16/23 History mcg/actuation nasal spray,suspension glipizide 5 mg tablet 5 mg PO DAILY diabetes 07/23/22 10/19/23 History multivitamin 1 tab PO DAILY health maintenance 07/23/22 10/19/23 History omega-3 fatty acids 1,000 mg PO DAILY health 07/23/22 10/19/23 History maintenance metformin 500 mg tablet 1,000 mg PO BID diabetes 10/19/23 10/19/23 History metoprolol succinate 25 mg 25 mg PO DAILY heart 10/19/23 10/19/23 History tablet,extended release 24 hr aspirin 81 mg chewable tablet 81 mg PO BREAKFAST #30 tabs 10/20/23 Unknown Rx montelukast 10 mg tablet 10 mg PO DAILY 02/15/24 Unknown History nitroglycerin 0.4 mg sublingual 0.4 mg sublingual Q5M PRN chest 02/15/24 Unknown History tablet pain omeprazole 20 mg capsule,delayed 20 mg PO DAILY 02/15/24 Unknown History release prednisone 50 mg tablet 50 mg PO DAILY 02/15/24 Unknown History Allergy/AdvReac Type Severity Reaction Status Date / Time No Known Allergies Allergy Verified 02/15/24 10:17 Surgical History (Updated 02/15/24 @ 13:42 by Brooke WATSON, PA) Heart valve replaced Social History Smoking Status: Former smoker ROS Constitutional Constitutional: Reports as per HPI Eyes Eyes: Denies blind spots, blurry vision or loss of vision Cardiovascular Cardiovascular: Reports chest pain, chest pain with activity, diaphoresis and dyspnea; Denies syncope Respiratory/Chest Respiratory/Chest: Reports dyspnea; Denies cough Gastrointestinal Gastrointestinal: Denies abdominal pain, bloating, diarrhea or vomiting Neurologic Neurologic: Reports as per HPI Physical Exam Const alert, oriented x3, no apparent distress and healthy appearing HEENT normocephalic, head/scalp atraumatic, hearing grossly normal bilaterally, external ears normal, external nose normal and moist oral mucous membranes Eyes PERRL, EOMs intact bilaterally, conjunctivae normal and no scleral icterus Neck no lymphadenopathy, supple and no JVD Cardio regular rate, regular rhythm, S1 normal heart sound, S2 normal heart sound, no rub, no gallops, no clicks, no JVD and peripheral pulses 2+ throughout Heart Sounds: murmur systolic GI normal to inspection, nondistended, normoactive bowel sounds, soft to palpation, non-tender and non-distended Extremity normal to inspection, normal capillary refill, no clubbing, cyanosis or edema and no pedal edema Neuro oriented x3, CN's II-XII intact bilaterally, moves all extremities and no focal motor deficits Psych cooperative and affect normal Risk Stratification Risk Stratification Applicable: Yes Age >/= 65: Yes >/= 3 CAD Risk Factors (HTN, HLD, DM, family hx of CAD, or current smoker): No Aspirin Use in the Past 7 Days: Yes Severe Angina (>/= episodes in 24 hours): Yes EKG ST Changes >/= 0.5mm: No Positive Cardiac Marker: Yes ROMELIA Risk Stratification Score: 4 ROMELIA % Risk: 20% Risk Charges/Coding Visit Charges Office Visits / Consults: 44521 IP Consult L4 Objective Data Vital Signs: Vital Signs Temp Pulse Resp BP Pulse Ox O2 Del Method 97.9 F 55 L 18 165/96 H 96 Room Air 02/15/24 12:53 02/15/24 12:53 02/15/24 12:53 02/15/24 12:53 02/15/24 12:53 02/15/24 12:00 Oxygen Delivery Method Room Air Weight: 223 lb 5.252 oz Body Mass Index (BMI) 30.2 Lab / Micro Data 02/15/24 10:30 02/15/24 10:30 Labs: Laboratory Results - last 24 hr 02/15/24 10:30: WBC 10.1, RBC 4.92, Hgb 14.7, Hct 43.7, MCV 88.8, MCH 29.9, MCHC 33.6, RDW Std Deviation 40.8, RDW Coeff of Tammy 12.4, Plt Count 167, MPV 9.8, Immature Gran % (Auto) 0.900, Neut % (Auto) 85.7 H, Lymph % (Auto) 9.1 L, Sharp % (Auto) 3.7, Eos % (Auto) 0.2, Baso % (Auto) 0.4, Absolute Neuts (auto) 8.6 H, Absolute Lymphs (auto) 0.92, Nucleated RBC % 0, PT 13.0, INR 1.0, APTT 27.8, D- Dimer Quant (PE/DVT) 0.34, Sodium 137, Potassium 4.2, Chloride 104, Carbon Dioxide 25.0, Anion Gap 8, BUN 20 H, Creatinine 1.09, Estim Creat Clear Calc 66.57, Est GFR (MDRD) Af Amer 84, Est GFR (MDRD) Non-Af 69, BUN/Creatinine Ratio 18.3, Glucose 198 H, Calcium 9.7, Troponin I High Sens 2237 H*, B-Natriuretic Peptide 150.6 H 02/15/24 12:38: POC Glucose 203 H 02/15/24 12:48: Troponin I High Sens 2046 H* Cardiology Labs/Tests 02/15/24 10:30: WBC 10.1, RBC 4.92, Hgb 14.7, Hct 43.7, MCV 88.8, MCH 29.9, MCHC 33.6, Plt Count 167, MPV 9.8, Immature Gran % (Auto) 0.900, Neut % (Auto) 85.7 H , Lymph % (Auto) 9.1 L, Sharp % (Auto) 3.7, Eos % (Auto) 0.2, Baso % (Auto) 0.4, Absolute Neuts (auto) 8.6 H, Nucleated RBC % 0, PT 13.0, INR 1.0, APTT 27.8, D- Dimer Quant (PE/DVT) 0.34, Sodium 137, Potassium 4.2, Chloride 104, Carbon Dioxide 25.0, Anion Gap 8, BUN 20 H, Creatinine 1.09, Est GFR (MDRD) Af Amer 84, Est GFR (MDRD) Non-Af 69, BUN/Creatinine Ratio 18.3, Glucose 198 H, Calcium 9.7, B-Natriuretic Peptide 150.6 H Radiography Diagnostic Testing: Radiology Impression Chest X-Ray 02/15/24 10:33 IMPRESSION: Status post CABG. No acute abnormality is seen. Electronically Signed: Yaron Carbajal MD at 11:06 EDT ,
--- NOTE | 2024-02-15 14:41 | HP.PCM.HOS_ITS ---
HPI - General General Date of Admission: 02/15/24 Date of Service: 02/15/24 Chief Complaint: Chest pain HPI Narrative ARAVIND GRIER, is a 78 M who presents to the emergency room at [facility] with a several day history of precordial chest pain which she described as pressure-like in nature. Patient has no previous history of coronary disease, he has a past history of paroxysmal A-fib and a bioprosthetic aortic valve. Workup in the emergency room included an EKG which showed a normal sinus rhythm with a right bundle branch block, patient's cardiac enzymes were elevated with a troponin of 2237. Chemistry profile was remarkable for a glucose of 198, CBC was unremarkable. Chest x-ray showed no acute abnormality. Cardiology was contacted and agreed to take the patient for an emergent heart cath, the cardiac catheterization revealed no significant occlusive coronary disease. Patient will be admitted to PCU for non-STEMI, medications will be adjusted per cardiology. [facility] Medical History History of recent stroke CVA (cerebral vascular accident) Atrial fibrillation Diabetes Hypertension High cholesterol COVID Hyperlipidemia Type 2 diabetes mellitus Benign hypertension Home Medications ?Medication ?Instructions ?Recorded ?Last Taken ?Type atorvastatin 20 mg tablet 20 mg PO DAILY cholesterol 03/21/16 10/18/23 History losartan 100 mg tablet 100 mg PO DAILY BP 05/01/17 10/19/23 History cholecalciferol (vitamin D3) 50 100 mcg PO DAILY supplement 07/23/22 10/19/23 History mcg (2,000 unit) tablet (Vitamin D3) cyanocobalamin (vitamin B-12) 100 100 mcg PO DAILY supplement 07/23/22 10/19/23 History mcg tablet fluticasone propionate 50 1 spray intranasal DAILY sinus 07/23/22 10/16/23 History mcg/actuation nasal spray,suspension glipizide 5 mg tablet 5 mg PO DAILY diabetes 07/23/22 10/19/23 History multivitamin 1 tab PO DAILY health maintenance 07/23/22 10/19/23 History omega-3 fatty acids 1,000 mg PO DAILY health 07/23/22 10/19/23 History maintenance metformin 500 mg tablet 1,000 mg PO BID diabetes 10/19/23 10/19/23 History metoprolol succinate 25 mg 25 mg PO DAILY heart 10/19/23 10/19/23 History tablet,extended release 24 hr aspirin 81 mg chewable tablet 81 mg PO BREAKFAST #30 tabs 10/20/23 Unknown Rx montelukast 10 mg tablet 10 mg PO DAILY 02/15/24 Unknown History nitroglycerin 0.4 mg sublingual 0.4 mg sublingual Q5M PRN chest 02/15/24 Unknown History tablet pain omeprazole 20 mg capsule,delayed 20 mg PO DAILY 02/15/24 Unknown History release prednisone 50 mg tablet 50 mg PO DAILY 02/15/24 Unknown History Allergy/AdvReac Type Severity Reaction Status Date / Time No Known Allergies Allergy Verified 02/15/24 10:17 Surgical History Heart valve replaced Social History (Updated 02/15/24 @ 14:33 by Brianne Plascencia) housing: house Smoking Status: Former smoker ROS Constitutional Constitutional: Denies anorexia, change in weight, chills, fatigue, fever(s), night sweats or weakness Eyes Eyes: Denies blurry vision, change in vision, discharge from eye(s) or eye pain Cardiovascular Cardiovascular: Reports chest pain; Denies claudication, dyspnea on exertion, edema or palpitations Respiratory/Chest Respiratory/Chest: Denies cough, hemoptysis, productive cough, shortness of breath at rest or shortness of breath with exertion Gastrointestinal Gastrointestinal: Denies abdominal pain, constipation, diarrhea, hematemesis, hematochezia, melena, nausea or vomiting Genitourinary Genitourinary: Denies dysuria, hematuria, urinary frequency, urinary hesitancy, urinary incontinence or urinary urgency Musculoskeletal Musculoskeletal: Denies back pain, joint pain, joint stiffness, joint swelling, myalgias or neck pain Neurologic Neurologic: Denies abnormal gait, abnormal speech, dizziness, focal weakness, headache(s), loss of vision, numbness, other visual disturbances, paresthesias, syncope or tingling Psychiatric Psychiatric: Denies anxiety, cognitive impairment, depression, irritability, mood swings or suicidal ideation Endocrine Endocrinology: Denies change in body appearance, cold intolerance, excessive sweating, heat intolerance, polydipsia or polyuria Hematologic/Lymphatic Hematologic/Lymphatic: Denies none, anemia, easy bleeding, easy bruising or lymphadenopathy Allergic/Immunologic Allergic/Immunologic: Denies rhinitis, urticaria, eczemia or asthma Vital Signs Vital Signs Vital Signs: 02/15/24 10:17 02/15/24 10:18 02/15/24 10:35 Temperature 97.9 F Temperature Source Temporal Pulse Rate 59 L Respiratory Rate 16 Respiratory Effort Normal Non-Labored Blood Pressure 231/74 H Blood Pressure Mean 126 Blood Pressure Source Blood Pressure Position Blood Pressure Location Pulse Ox 98 Oxygen Delivery Method Room Air Room Air 02/15/24 11:00 02/15/24 11:15 02/15/24 12:00 Temperature Temperature Source Pulse Rate 64 62 68 Respiratory Rate 17 17 16 Respiratory Effort Blood Pressure 191/90 H 212/79 H Blood Pressure Mean 119 123 Blood Pressure Source Blood Pressure Position Blood Pressure Location Pulse Ox 95 95 96 Oxygen Delivery Method Room Air 02/15/24 12:53 02/15/24 14:14 02/15/24 14:30 Temperature 97.9 F 98.2 F Temperature Source Oral Pulse Rate 55 L 51 L 51 L Respiratory Rate 18 18 17 Respiratory Effort Blood Pressure 165/96 H 186/78 H 176/84 H Blood Pressure Mean 119 114 114 Blood Pressure Source Monitor Monitor Blood Pressure Position Semi-Fowlers Semi-Fowlers Blood Pressure Location Left Arm Left Arm Pulse Ox 96 95 96 Oxygen Delivery Method Room Air Room Air Weight Weight: 101.3 kg Body Mass Index (BMI) 30.2 Physical Exam Const alert, oriented x3, no apparent distress, average body habitus and healthy appearing General Appearance: cooperative, well kempt and well developed Orientation / Consciousness: awake, oriented to person, oriented to place and oriented to time HEENT normocephalic, head/scalp atraumatic, hearing grossly normal bilaterally and moist oral mucous membranes Eyes PERRL, EOMs intact bilaterally and conjunctivae normal Neck supple, no JVD, thyroid normal and no carotid bruits General: trachea midline Resp normal respiratory effort, no retractions, no use of accessory muscles and clear to auscultation bilaterally Auscultation: Negative for rales, rhonchi or wheezes Cardio regular rate, regular rhythm, S1 normal heart sound, S2 normal heart sound, no murmurs, no rub and no gallops GI normal to inspection, nondistended, normoactive bowel sounds, soft to palpation, non-tender and non-distended Extremity no clubbing, cyanosis or edema Skin no rashes or lesions noted General Skin Exam: no breakdown Neuro oriented x3, CN's II-XII intact bilaterally, moves all extremities, no focal motor deficits and no sensory deficits noted Sensorium / Orientation: awake and alert Speech: speech normal Psych affect normal Results Lab / Micro Data 02/15/24 10:30 02/15/24 10:30 Labs: Laboratory Results - last 24 hr 02/15/24 10:30: WBC 10.1, RBC 4.92, Hgb 14.7, Hct 43.7, MCV 88.8, MCH 29.9, MCHC 33.6, RDW Std Deviation 40.8, RDW Coeff of Tammy 12.4, Plt Count 167, MPV 9.8, Immature Gran % (Auto) 0.900, Neut % (Auto) 85.7 H, Lymph % (Auto) 9.1 L, [place] % (Auto) 3.7, Eos % (Auto) 0.2, Baso % (Auto) 0.4, Absolute Neuts (auto) 8.6 H, Absolute Lymphs (auto) 0.92, Nucleated RBC % 0, PT 13.0, INR 1.0, APTT 27.8, D- Dimer Quant (PE/DVT) 0.34, Sodium 137, Potassium 4.2, Chloride 104, Carbon Dioxide 25.0, Anion Gap 8, BUN 20 H, Creatinine 1.09, Estim Creat Clear Calc 66.57, Est GFR (MDRD) Af Amer 84, Est GFR (MDRD) Non-Af 69, BUN/Creatinine Ratio 18.3, Glucose 198 H, Calcium 9.7, Troponin I High Sens 2237 H*, B-Natriuretic Peptide 150.6 H 02/15/24 12:38: POC Glucose 203 H 02/15/24 12:48: Troponin I High Sens 2046 H* Imaging Radiology Impression Chest X-Ray 02/15/24 10:33 IMPRESSION: Status post CABG. No acute abnormality is seen. Electronically Signed: Yaron Carbajal MD at 11:06 EDT , Assessment & Plan Assessment/Plan (1) NSTEMI (non-ST elevated myocardial infarction): PLAN: Plan 1. Vgn-ARMNY-odnckul will be admitted to PCU, he will be monitored, echocardiogram was already performed today, medications will be adjusted per cardiology #2 type 2 diabetes-patient's blood sugars will be monitored, sliding scale insulin will be administered as needed #3 valvular heart disease-patient has a bioprosthetic aortic valve #4 hyperlipidemia-patient is on a statin #5 cerebrovascular disease-patient is currently on an 81 mg aspirin daily #6 essential hypertension-patient will remain on his home medications, these will be adjusted as needed Total clinical time spent by myself addressing the patient's medical issues, reviewing all of his data, and collaborating with patient's care team: 55 minutes
[2024-02-15] MEDS: Insulin Lispro 100 UNIT/ML INSULN.PEN SC ×2 (17:17→22:03)
[2024-02-15 17:19] LABS: Bedside Glucose 249 mg/dL (74-106)
--- NOTE | 2024-02-15 17:48 | PCM.OP.PRO ---
Procedure Report Date of Procedure: 02/15/24 Cardiac catheterization; 1. Moderate sedation 2. Selective left coronary grafting 3. Selective right coronary angiography. Preprocedure diagnosis 78-year-old patient, presented to the ER at [facility] Complaining of symptoms of chest pain which has been for several days. Described as precordial chest pain pressure-like and heaviness. Patient has a history of bioprosthetic aortic valve and paroxysmal atrial fibrillation currently he is not on anticoagulation And has been followed by his can doffer at [facility]. On review of the record from the ER he has a right bundle branch block on the EKG and he has significant elevated high sensitive troponin With a clinical diagnosis of non-ST elevation SD. Consent; risk-benefit of the procedure explained detail patient agreed to proceed informed consent obtained. Diagnostic catheter used; 1. 5 [place] catheter 2. 5 [place] JR 4 diagnostic catheter Procedure in detail. Patient brought from ER to the Test Fixture Assembler here at [facility] Access obtained from the right radial artery and 6 [place] sheath placed in the right radial artery A cocktail of verapamil, heparin as well as nitroglycerin was given through the sheath. Then we proceed with 5 [place] catheter advanced sending [place] cannulated the left main without difficulty Following this catheter change for 5 [place] JR4 catheter and cannulated the right coronary artery without difficulty Coronary angiography; 1. Left main calcified angiographically no significant atherosclerosis Bifurcating into LAD and the left circumflex 2. Left anterior descending large vessel reach out to its apex The mid LAD had nonobstructive atherosclerosis of around 40-50% involving a sidebranch which is a diagonal branch 3. The left circumflex artery moderate to large in size The OM has some mild haziness proximally with nonobstructive sclerosis of around 30% Some large OM1 with ROMELIA-3 flow into OM1 The circumflex in the AV groove has no significant obstructive coronary 4. RCA large dominant angiographically ostial, proximal, mid and distal RCA has been no significant atherosclerosis. With a ROMELIA-3 flow in the RCA Conclusion recommendation 78-year-old patient presented with symptoms of chest pain has a bioprosthetic aortic valve with a paroxysmal A-fib hypertension Has significant symptoms of angina and elevated cardiac biomarker The clinical diagnosis is non-ST elevation SD cardiac catheterization does not reveal obstructive coronary atherosclerosis and recommendation would be medical therapy 1. Dual antiplatelet therapy with aspirin and Plavix For at least 1 year 2. Low-dose beta-teresa as tolerated by his heart rate 3. Heparin infusion for 24 hours. 4. High-dose statin/atorvastatin to start with 40 mg 5. Will continue to monitor in progressive care unit Bam Ivan MD,FACC,[facility]
[2024-02-15] MEDS: 0.9% Saline Lock 10 ML Syringe IV (22:06)
[2024-02-15 23:07] LABS: Bedside Glucose 194 mg/dL (74-106)
[2024-02-16 05:58] VITALS: BP 196/95; PULSE 47; RESP 18; TEMP 36.8; O2SAT 97
[2024-02-16 06:52] LABS: Bedside Glucose 111 mg/dL (74-106)
[2024-02-16 06:54] VITALS: BP 196/95; PULSE 47
[2024-02-16] MEDS: hydrALAZINE 20 MG/ML Vial 10 MG IV (06:54)
[2024-02-16] MEDS: 0.9% Saline Lock 10 ML Syringe IV (06:55)
--- NOTE | 2024-02-16 09:02 | DCINST_ITS ---
Discharge Instructions Diet Discharge Diet: 1800 Calorie Control Diet Activity Discharge Activity: Return to Normal Activity Weight Bearing Status: Full weight bearing Follow Up Care Test Results: Test results from this visit will be discussed in further detail at your follow- up appointment, if applicable. Discharge Plan Admission Admit Date/Time: 02/15/24 12:38 Primary Reason for Your Visit: NSTEMI Attending Provider: Vicente Ryan Primary Care Provider: Daljit Cook Consulting Providers: Bam Ivan Instructions Additional Instructions / Restrictions: follow up with your traction power engineer within a month Discharge Orders/Prescriptions Prescriptions: New clopidogrel [Plavix] 75 mg tablet 75 mg PO DAILY Qty: 30 1RF Rx Instructions: start 02/16/24 Continued atorvastatin 20 MG tablet 20 mg PO DAILY losartan 100 MG tablet 100 mg PO DAILY multivitamin Tablet 1 tab PO DAILY cyanocobalamin (vitamin B-12) 100 mcg Tablet 100 mcg PO DAILY fluticasone propionate 50 mcg/actuation [place],Suspension 1 spray INTRANASAL DAILY glipizide 5 mg tablet 5 mg PO DAILY omega-3 fatty acids Capsule 1,000 mg PO DAILY cholecalciferol (vitamin D3) [Vitamin D3] 50 mcg (2,000 unit) Tablet 100 mcg PO DAILY metformin 500 mg tablet 1,000 mg PO BID metoprolol succinate 25 mg tablet extended release 24 hr 25 mg PO DAILY aspirin 81 mg Tablet,Chewable 81 mg PO BREAKFAST Qty: 30 2RF nitroglycerin 0.4 mg tablet, sublingual 0.4 mg sublingual Q5M PRN (Reason: chest pain) montelukast 10 mg tablet 10 mg PO DAILY prednisone 50 mg tablet 50 mg PO DAILY omeprazole 20 mg capsule,delayed release(DR/EC) 20 mg PO DAILY Referrals / Follow Up: Daljit Cook MD [Primary Care Provider] - Within 2 Weeks Disposition Disposition (needs filled in before D/C Order can be placed): Home, Self Care
--- NOTE | 2024-02-16 09:09 | DS.PCM_ITS ---
Providers Date of Admission: 02/15/24 Date of Discharge: 02/16/24 Primary Care Physician: Dr. Daljit Cook MD Consultations 02/15/24 14:12 Consult: Cardiology Routine Consulting Provider: Bam Ivan Reason for Consult: NSTEMI EMERGENT Consult: No MD Notified: Yes Date Notified: 02/15/24 Time Notified: 12:43 Method of Notification: Verbal Reason For Visit: NSTEMI Diagnosis Discharge Diagnosis (1) NSTEMI (non-ST elevated myocardial infarction): Status: Acute Code(s): I21.4 - Non-ST elevation (NSTEMI) myocardial infarction Plan 1. [id number] will be admitted to PCU, he will be monitored, echocardiogram was already performed today, medications will be adjusted per cardiology #2 type 2 diabetes-patient's blood sugars will be monitored, sliding scale insulin will be administered as needed #3 valvular heart disease-patient has a bioprosthetic aortic valve #4 hyperlipidemia-patient is on a statin #5 cerebrovascular disease-patient is currently on an 81 mg aspirin daily #6 essential hypertension-patient will remain on his home medications, these will be adjusted as needed Total clinical time spent by myself addressing the patient's medical issues, reviewing all of his data, and collaborating with patient's care team: 55 minutes Medications at Discharge Home Medications atorvastatin 20 mg tablet 20 mg PO DAILY cholesterol 03/21/16 losartan 100 mg tablet 100 mg PO DAILY BP 05/01/17 cholecalciferol (vitamin D3) 50 mcg (2,000 unit) tablet (Vitamin D3) 100 mcg PO DAILY supplement 07/23/22 cyanocobalamin (vitamin B-12) 100 mcg tablet 100 mcg PO DAILY supplement 07/23/22 fluticasone propionate 50 mcg/actuation nasal spray,suspension 1 spray intranasal DAILY sinus 07/23/22 glipizide 5 mg tablet 5 mg PO DAILY diabetes 07/23/22 multivitamin 1 tab PO DAILY health maintenance 07/23/22 omega-3 fatty acids 1,000 mg PO DAILY health maintenance 07/23/22 metformin 500 mg tablet 1,000 mg PO BID diabetes 10/19/23 metoprolol succinate 25 mg tablet,extended release 24 hr 25 mg PO DAILY heart 10/19/23 aspirin 81 mg chewable tablet 81 mg PO BREAKFAST [facility] #30 tabs 05/04/24 montelukast 10 mg tablet 10 mg PO DAILY allergies 02/15/24 nitroglycerin 0.4 mg sublingual tablet 0.4 mg sublingual Q5M PRN chest pain 02/15/24 omeprazole 20 mg capsule,delayed release 20 mg PO DAILY acid reflux 02/15/24 prednisone 50 mg tablet 50 mg PO DAILY steroid 02/15/24 clopidogrel 75 mg tablet (Plavix) 75 mg PO DAILY #30 tabs 02/16/24 Hospital Course Operations None Procedures Cardiac catheterization Summary of Care Provided Minutes Spent on Discharge: 31 Hospital Course: This 78-year-old white male was seen in the emergency room at [facility] with complaints of chest pain. He was sent in from his PCPs office due to worsening chest pain, he states he has been having intermittent chest pain for the past 1 to 2 months. Labs obtained showed normal white blood cell count and hemoglobin, BUN was 20, troponin was 2237 and beta nitric peptide was 150. No acute abnormality was noted on the patient's chest x-ray. Patient was taken to the cardiac catheterization lab directly from ER, he underwent a cardiac catheterization which showed nonocclusive coronary disease, there was no indication for any intervention. Patient was admitted to PCU and his medications were adjusted, patient had an echocardiogram which showed a normal EF and a bioprosthetic aortic valve. On 02/16/2024, patient was seen and examined: On examination he appeared in good health and spirits. Vital signs as documented. Skin warm and dry and without overt rashes. Neck without JVD, neck was supple, trachea midline, thyroid was normal. Lungs clear bilaterally, normal air movement was noted. Heart exam notable for regular rhythm, normal sounds, patient had a 2/6 systolic murmur noted at the left sternal border and apex, no rubs or gallops. Abdomen unremarkable and without evidence of organomegaly, masses, or abdominal aortic enlargement. Bowel sounds are present, abdomen is not distended. Extremities nonedematous, no cyanosis was noted, no clubbing was noted. Neuro: Cranial nerves II through XII are grossly intact, no focal motor deficits were noted, sensation to light touch and pinprick intact, motor exam 5/5 throughout. Psych: Patient is alert and oriented x3, he does not appear anxious or depressed, he does not appear agitated. On 02/16/2024, patient was seen and examined and discharged home in stable condition. Weight / BMI Weight Weight: 98.5 kg Body Mass Index (BMI) 29.4 ABG / Lab / Microbiology Data 02/15/24 10:30 02/15/24 10:30 Laboratory: Laboratory Results - last 24 hr 02/15/24 10:30: WBC 10.1, RBC 4.92, Hgb 14.7, Hct 43.7, MCV 88.8, MCH 29.9, MCHC 33.6, RDW Std Deviation 40.8, RDW Coeff of Tammy 12.4, Plt Count 167, MPV 9.8, Immature Gran % (Auto) 0.900, Neut % (Auto) 85.7 H, Lymph % (Auto) 9.1 L, [place] % (Auto) 3.7, Eos % (Auto) 0.2, Baso % (Auto) 0.4, Absolute Neuts (auto) 8.6 H, Absolute Lymphs (auto) 0.92, Nucleated RBC % 0, PT 13.0, INR 1.0, APTT 27.8, D- Dimer Quant (PE/DVT) 0.34, Sodium 137, Potassium 4.2, Chloride 104, Carbon Dioxide 25.0, Anion Gap 8, BUN 20 H, Creatinine 1.09, Estim Creat Clear Calc 66.57, Est GFR (MDRD) Af Amer 84, Est GFR (MDRD) Non-Af 69, BUN/Creatinine Ratio 18.3, Glucose 198 H, Calcium 9.7, Troponin I High Sens 2237 H*, B-Natriuretic Peptide 150.6 H 02/15/24 12:38: POC Glucose 203 H 02/15/24 12:48: Troponin I High Sens 2046 H* 02/15/24 16:58: POC Glucose 249 H 02/15/24 22:01: POC Glucose 194 H 02/16/24 05:46: POC Glucose 111 H Radiography Diagnostic Testing: Radiology Impression Chest X-Ray 02/15/24 10:33 IMPRESSION: Status post CABG. No acute abnormality is seen. Electronically Signed: Yaron Carbajal MD at 11:06 EDT , Echocardiogram 02/15/24 11:44 Interpretation Summary The estimated ejection fraction is 65 %. Mild concentric left ventricular hypertrophy. Stage 1 diastolic dysfunction. The base of the bioprosthetic aortic valve has a 2.2 to by 3.4 cm structure which is likely fibrous tissue. This was present on a previous echocardiogram from July 2022. It was evaluated with a SERA and it appears to be at the junction of the base of the aortic valve and the mitral valve. Mean aortic valve gradient 19 mmHg. Ordering Physician: Brooke Taylor Referring Physician: Daljit Cook Performed By: Ester Dumotn, TARI, RVT D/C Instructions Discharge Diet: 1800 Calorie Control Diet Weight Bearing Status: Full weight bearing Meaningful Use Info Meaningful Use Meaningful Use Diagnoses (Choose all that apply): AMI AMI/Post PCI/Angioplasty Aspirin given w/in 24hrs of arrival?: Yes ASA at discharge?: Yes Antiplatelet Therapy at Discharge:: Yes Statins at discharge?: Yes Vinay/ARB at discharge?: Yes Beta Colten at discharge?: Yes Done w/ Acute OR measure.: Yes Documented LVEF (%): 65 Ischemic Stroke Statin Dosing Therapy Reference: STATIN DOSE THERAPY REFERENCE: * Patients > 75 years receive moderate or high dose statin therapy. * Patients 75 years or YOUNGER should receive HIGH intensity statin dose unless contraindicated. You will be required to document reason for non-treatment if statin daily dose does not meet guidelines. HIGH DOSE STATIN THERAPY DAILY Atorvastatin > than or = to 40 mg Rosuvastatin > than or = to 20 mg Amlodipine + Atorvastatin > than or = to 2.5/40 mg Ezetimibe + Simvastatin 10/80 mg Simvastatin 80mg Discharge Plan Admission Admit Date/Time: 02/15/24 12:38 Primary Reason for Your Visit: NSTEMI Attending Provider: Vicente Ryan Primary Care Provider: Daljit Cook Consulting Providers: Bam Ivan Instructions Additional Instructions / Restrictions: follow up with your plastics nurse within a month Discharge Orders/Prescriptions Prescriptions: New clopidogrel [Plavix] 75 mg tablet 75 mg PO DAILY Qty: 30 1RF Rx Instructions: start 02/16/24 Continued atorvastatin 20 MG tablet 20 mg PO DAILY losartan 100 MG tablet 100 mg PO DAILY multivitamin Tablet 1 tab PO DAILY cyanocobalamin (vitamin B-12) 100 mcg Tablet 100 mcg PO DAILY fluticasone propionate 50 mcg/actuation [place],Suspension 1 spray INTRANASAL DAILY glipizide 5 mg tablet 5 mg PO DAILY omega-3 fatty acids Capsule 1,000 mg PO DAILY cholecalciferol (vitamin D3) [Vitamin D3] 50 mcg (2,000 unit) Tablet 100 mcg PO DAILY metformin 500 mg tablet 1,000 mg PO BID metoprolol succinate 25 mg tablet extended release 24 hr 25 mg PO DAILY aspirin 81 mg Tablet,Chewable 81 mg PO BREAKFAST Qty: 30 2RF nitroglycerin 0.4 mg tablet, sublingual 0.4 mg sublingual Q5M PRN (Reason: chest pain) montelukast 10 mg tablet 10 mg PO DAILY prednisone 50 mg tablet 50 mg PO DAILY omeprazole 20 mg capsule,delayed release(DR/EC) 20 mg PO DAILY Referrals / Follow Up: Daljit Cook MD [Primary Care Provider] - Within 2 Weeks Disposition Disposition (needs filled in before D/C Order can be placed): Home, Self Care Charges/Coding Visit Charges Inpatient E&M: 77362 Disch Hosp >30min
[2024-02-16 10:39] VITALS: BP 161/66; PULSE 60; RESP 18; TEMP 36.4; O2SAT 99
== END 2024-02-16 11:18 | disposition home or self-care (01) | DRG 282 ==
LOC: ED 12:10 → PCU 12:29
PROVIDERS: Admitting Provider Internal Medicine; Emergency Provider Emergency Medicine; PCP Family Medicine; Visit Provider Internal Medicine
DX: I21.4 Non-ST elevation (NSTEMI) myocardial infarction (principal); E11.9 Type 2 diabetes mellitus without complications; Z95.1 Presence of aortocoronary bypass graft; I10 Essential (primary) hypertension; Z95.3 Presence of xenogenic heart valve; I25.10 Atherosclerotic heart disease of native coronary artery without angina pectoris; E78.00 Pure hypercholesterolemia, unspecified; Z79.82 Long term (current) use of aspirin; Z79.84 Long term (current) use of oral hypoglycemic drugs; Z79.899 Other long term (current) drug therapy; Z87.891 Personal history of nicotine dependence; Z86.16 Personal history of COVID-19; Z86.73 Personal history of transient ischemic attack (TIA), and cerebral infarction without residual deficits
CPT/HCPCS: 71045; 80048; 82962; 83880; 84484; 85025; 85379; 85610; 85730; 93005; 93306; 93454; 99152; 99153; 99285; J7040; Q9967; A4216; C1769; C1894

== ENCOUNTER 2024-02-25 11:32 | Emergency (ER) | payer OTHER, SELFPAY ==
[2024-02-25 11:32] VITALS: BP 148/107; PULSE 127; RESP 16; TEMP 36.8; O2SAT 98; BMI 30.1
--- NOTE | 2024-02-25 11:38 | EKG12_ITS ---
Test Reason : CHEST PAIN Blood Pressure : / mmHG Vent. Rate : 130 BPM Atrial Rate : 130 BPM P-R Int : 200 ms QRS Dur : 134 ms QT Int : 294 ms P-R-T Axes : 000 197 017 degrees QTc Int : 432 ms Sinus tachycardia Right bundle branch block Abnormal ECG Confirmed by YOANA VILLATORO MD ([id number]), associate entertainment editor ANDREW LAMA ([id number]) on 02/28/2024 9:24:04 AM Referred By: Confirmed By:YOANA VILLATORO MD
--- NOTE | 2024-02-25 11:55 | RAD_ITS ---
INDICATION: chest pain EXAMINATION/TECHNIQUE: X-RAY - XR Chest 1 View COMPARISON: Prior study dated: 02/15/2024 FINDINGS: LINES/DEVICES: None. LUNGS: No consolidation, edema or effusion. No pneumothorax. MEDIASTINUM AND CARDIOVASCULAR STRUCTURES: Normal cardiac silhouette. Status post median sternotomy. BONES AND SOFT TISSUES: No demonstrated acute osseous changes. RAD/Chest 1 View (Portable) IMPRESSION: No radiographic evidence of acute cardiopulmonary disease. Electronically Signed: Maxx Sarah MD at 12:19 EDT ,
[2024-02-25 11:57] LABS: Absolute Neutrophil Count 4.8 X10^3/uL (2.0-7.7); Basophil# 0.05 X10^3/uL; Basophil% 0.7 % (0-1); Eosinophil# 0.07 X10^3/uL; Hematocrit 45.6 % (40-54); Hemoglobin 15.2 g/dL (13.0-16.5); Mean Corp Hgb Conc 33.3 g/dL (32-36); Mean Corpuscular Hgb 30.1 pg (27.0-32.0); Mean Corpuscular Volume 90.3 fL (80-94); Mean Platelet Vol. 10.1 fl (6.2-12.0); Monocyte# 0.62 X10^3/uL; Monocyte% 8.9 % (0-10); NRBC Flagged by Analyzer 0 % (0-5); Neutrophil # 4.81 X10^3/uL (2.7-7.7); Neutrophil % 68.8 % (47-70); Platelet Count 178 K/mm3 (150-450); RBC Distribution Width CV 12.7 % (11.6-14.6); RBC Distribution Width SD 41.8 fl (35.1-43.9); Red Blood Count 5.05 M/mm3 (4.6-6.2)
[2024-02-25 12:12] LABS: International Normalized Ratio 1.1; Prothrombin Time (Protime)PT. 13.7 SECONDS (11.7-14.9)
[2024-02-25 12:16] LABS: Anion Gap 9 (5-15); BUN 22 mg/dL (7-18); BUN/Creat Ratio 18.6 RATIO (10-20); Calcium,Total 9.6 mg/dL (8.5-10.1); Chloride 104 mmol/L (98-107); Creatinine, Serum 1.18 mg/dL (0.70-1.30); EST Glomerular Filtration Rate 63 mL/min (>60); Est Glom Filt Rate - Afr Amer 76 mL/min (>60); Estimated Creatinine Clearance 61.35 ml/min; Glucose 252 mg/dL (74-106); Potassium 4.5 mmol/L (3.5-5.1); Sodium Level 139 mmol/L (136-145); Troponin-I HS (w/2H Reflex) 59 pg/mL (3.0-78.0)
--- NOTE | 2024-02-25 12:19 | EDS_ITS ---
HPI History of Present Illness Chief Complaint: Chest Pain [facility] Medical History History of recent stroke CVA (cerebral vascular accident) Atrial fibrillation Diabetes Hypertension High cholesterol COVID Hyperlipidemia Type 2 diabetes mellitus Benign hypertension Home Medications ?Medication ?Instructions ?Recorded ?Last Taken ?Type atorvastatin 20 mg tablet 20 mg PO DAILY cholesterol 03/21/16 10/18/23 History losartan 100 mg tablet 100 mg PO DAILY BP 05/01/17 10/19/23 History cholecalciferol (vitamin D3) 50 100 mcg PO DAILY supplement 07/23/22 10/19/23 History mcg (2,000 unit) tablet (Vitamin D3) cyanocobalamin (vitamin B-12) 100 100 mcg PO DAILY supplement 07/23/22 10/19/23 History mcg tablet fluticasone propionate 50 1 spray intranasal DAILY sinus 07/23/22 10/16/23 History mcg/actuation nasal spray,suspension glipizide 5 mg tablet 5 mg PO DAILY diabetes 07/23/22 10/19/23 History multivitamin 1 tab PO DAILY health maintenance 07/23/22 10/19/23 History omega-3 fatty acids 1,000 mg PO DAILY health 07/23/22 10/19/23 History maintenance metformin 500 mg tablet 1,000 mg PO BID diabetes 10/19/23 10/19/23 History metoprolol succinate 25 mg 25 mg PO DAILY heart 10/19/23 10/19/23 History tablet,extended release 24 hr aspirin 81 mg chewable tablet 81 mg PO BREAKFAST heart health 10/20/23 Unknown Rx #30 tabs montelukast 10 mg tablet 10 mg PO DAILY allergies 02/15/24 Unknown History nitroglycerin 0.4 mg sublingual 0.4 mg sublingual Q5M PRN chest 02/15/24 Unknown History tablet pain omeprazole 20 mg capsule,delayed 20 mg PO DAILY acid reflux 02/15/24 Unknown History release prednisone 50 mg tablet 50 mg PO DAILY steroid 02/15/24 Unknown History clopidogrel 75 mg tablet (Plavix) 75 mg PO DAILY #30 tabs 02/16/24 Unknown Rx Allergy/AdvReac Type Severity Reaction Status Date / Time No Known Allergies Allergy Verified 02/25/24 11:36 Surgical History Heart valve replaced Social History housing: house Smoking Status: Former smoker EXAM Physical Exam Const Vital Signs: 02/25/24 11:32 02/25/24 11:38 02/25/24 12:00 Temperature 98.2 F Temperature Source Temporal Pulse Rate 127 H Respiratory Rate 16 Respiratory Effort Normal Blood Pressure 148/107 H Blood Pressure Mean 120 Pulse Ox 98 Oxygen Delivery Method Room Air Room Air 02/25/24 12:48 02/25/24 13:00 02/25/24 14:00 Temperature Temperature Source Pulse Rate 102 H 125 H 70 Respiratory Rate 14 19 H 16 Respiratory Effort Blood Pressure 162/75 H 162/75 H 135/80 H Blood Pressure Mean 104 104 98 Pulse Ox 99 99 96 Oxygen Delivery Method Room Air 02/25/24 15:00 02/25/24 16:06 Temperature 97.8 F Temperature Source Pulse Rate 70 68 Respiratory Rate 18 18 Respiratory Effort Blood Pressure 134/85 H 150/89 H Blood Pressure Mean 101 109 Pulse Ox 97 98 Oxygen Delivery Method Room Air MDM MDM MDM Narrative Medical decision making narrative: HISTORY OF PRESENT ILLNESS: 78 old male with a history of hypertension, hyperlipidemia, aortic valve stenosis with a bioprosthetic aortic valve a proximal A-fib comes in with chest pain. He notes chest heaviness with exertion. The patient denies immobilization in the last 3 days, denies previous diagnosis of DVT or PE, hemoptysis, unilateral leg swelling or malignancy with treatment the last 6 mo nths or palliative. No estrogen use noted. Patient denies sudden onset of pain, no tearing sensation, no migratory symptoms, no new numbness, weakness or loss of sensation. Patient denies family history or personal history of Connective tissue disorders (Marfan's Syndrome, Renée Danlos etc). REVIEW OF SYSTEMS: Pertinent positives: Chest heaviness Pertinent negatives: Leg swelling PHYSICAL EXAM: Nursing triage notes reviewed, Vital signs reviewed Constitutional: please see mdm HENT: MMM Eyes: Pupils equal round and reactive to light, Extraocular muscles intact Neck: No stridor, no JVD, full neck ROM Lungs: Clear to auscultation, No wheezing or rales. No increased work of breathing, no conversational dyspnea, no accessory muscle use, no nasal flaring. No respiratory distress noted Heart: Fast rate and rhythm, No murmurs, No rubs and No gallops, 2+ distal pulses (radial, femoral, posterior tibial) in all extremities Abdomen: Soft, there is no tenderness, rigidity, rebound or guarding, no obvious peritoneal signs, no palpable pulsatile abdominal masses, no auscultated abdominal bruit : No CVAT Extremities: No edema Neuro: No focal neurological deficits, cranial nerves II through XII intact, 5/5 strength in all extremities. Intact sensation to light touch in all extremities, 2+ reflexes bilateral patella tendons. Normal gait. No ataxia. Skin: No rash or lesions noted MEDICAL DECISION MAKING: Chief Complaint: Chest pain External records reviewed: Echocardiogram reviewed from 02/15/2024 shows ejection fraction 65%. Reviewed prior admission from 02/15/2024 to 02/16/2024 Factors affecting care: as per HPI Social determinants of health: none History obtained from others: none Consults: Cardiology [facility] Narrative: Patient was initially tachycardic, afebrile, nontoxic-appearing. Exam without focal cardiopulmonary abnormalities. I considered the following differential diagnosis: Arrhythmia, anemia, electrolyte disturbance, PE, aortic dissection, pneumonia I obtained a broad lab and imaging workup to further elucidate etiology of patient complaint ALL IMAGES (IF OBTAINED) HAVE BEEN PERSONALLY REVIEWED AND INTERPRETED BY MYSELF. EKG with sinus tachycardia rate of 130, right axis deviation, right bundle branch block, no STEMI, no significant changes from prior Initial troponin is 59, delta troponin 76, delta of 17 (this is less than 20 per protocol) D-dimer is negative making VTE less likely CBC without leukocytosis, severe anemia, no thrombocytopenia. BMP without evidence of significant electrolyte abnormalities, no anion gap, no acute kidney injury. I have personally reviewed the patient's chest x-ray. Chest x-ray is unremarkable for pulmonary edema, pneumothorax, pneumonia or focal cardiopulmonary abnormality. On reevaluation patient's heart rate improved to 70 spontaneously. He felt much better. I suspect his symptoms were related to elevated heart rate. I consulted cardiology (Dr. Del Angel) he reviewed the patient history, physical exam as well as recent cath report. No major disease noted cardiology. Cardiology recommended discharge given recent clean cath 2 negative troponin biomarkers. I asked specifically about the troponin elevation 59-76 Dr. Del Angel stated this was less than 20 and is appropriate for discharge The patient and/or family, caregivers express understanding. The patient and/or family, caregivers agrees with the plan. Shared decision making: I will have a discussion with the patient and or visitors regarding risk/benefits of further testing or admission. They will be made aware of of t he risk/benefits inherent in this decision they will be given the opportunity to voice understanding. Total critical care time today provided was at least 0 minutes. This excludes separately billable procedures. Critical care time (if documented) is secondary to the patient having high probability of clinically significant/life threatening deterioration in the patient's condition which required my urgent intervention. Impression: 1. Chest pain 2. History of hyperlipidemia 3. History of NSTEMI 4. Tachycardia Dispo: Discharge home This note was generated with [employer] dictation software. It may contain incorrect words, spelling, and punctuation that were not noted in review of the chart prior to signing. Lab Data Labs: Laboratory Results - last 24 hr 02/25/24 02/25/24 02/25/24 11:50 13:58 14:00 WBC 7.0 RBC 5.05 Hgb 15.2 Hct 45.6 MCV 90.3 MCH 30.1 MCHC 33.3 RDW Std Deviation 41.8 RDW Coeff of Tammy 12.7 Plt Count 178 MPV 10.1 Immature Gran % (Auto) 0.600 Neut % (Auto) 68.8 Lymph % (Auto) 20.0 [place] % (Auto) 8.9 Eos % (Auto) 1.0 Baso % (Auto) 0.7 Absolute Neuts (auto) 4.8 Absolute Lymphs (auto) 1.40 Nucleated RBC % 0 PT 13.7 INR 1.1 D-Dimer Quant (PE/DVT) 0.35 Sodium 139 Potassium 4.5 Chloride 104 Carbon Dioxide 26.0 Anion Gap 9 BUN 22 H Creatinine 1.18 Estim Creat Clear Calc 61.35 Est GFR (MDRD) Af Amer 76 Est GFR (MDRD) Non-Af 63 BUN/Creatinine Ratio 18.6 Glucose 252 H Calcium 9.6 Troponin I High Sens 59 76 POC Glucose 161 H 02/25/24 Unknown WBC RBC Hgb Hct MCV MCH MCHC RDW Std Deviation RDW Coeff of Tammy Plt Count MPV Immature Gran % (Auto) Neut % (Auto) Lymph % (Auto) [place] % (Auto) Eos % (Auto) Baso % (Auto) Absolute Neuts (auto) Absolute Lymphs (auto) Nucleated RBC % PT INR D-Dimer Quant (PE/DVT) Sodium Potassium Chloride Carbon Dioxide Anion Gap BUN Creatinine Estim Creat Clear Calc Est GFR (MDRD) Af Amer Est GFR (MDRD) Non-Af BUN/Creatinine Ratio Glucose Calcium Troponin I High Sens Cancelled POC Glucose Radiography Diagnostic Testing: Clinical Impression(s) from Imaging Studies Chest X-Ray 02/25/24 11:55 IMPRESSION: No radiographic evidence of acute cardiopulmonary disease. Electronically Signed: Maxx Sarah MD at 12:19 EDT , Discharge Plan Triage Chief Complaint: Chest Pain ED Provider: Ko Castrejon Dx/Rx/DC Orders Instructions: Chest Pain [facility] Prescriptions: No Action atorvastatin 20 MG tablet 20 mg PO DAILY losartan 100 MG tablet 100 mg PO DAILY multivitamin Tablet 1 tab PO DAILY cyanocobalamin (vitamin B-12) 100 mcg Tablet 100 mcg PO DAILY fluticasone propionate 50 mcg/actuation [place],Suspension 1 spray INTRANASAL DAILY glipizide 5 mg tablet 5 mg PO DAILY omega-3 fatty acids Capsule 1,000 mg PO DAILY cholecalciferol (vitamin D3) [Vitamin D3] 50 mcg (2,000 unit) Tablet 100 mcg PO DAILY metformin 500 mg tablet 1,000 mg PO BID metoprolol succinate 25 mg tablet extended release 24 hr 25 mg PO DAILY aspirin 81 mg Tablet,Chewable 81 mg PO BREAKFAST Qty: 30 2RF nitroglycerin 0.4 mg tablet, sublingual 0.4 mg sublingual Q5M PRN (Reason: chest pain) montelukast 10 mg tablet 10 mg PO DAILY prednisone 50 mg tablet 50 mg PO DAILY omeprazole 20 mg capsule,delayed release(DR/EC) 20 mg PO DAILY clopidogrel [Plavix] 75 mg tablet 75 mg PO DAILY Qty: 30 1RF Rx Instructions: start 02/16/24 Primary Care Provider: Daljit Cook Referrals: Daljit Cook MD [Primary Care Provider] - Activity Restrictions/Additional Instructions: Thank you for trusting us with your care today! Please take Tylenol (2 pills, 650 mg), ibuprofen (2 pills, 400 mg) every 6 hours as needed for pain and fever control. Please return to the emergency department if your symptoms change or worsen. Please follow with Cardiology for further outpatient evaluation and management. Print Language: Malay Disposition Disposition: Home, Self Care Discharge Date/Time: 02/25/24 16:07
[2024-02-25 12:42] LABS: D-Dimer Quantitative (DVT/PE) 0.35 FEU/ug/m (0.27-0.49)
[2024-02-25 12:48] VITALS: BP 162/75; PULSE 102; RESP 14; O2SAT 99
[2024-02-25 13:00] VITALS: BP 162/75; PULSE 125; RESP 19; O2SAT 99
[2024-02-25 13:54] LABS: Reflex Troponin-HS? (from REC) Y
[2024-02-25 14:00] VITALS: BP 135/80; PULSE 70; RESP 16; O2SAT 96
[2024-02-25 14:15] LABS: Bedside Glucose 161 mg/dL (74-106)
[2024-02-25 14:32] LABS: Troponin-I HS 76 pg/mL (3.0-78.0)
[2024-02-25 15:00] VITALS: BP 134/85; PULSE 70; RESP 18; O2SAT 97
[2024-02-25 16:06] VITALS: BP 150/89; PULSE 68; RESP 18; TEMP 36.6; O2SAT 98
== END 2024-02-25 16:07 | disposition home or self-care (01) ==
PROVIDERS: Emergency Provider Emergency Medicine; PCP Family Medicine; Visit Provider Emergency Medicine
DX: R07.9 Chest pain, unspecified (principal); I48.0 Paroxysmal atrial fibrillation; E11.9 Type 2 diabetes mellitus without complications; E78.00 Pure hypercholesterolemia, unspecified; R00.0 Tachycardia, unspecified; I10 Essential (primary) hypertension; I45.10 Unspecified right bundle-branch block; Z87.891 Personal history of nicotine dependence; Z95.2 Presence of prosthetic heart valve
CPT/HCPCS: 71045; 80048; 82962; 84484; 85025; 85379; 85610; 93005; 99284; A4216

== ENCOUNTER 2024-04-16 12:46 | Emergency (ER) | payer OTHER, SELFPAY ==
[2024-04-16 12:47] VITALS: BP 206/105; PULSE 118; RESP 18; TEMP 36.3; O2SAT 98; BMI 30.7
--- NOTE | 2024-04-16 14:13 | EKG12_ITS ---
Test Reason : CP Blood Pressure : */* mmHG Vent. Rate : 118 BPM Atrial Rate : 118 BPM P-R Int : 180 ms QRS Dur : 136 ms QT Int : 358 ms P-R-T Axes : * 209 44 degrees QTcB Int : 501 ms Sinus tachycardia Right bundle branch block Abnormal ECG Confirmed by IRVING HASTINGS, YOANA ([id number]), editorial specialist KINGA GOODE ([id number]) on 04/18/2024 8:13:38 AM Referred By: Ganesh Mireles Confirmed By: YOANA VILLATORO MD
[2024-04-16 14:29] LABS: Absolute Lymphocyte Count 0.96 X10^3/uL (0.83-4.51); Absolute Neutrophil Count 3.7 X10^3/uL (2.0-7.7); Basophil# 0.05 X10^3/uL; Basophil% 0.9 % (0-1); Eosinophil# 0.07 X10^3/uL; Eosinophils% 1.3 % (0-5); Hematocrit 42.6 % (40-54); Hemoglobin 14.1 g/dL (13.0-16.5); Lymphocyte # 0.96 X10^3/ul (0.83-4.51); Lymphocyte % 18.1 % (19-41); Mean Corp Hgb Conc 33.1 g/dL (32-36); Mean Corpuscular Hgb 29.7 pg (27.0-32.0); Mean Corpuscular Volume 89.7 fL (80-94); Mean Platelet Vol. 10.2 fl (6.2-12.0); Monocyte# 0.54 X10^3/uL; Monocyte% 10.2 % (0-10); NRBC Flagged by Analyzer 0 % (0-5); Neutrophil # 3.65 X10^3/uL (2.7-7.7); Neutrophil % 68.7 % (47-70); Platelet Count 173 K/mm3 (150-450); RBC Distribution Width CV 12.9 % (11.6-14.6); RBC Distribution Width SD 42.5 fl (35.1-43.9); Red Blood Count 4.75 M/mm3 (4.6-6.2); White Blood Count 5.3 K/mm3 (4.4-11.0)
[2024-04-16 14:38] LABS: Anion Gap 7 (5-15); BUN 15 mg/dL (7-18); BUN/Creat Ratio 12.5 RATIO (10-20); Calcium,Total 9.2 mg/dL (8.5-10.1); Chloride 104 mmol/L (98-107); EST Glomerular Filtration Rate 62 mL/min (>60); Est Glom Filt Rate - Afr Amer 75 mL/min (>60); Glucose 181 mg/dL (74-106); Sodium Level 139 mmol/L (136-145)
--- NOTE | 2024-04-16 14:41 | EX.ED.DYSGE1 ---
HPI History of Present Illness Chief Complaint: Abn Labs Narrative Narrative: Sent in by PCP office after follow-up yesterday for hypertension EKG concerning for A-fib that was rate controlled at 93. He was told to go to the hospital for anticoagulants. He went there and was out of his metoprolol for 3 days. He was restarted on it. Denies lightheadedness chest pains chest heaviness palpitations or racing heart. It is unclear if he ever had A-fib however on his paperwork he had A-fib July 2022. He does not recall being diagnosed with this. Later discussion after evaluate records note he was A-fib RVR febrile 2022 he had outpatient evaluation that had A-fib with planned cardioversion. He was hospitalized for strokelike symptoms with a negative workup. He was on Eliquis in July 2022. More discussion his concerns of the medication was due to finances. [facility] Medical History History of recent stroke CVA (cerebral vascular accident) Atrial fibrillation Diabetes Hypertension High cholesterol COVID Hyperlipidemia Type 2 diabetes mellitus Benign hypertension Home Medications ?Medication ?Instructions ?Recorded ?Last Taken ?Type atorvastatin 20 mg tablet 20 mg PO DAILY cholesterol 03/21/16 10/18/23 History losartan 100 mg tablet 100 mg PO DAILY BP 05/01/17 10/19/23 History cholecalciferol (vitamin D3) 50 100 mcg PO DAILY supplement 07/23/22 10/19/23 History mcg (2,000 unit) tablet (Vitamin D3) cyanocobalamin (vitamin B-12) 100 100 mcg PO DAILY supplement 07/23/22 10/19/23 History mcg tablet fluticasone propionate 50 1 spray intranasal DAILY sinus 07/23/22 10/16/23 History mcg/actuation nasal spray,suspension glipizide 5 mg tablet 5 mg PO DAILY diabetes 07/23/22 10/19/23 History multivitamin 1 tab PO DAILY health maintenance 07/23/22 10/19/23 History omega-3 fatty acids 1,000 mg PO DAILY health 07/23/22 10/19/23 History maintenance metformin 500 mg tablet 1,000 mg PO BID diabetes 10/19/23 10/19/23 History metoprolol succinate 25 mg 25 mg PO DAILY heart 10/19/23 10/19/23 History tablet,extended release 24 hr aspirin 81 mg chewable tablet 81 mg PO BREAKFAST heart health 10/20/23 Unknown Rx #30 tabs montelukast 10 mg tablet 10 mg PO DAILY allergies 02/15/24 Unknown History nitroglycerin 0.4 mg sublingual 0.4 mg sublingual Q5M PRN chest 02/15/24 Unknown History tablet pain omeprazole 20 mg capsule,delayed 20 mg PO DAILY acid reflux 02/15/24 Unknown History release prednisone 50 mg tablet 50 mg PO DAILY steroid 02/15/24 Unknown History clopidogrel 75 mg tablet (Plavix) 75 mg PO DAILY #30 tabs 02/16/24 Unknown Rx apixaban 5 mg tablet (Eliquis) 5 mg PO BID #74 tabs 04/16/24 Unknown Rx warfarin 5 mg tablet 5 mg PO DAILY #30 tabs 04/16/24 Unknown Rx Allergy/AdvReac Type Severity Reaction Status Date / Time No Known Allergies Allergy Verified 04/16/24 12:47 Surgical History Heart valve replaced Social History housing: house Smoking Status: Former smoker ROS ROS ED Constitutional Constitutional ED: Denies chills, fever(s) or sweats Eyes Eyes: Denies change in vision ENT ENT ED: Denies dysphagia or sore throat Cardiovascular Cardiovascular: Denies chest pain, leg edema, palpitations or racing heartbeat Respiratory/Chest Respiratory/Chest: Denies cough, dyspnea or dyspnea on exertion Gastrointestinal Gastrointestinal: Denies abdominal pain, diarrhea, nausea or vomiting Genitourinary Genitourinary ED: Denies dysuria, hematuria or urinary frequency Musculoskeletal Musculoskeletal: Denies back pain, extremity pain or neck pain Integumentary Denies rash or wounds Neurologic Neurologic: Denies headache(s), paresthesias or weakness EXAM Physical Exam Const Vital Signs: 04/16/24 12:47 04/16/24 14:47 Temperature 97.3 F L Temperature Source Temporal Pulse Rate 118 H 88 Respiratory Rate 18 23 H Blood Pressure 206/105 H 171/79 H Blood Pressure Mean 138 109 Pulse Ox 98 Oxygen Delivery Method Room Air Positive well nourished and well developed General Appearance ED: well developed and NAD HEENT Reports moist mucous membranes normocephalic and atraumatic Eyes EOMs intact bilaterally and conjunctivae normal General Eye ED: Yes normal appearance of both eyes Neck no lymphadenopathy and supple General: Negative for tenderness Chest Wall Chest: Negative for tenderness Resp normal respiratory effort and normal air movement Effort and Inspection: symmetric chest movement; Negative for respiratory distress Cardio regular rate, regular rhythm and no murmurs Peripheral Pulses: pulses 2+ throughout GI normal to inspection, nondistended, normoactive bowel sounds and non-tender Palpation: Negative for guarding or rebound tenderness present Back/Spine no CVA tenderness and no thoracic nor lumbar tenderness Extremity normal to inspection General Extremety ED: Negative for edema or tenderness General Extremity: Negative for edema Neuro oriented x3 and no sensory deficits noted Sensorium / Orientation: awake and alert Skin no rashes or lesions noted and no wounds MDM MDM MDM Narrative Medical decision making narrative: Interventions / MDM: Differential diagnosis: Paroxysmal A-fib, elevated blood pressure, right bundle branch block Diagnosis considered but do not suspect: No clinical hypertensive emergency My EKG interpretation: Sinus tachycardia rate of 118 right bundle branch block. No ST changes. Imaging independently reviewed and interpreted by myself: N/A External documents reviewed: Records reviewed July 2022 he was admitted for potential strokelike symptoms he had recent A-fib at time he is on Eliquis. He had a SERA due to growth on a valve that was ruled out for any clots. He was told to continue Eliquis at that time. Since that time there has been visits to the hospital where I did not see Eliquis on his med list. Test considered but not ordered:N/A ED course: Patient asymptomatic paroxysmal A-fib. On the monitor heart rate in the 90s. He is on metoprolol. Blood pressure elevated on arrival however is back down. Laboratory studies were sent for evaluation for his GFR. 1530: Heart rate controlled during my examination and remain controlled. Intermittent paroxysmal A-fib on the monitor. Blood pressure trended down 170/79. No headaches or chest pains or dyspnea. Creatinine 1.2 GFR of 62. Hemoglobin 14. After evaluation of records discussed he was on Eliquis last year he had concerns for financial cost of the medication. I discussed stroke risk for which she did not understand. I discussed possibly using month supply of Eliquis to bridge warfarin for which she was willing to do. I spoke with his PCP Dr. Joyce for this plan. He agrees. Patient will follow-up next week for INR checks. Patient stable with rate control therefore does not require hospitalization. Re-evaluation: stable Disposition discussed with patient/family/significant other: Patient and significant other Case discussed with consulting clinician: PCP This note was generated with [facility] dictation software. It may contain incorrect words, spelling, and punctuation that were not noted in checking the note before signing. Lab Data Labs: Laboratory Results - last 24 hr 04/16/24 13:14 WBC 5.3 RBC 4.75 Hgb 14.1 Hct 42.6 MCV 89.7 MCH 29.7 MCHC 33.1 RDW Std Deviation 42.5 RDW Coeff of Tammy 12.9 Plt Count 173 MPV 10.2 Immature Gran % (Auto) 0.800 Neut % (Auto) 68.7 Lymph % (Auto) 18.1 L [place] % (Auto) 10.2 H Eos % (Auto) 1.3 Baso % (Auto) 0.9 Absolute Neuts (auto) 3.7 Absolute Lymphs (auto) 0.96 Nucleated RBC % 0 Sodium 139 Potassium 4.0 Chloride 104 Carbon Dioxide 28.0 Anion Gap 7 BUN 15 Creatinine 1.20 Estim Creat Clear Calc 60.90 Est GFR (MDRD) Af Amer 75 Est GFR (MDRD) Non-Af 62 BUN/Creatinine Ratio 12.5 Glucose 181 H Calcium 9.2 Discharge Plan Triage Chief Complaint: Abn Labs ED Provider: Ganesh Mireles Dx/Rx/DC Orders Clinical Impression: AF (paroxysmal atrial fibrillation), Hypertension, RBBB Instructions: ED AFIB Prescriptions: New Eliquis 5 mg tablet 5 mg PO BID Qty: 74 0RF warfarin 5 mg tablet 5 mg PO DAILY Qty: 30 0RF No Action atorvastatin 20 MG tablet 20 mg PO DAILY losartan 100 MG tablet 100 mg PO DAILY multivitamin Tablet 1 tab PO DAILY cyanocobalamin (vitamin B-12) 100 mcg Tablet 100 mcg PO DAILY fluticasone propionate 50 mcg/actuation [place],Suspension 1 spray INTRANASAL DAILY glipizide 5 mg tablet 5 mg PO DAILY omega-3 fatty acids Capsule 1,000 mg PO DAILY cholecalciferol (vitamin D3) [Vitamin D3] 50 mcg (2,000 unit) Tablet 100 mcg PO DAILY metformin 500 mg tablet 1,000 mg PO BID metoprolol succinate 25 mg tablet extended release 24 hr 25 mg PO DAILY aspirin 81 mg Tablet,Chewable 81 mg PO BREAKFAST Qty: 30 2RF nitroglycerin 0.4 mg tablet, sublingual 0.4 mg sublingual Q5M PRN (Reason: chest pain) montelukast 10 mg tablet 10 mg PO DAILY prednisone 50 mg tablet 50 mg PO DAILY omeprazole 20 mg capsule,delayed release(DR/EC) 20 mg PO DAILY clopidogrel [Plavix] 75 mg tablet 75 mg PO DAILY Qty: 30 1RF Rx Instructions: start 02/16/24 Primary Care Provider: Daljit Cook Referrals: Daljit Cook MD [Primary Care Provider] - 5-7 Days Activity Restrictions/Additional Instructions: Noting paroxysmal A-fib you are rate controlled. Continue metoprolol. First dose Eliquis and warfarin started in the ED. Continue Eliquis twice a day and warfarin daily. Using Eliquis to bridge your warfarin until therapeutic. I discussed with Dr. Cook. Follow-up with Dr. Cook in the next week for INR check. Print Language: Indonesian Disposition Disposition: Home, Self Care
[2024-04-16 14:47] VITALS: BP 171/79; PULSE 88; RESP 23
[2024-04-16] MEDS: APIXABAN 5 MG TABLET PO (15:54)
[2024-04-16 16:09] LABS: International Normalized Ratio 1.1; Prothrombin Time (Protime)PT. 13.9 SECONDS (11.7-14.9)
== END 2024-04-16 15:57 | disposition home or self-care (01) ==
PROVIDERS: Emergency Provider Emergency Medicine; PCP Family Medicine; Referring Provider Emergency Medicine; Visit Provider Emergency Medicine
DX: I48.0 Paroxysmal atrial fibrillation (principal); E11.9 Type 2 diabetes mellitus without complications; I10 Essential (primary) hypertension; I45.10 Unspecified right bundle-branch block; E78.00 Pure hypercholesterolemia, unspecified; Z95.2 Presence of prosthetic heart valve; Z86.73 Personal history of transient ischemic attack (TIA), and cerebral infarction without residual deficits; Z79.84 Long term (current) use of oral hypoglycemic drugs; Z79.82 Long term (current) use of aspirin; Z79.899 Other long term (current) drug therapy; Z87.891 Personal history of nicotine dependence
CPT/HCPCS: 80048; 85025; 85610; 93005; 99284; A4216

== ENCOUNTER 2024-07-01 19:17 | Emergency (ER) | payer OTHER, SELFPAY ==
[2024-07-01] VITALS (7 sets, daily range): BP systolic 156–205; BP diastolic 75–110; PULSE 63–97; RESP 14–27; TEMP 36.6; O2SAT 94–96; BMI 299.6
--- NOTE | 2024-07-01 19:40 | RAD_ITS ---
STUDY: X-RAY CHEST REASON FOR EXAM: Male, 78 years old. chest pain TECHNIQUE: PA and lateral COMPARISON: February 25, 2024. FINDINGS: The lungs are clear and expanded. There is no demonstrated pleural abnormality. Normal size heart. Normal mediastinum and power. Normal visualized pulmonary arteries. Mildly calcified aortic arch and descending thoracic aorta. 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 Normal visualized ribs, clavicles, and shoulders. There is no demonstrated abnormality of the visualized soft tissue structures of the upper abdomen. RAD/Chest PA and Lateral IMPRESSION: ASHD. No acute cardiopulmonary pathology Electronically Signed: Aguila Marin MD at 20:14 EST ,
[2024-07-01 19:44] LABS: Absolute Lymphocyte Count 1.08 X10^3/uL (0.83-4.51); Absolute Neutrophil Count 4.4 X10^3/uL (2.0-7.7); Basophil# 0.04 X10^3/uL; Basophil% 0.6 % (0-1); Eosinophil# 0.06 X10^3/uL; Hematocrit 40.2 % (40-54); Hemoglobin 13.5 g/dL (13.0-16.5); Lymphocyte # 1.08 X10^3/ul (0.83-4.51); Lymphocyte % 17.5 % (19-41); Mean Corp Hgb Conc 33.6 g/dL (32-36); Mean Corpuscular Hgb 29.8 pg (27.0-32.0); Mean Corpuscular Volume 88.7 fL (80-94); Mean Platelet Vol. 9.5 fl (6.2-12.0); Monocyte# 0.56 X10^3/uL; Monocyte% 9.1 % (0-10); NRBC Flagged by Analyzer 0 % (0-5); Neutrophil # 4.39 X10^3/uL (2.7-7.7); Neutrophil % 71.3 % (47-70); Platelet Count 151 K/mm3 (150-450); RBC Distribution Width CV 13.3 % (11.6-14.6); RBC Distribution Width SD 43.4 fl (35.1-43.9); Red Blood Count 4.53 M/mm3 (4.6-6.2); White Blood Count 6.2 K/mm3 (4.4-11.0)
[2024-07-01 19:57] LABS: International Normalized Ratio 1.1; Prothrombin Time (Protime)PT. 14.5 SECONDS (11.7-14.9)
[2024-07-01 19:58] LABS: Partial Thromboplast Time 30.3 Seconds (24.1-36.2)
[2024-07-01 20:05] LABS: Anion Gap 7 (5-15); BUN 17 mg/dL (7-18); BUN/Creat Ratio 14.9 RATIO (10-20); Calcium,Total 9.3 mg/dL (8.5-10.1); Chloride 108 mmol/L (98-107); Creatinine, Serum 1.14 mg/dL (0.70-1.30); EST Glomerular Filtration Rate 66 mL/min (>60); Est Glom Filt Rate - Afr Amer 79 mL/min (>60); Estimated Creatinine Clearance 327.11 ml/min; Glucose 126 mg/dL (74-106); Sodium Level 140 mmol/L (136-145); Troponin-I HS (w/2H Reflex) 20 pg/mL (3.0-78.0)
--- NOTE | 2024-07-01 20:34 | EX.ED.DYSGE1 ---
HPI History of Present Illness Chief Complaint: Chest Pain Narrative Narrative: Patient is a 78-year-old male past medical history of CVA, atrial fibrillation on Eliquis, hypertension, hypercholesteremia, type 2 diabetes who presents to the emergency department with a chief complaint of chest pain. Patient states that they went to the grocery store and on his way home he started to develop some pain in his chest. He states that this remained consistent while putting away groceries did not get worse or better therefore he came here further evaluation management. He states that the pain did not radiate anywhere. He states he has been compliant with his Eliquis not missing doses. He states that he had a stress test several years ago but nothing since. Patient denies any smoking, alcohol use, drug use [facility] Medical History History of recent stroke CVA (cerebral vascular accident) Atrial fibrillation Diabetes Hypertension High cholesterol COVID Hyperlipidemia Type 2 diabetes mellitus Benign hypertension Home Medications ?Medication ?Instructions ?Recorded ?Last Taken ?Type atorvastatin 20 mg tablet 20 mg PO DAILY cholesterol 03/21/16 10/18/23 History losartan 100 mg tablet 100 mg PO DAILY BP 05/01/17 10/19/23 History cholecalciferol (vitamin D3) 50 100 mcg PO DAILY supplement 07/23/22 10/19/23 History mcg (2,000 unit) tablet (Vitamin D3) cyanocobalamin (vitamin B-12) 100 100 mcg PO DAILY supplement 07/23/22 10/19/23 History mcg tablet fluticasone propionate 50 1 spray intranasal DAILY sinus 07/23/22 10/16/23 History mcg/actuation nasal spray,suspension glipizide 5 mg tablet 5 mg PO DAILY diabetes 07/23/22 10/19/23 History multivitamin 1 tab PO DAILY health maintenance 07/23/22 10/19/23 History omega-3 fatty acids 1,000 mg PO DAILY health 07/23/22 10/19/23 History maintenance metformin 500 mg tablet 1,000 mg PO BID diabetes 10/19/23 10/19/23 History metoprolol succinate 25 mg 25 mg PO DAILY heart 10/19/23 10/19/23 History tablet,extended release 24 hr aspirin 81 mg chewable tablet 81 mg PO BREAKFAST [facility] 10/20/23 Unknown Rx #30 tabs montelukast 10 mg tablet 10 mg PO DAILY allergies 02/15/24 Unknown History nitroglycerin 0.4 mg sublingual 0.4 mg sublingual Q5M PRN chest 02/15/24 Unknown History tablet pain omeprazole 20 mg capsule,delayed 20 mg PO DAILY acid reflux 02/15/24 Unknown History release prednisone 50 mg tablet 50 mg PO DAILY steroid 02/15/24 Unknown History clopidogrel 75 mg tablet (Plavix) 75 mg PO DAILY #30 tabs 02/16/24 Unknown Rx apixaban 5 mg tablet (Eliquis) 5 mg PO BID #74 tabs 04/16/24 Unknown Rx warfarin 5 mg tablet 5 mg PO DAILY #30 tabs 04/16/24 Unknown Rx Allergy/AdvReac Type Severity Reaction Status Date / Time No Known Allergies Allergy Verified 07/01/24 19:26 Surgical History Heart valve replaced Social History housing: house Smoking Status: Former smoker ROS ROS ED ROS Narrative Constitutional: Denies any fevers, chills, headaches, lightness, dizziness Eyes: Denies change in vision double vision blurry vision Cardiovascular: Complains of chest pain as noted above denies palpitations Respiratory: Denies coughing wheezing shortness of breath Abdomen: Denies abdominal pain nausea vomit diarrhea : Denies any urinary symptoms Neurological: Denies any numbness, weakness, tingling Musculoskeletal: Denies back pain Skin: Denies any rashes or lesions EXAM Physical Exam Narrative Exam Narrative: General: Patient lying in bed rest comfortably did not appear to be in acute distress Head: Atraumatic, normocephalic Eyes: PERRL bilaterally, EOMI bilateral no conjunctival injection noted Neck: Soft, supple, trachea midline Cardiovascular: Regular in rhythm no murmurs gallops rubs noted Respiratory: Clear to auscultation bilaterally no rales rhonchi or wheezes noted Abdomen: Soft, nondistended, nontender to palpation Extremities: +5/5 strength noted in the bilateral upper and lower extremities, radial pulses +2/4 in the bilateral upper extremities, no pedal edema on exam Neurological: Patient follow commands knew that he was at [facility] year is 2025 Skin: Warm, dry, intact no rashes or lesions noted Const Vital Signs: 07/01/24 19:18 07/01/24 19:27 07/01/24 20:18 Temperature 97.9 F Temperature Source Oral Pulse Rate 97 82 Respiratory Rate 27 H 18 Respiratory Effort Normal Respiratory Pattern Normal Blood Pressure 172/75 H 181/78 H Blood Pressure Mean 107 112 Pulse Ox 96 96 Oxygen Delivery Method Room Air Room Air 07/01/24 21:00 07/01/24 21:45 07/01/24 21:55 Temperature Temperature Source Pulse Rate 78 86 81 Respiratory Rate 14 20 H 15 Respiratory Effort Respiratory Pattern Blood Pressure 203/105 H 203/105 H 205/110 H Blood Pressure Mean 137 137 141 Pulse Ox 95 94 96 Oxygen Delivery Method Room Air Room Air Room Air 07/01/24 23:00 Temperature Temperature Source Pulse Rate 63 Respiratory Rate 18 Respiratory Effort Respiratory Pattern Blood Pressure 156/92 H Blood Pressure Mean 113 Pulse Ox 95 Oxygen Delivery Method Room Air MDM MDM MDM Narrative Medical decision making narrative: Patient is a 78-year-old male who presented to the emergency department the chief complaint of chest pain. On the differential diagnose includes but not limited to ACS, pneumonia, stress, PE although feel this less likely is chronically anticoagulated on Eliquis not missing doses.. Once workup is obtained reviewed he will be reevaluated. Patient states that he has been under a lot of stress lately. Patient was noted to be hypertensive here in the emergency department systolic in the 200s he was given 0.2 mg clonidine. Patient's EKG was reviewed and independently interpreted by myself showed a atrial fibrillation with a rate of 97 bpm with evidence of right bundle branch block. Patient CBC was reviewed and showed no evidence leukocytosis white blood count normal at 6.2, hemoglobin 13.5, plate count was noted be 151, INR of 1.1, PT of 14.5. Patient sodium normal at 140, potassium was 4, creatinine normal at 1.14. Patient's troponin was normal at 20 with a delta troponin obtained at 23. Patient's chest x-ray reviewed by myself and by radiology showed no acute cardiopulmonary processes. On reevaluation the patient is blood pressure is improved to a systolic of 156/92. He does feel much improved and would like to go home. Will call and discussed case with cardiology. Did call and discussed case with on-call research professional Dr. Del Angel who states that the patient can be discharged home and follow-up with his primary care physician outpatient setting. I did discuss this with the patient at bedside advised him to keep a close eye on his blood pressure and keep blood pressure log 2-3 times a day and write this down and take it with him to his physician's office to see if he needs a medication adjustment. Once again that he was advised to return with worsening symptoms or other concerns. All question concerns answered is discharged home in stable condition family member at bedside is agreeable to plan as well. Lab Data Labs: Laboratory Results - last 24 hr 07/01/24 07/01/24 19:37 21:45 WBC 6.2 RBC 4.53 L Hgb 13.5 Hct 40.2 MCV 88.7 MCH 29.8 MCHC 33.6 RDW Std Deviation 43.4 RDW Coeff of Tammy 13.3 Plt Count 151 MPV 9.5 Immature Gran % (Auto) 0.500 Neut % (Auto) 71.3 H Lymph % (Auto) 17.5 L [place] % (Auto) 9.1 Eos % (Auto) 1.0 Baso % (Auto) 0.6 Absolute Neuts (auto) 4.4 Absolute Lymphs (auto) 1.08 Nucleated RBC % 0 PT 14.5 INR 1.1 APTT 30.3 Sodium 140 Potassium 4.0 Chloride 108 H Carbon Dioxide 26.0 Anion Gap 7 BUN 17 Creatinine 1.14 Estim Creat Clear Calc 327.11 Est GFR (MDRD) Af Amer 79 Est GFR (MDRD) Non-Af 66 BUN/Creatinine Ratio 14.9 Glucose 126 H Calcium 9.3 Troponin I High Sens 20 23 Radiography Diagnostic Testing: Clinical Impression(s) from Imaging Studies Chest X-Ray 07/01/24 19:40 IMPRESSION: ASHD. No acute cardiopulmonary pathology Electronically Signed: Aguila Marin MD at 20:14 EST , Discharge Plan Triage Chief Complaint: Chest Pain ED Provider: Chas Cook Dx/Rx/DC Orders Clinical Impression: Chest pain Prescriptions: No Action atorvastatin 20 MG tablet 20 mg PO DAILY losartan 100 MG tablet 100 mg PO DAILY multivitamin Tablet 1 tab PO DAILY cyanocobalamin (vitamin B-12) 100 mcg Tablet 100 mcg PO DAILY fluticasone propionate 50 mcg/actuation [place],Suspension 1 spray INTRANASAL DAILY glipizide 5 mg tablet 5 mg PO DAILY omega-3 fatty acids Capsule 1,000 mg PO DAILY cholecalciferol (vitamin D3) [Vitamin D3] 50 mcg (2,000 unit) Tablet 100 mcg PO DAILY metformin 500 mg tablet 1,000 mg PO BID metoprolol succinate 25 mg tablet extended release 24 hr 25 mg PO DAILY aspirin 81 mg Tablet,Chewable 81 mg PO BREAKFAST Qty: 30 2RF nitroglycerin 0.4 mg tablet, sublingual 0.4 mg sublingual Q5M PRN (Reason: chest pain) montelukast 10 mg tablet 10 mg PO DAILY prednisone 50 mg tablet 50 mg PO DAILY omeprazole 20 mg capsule,delayed release(DR/EC) 20 mg PO DAILY clopidogrel [Plavix] 75 mg tablet 75 mg PO DAILY Qty: 30 1RF Rx Instructions: start 02/16/24 Eliquis 5 mg tablet 5 mg PO BID Qty: 74 0RF warfarin 5 mg tablet 5 mg PO DAILY Qty: 30 0RF Primary Care Provider: Daljit Cook Referrals: Daljit Cook MD [Primary Care Provider] - Activity Restrictions/Additional Instructions: Keep a close eye on your blood pressure take your blood pressure randomly 2-3 times a day write this down on a piece of paper and take this to your physician's office to see if you need any blood pressure medication adjustments. Return with worsening symptoms or concerns. Take your daily medications as prescribed. Print Language: Maltese Disposition Disposition: Home, Self Care
[2024-07-01 21:41] LABS: Reflex Troponin-HS? (from REC) Y
[2024-07-01] MEDS: cloNIDine HCl 0.2 MG Tablet PO (22:15)
[2024-07-01 22:20] LABS: Troponin-I HS 23 pg/mL (3.0-78.0)
== END 2024-07-01 23:29 | disposition home or self-care (01) ==
PROVIDERS: Emergency Provider Emergency Medicine; PCP Family Medicine; Visit Provider Emergency Medicine
DX: R07.9 Chest pain, unspecified (principal); I48.91 Unspecified atrial fibrillation; E11.9 Type 2 diabetes mellitus without complications; I10 Essential (primary) hypertension; I25.10 Atherosclerotic heart disease of native coronary artery without angina pectoris; I45.10 Unspecified right bundle-branch block; E78.00 Pure hypercholesterolemia, unspecified; Z95.2 Presence of prosthetic heart valve; Z86.73 Personal history of transient ischemic attack (TIA), and cerebral infarction without residual deficits; Z79.01 Long term (current) use of anticoagulants; Z79.84 Long term (current) use of oral hypoglycemic drugs; Z79.82 Long term (current) use of aspirin; Z79.899 Other long term (current) drug therapy; Z87.891 Personal history of nicotine dependence
CPT/HCPCS: 71046; 80048; 84484; 85025; 85610; 85730; 93005; 99285; A4216

== ENCOUNTER 2024-07-16 16:22 | Emergency (ER) | payer OTHER, SELFPAY ==
[2024-07-16 16:24] VITALS: BP 162/94; PULSE 77; RESP 16; TEMP 36.8; O2SAT 98; BMI 30.2
[2024-07-16 16:25] VITALS: BP 156/81; PULSE 87; RESP 16; O2SAT 98
--- NOTE | 2024-07-16 17:58 | ED.RN ---
pt. left before seeing a provider at [id number]
== END 2024-07-16 17:39 | disposition left against medical advice (07) ==
LOC: ED 18:07
PROVIDERS: PCP Family Medicine
DX: Z53.21 Procedure and treatment not carried out due to patient leaving prior to being seen by health care provider (principal)

== ENCOUNTER 2024-07-17 12:01 | Emergency (ER) | payer OTHER, SELFPAY ==
[2024-07-17 12:02] VITALS: BP 183/105; PULSE 98; RESP 16; TEMP 36.2; O2SAT 98
[2024-07-17 12:05] VITALS: BMI 30.6
--- NOTE | 2024-07-17 12:06 | EKG12_ITS ---
Test Reason : ARRYTH Blood Pressure : */* mmHG Vent. Rate : 89 BPM Atrial Rate : 111 BPM P-R Int : * ms QRS Dur : 142 ms QT Int : 394 ms P-R-T Axes : 44 212 20 degrees QTcB Int : 479 ms AFIB Right bundle branch block Abnormal ECG Reconfirmed by YOANA VILLATORO MD ([id number]), makeup editor ANDREW LAMA ([id number]) on 07/21/2024 7:40:43 AM Referred By: Confirmed By: YOANA VILLATORO MD
--- NOTE | 2024-07-17 12:10 | RAD_ITS ---
PROCEDURE: CHEST 1 VIEW (PORTABLE) REASON FOR EXAM: Hypertension. TECHNIQUE: Single frontal image including the chest and abdomen. COMPARISON: Chest x-ray of 02/25/2024. RAD/Chest 1 View (Portable) IMPRESSION: Prior sternotomy again noted. A partially calcified aorta is seen. No evidence of cardiomegaly. Lungs appear clear of acute disease, and unchanged. No pleural effusion or pneumothorax is seen. No acute osseous change is evident. Reading Location: [id number]
--- NOTE | 2024-07-17 12:48 | EX.ED.DYSGE1 ---
HPI History of Present Illness Chief Complaint: Hypertension Informant: patient and spouse/S.O. Narrative Narrative: 78-year-old male states he was directed here by his PCPs office because of elevated blood pressures over the last 2 days. He states his systolics have been in the 180s mostly occasionally just over 200. He states today he feels fine, no chest discomfort no dyspnea on exertion, no near-syncope or syncope. No peripheral edema. He states yesterday he was having some chest heaviness but that is gone now. He was referred to cardiology by his PCP because of an abnormal EKG and some type of problem with the heart valve, he states he has been waiting months for this appointment with Dr. Clarke with cardiology, and the appointment is tomorrow morning less than 24 hours away. He is on losartan 100 mg which has not changed for a long time and he is compliant with it. He is on metoprolol succinate, it was increased from 25 to 50 mg a months ago. He states he was here in the ER 2 weeks ago for chest discomfort and elevated blood pressure, he states he was given something while in the emergency department to decrease his pressure but sent home with no medication changes or new prescriptions and has not been able to get an appointment with his primary doctor, and when he called today they sent him back here to the ER. [facility] Medical History History of recent stroke CVA (cerebral vascular accident) Atrial fibrillation Diabetes Hypertension High cholesterol COVID Hyperlipidemia Type 2 diabetes mellitus Benign hypertension Home Medications ?Medication ?Instructions ?Recorded ?Last Taken ?Type atorvastatin 20 mg tablet 20 mg PO DAILY cholesterol 03/21/16 10/18/23 History losartan 100 mg tablet 100 mg PO DAILY BP 05/01/17 10/19/23 History cholecalciferol (vitamin D3) 50 100 mcg PO DAILY supplement 07/23/22 10/19/23 History mcg (2,000 unit) tablet (Vitamin D3) cyanocobalamin (vitamin B-12) 100 100 mcg PO DAILY supplement 07/23/22 10/19/23 History mcg tablet fluticasone propionate 50 1 spray intranasal DAILY sinus 07/23/22 10/16/23 History mcg/actuation nasal spray,suspension glipizide 5 mg tablet 5 mg PO DAILY diabetes 07/23/22 10/19/23 History multivitamin 1 tab PO DAILY health maintenance 07/23/22 10/19/23 History omega-3 fatty acids 1,000 mg PO DAILY health 07/23/22 10/19/23 History maintenance metformin 500 mg tablet 1,000 mg PO BID diabetes 10/19/23 10/19/23 History metoprolol succinate 25 mg 25 mg PO DAILY heart 10/19/23 10/19/23 History tablet,extended release 24 hr aspirin 81 mg chewable tablet 81 mg PO BREAKFAST heart health 10/20/23 Unknown Rx #30 tabs montelukast 10 mg tablet 10 mg PO DAILY allergies 02/15/24 Unknown History nitroglycerin 0.4 mg sublingual 0.4 mg sublingual Q5M PRN chest 02/15/24 Unknown History tablet pain omeprazole 20 mg capsule,delayed 20 mg PO DAILY acid reflux 02/15/24 Unknown History release prednisone 50 mg tablet 50 mg PO DAILY steroid 02/15/24 Unknown History clopidogrel 75 mg tablet (Plavix) 75 mg PO DAILY #30 tabs 02/16/24 Unknown Rx apixaban 5 mg tablet (Eliquis) 5 mg PO BID #74 tabs 04/16/24 Unknown Rx warfarin 5 mg tablet 5 mg PO DAILY #30 tabs 04/16/24 Unknown Rx amlodipine 5 mg tablet 5 mg PO DAILY #30 tabs 07/17/24 Unknown Rx Allergy/AdvReac Type Severity Reaction Status Date / Time No Known Allergies Allergy Verified 07/17/24 12:05 Surgical History Heart valve replaced Social History housing: house Smoking Status: Former smoker ROS ROS ED Constitutional Constitutional ED: Denies chills or fever(s) Eyes Eyes: Denies change in vision or diplopia ENT ENT ED: Denies rhinorrhea or sore throat Cardiovascular Cardiovascular: Reports as per HPI and other Details: Chest discomfort yesterday but none today ; Denies chest pain or palpitations Respiratory/Chest Respiratory/Chest: Denies cough or dyspnea Gastrointestinal Gastrointestinal: Denies abdominal pain, diarrhea, nausea or vomiting Genitourinary Genitourinary ED: Reports other Details: Normal urine output ; Denies dysuria or hematuria Musculoskeletal Musculoskeletal: Denies back pain or neck pain Integumentary Denies abscess or rash Neurologic Neurologic: Denies headache(s), paresthesias or weakness EXAM Physical Exam Const Vital Signs: 07/17/24 12:02 07/17/24 14:01 Temperature 97.2 F L Temperature Source Temporal Pulse Rate 98 Respiratory Rate 16 Blood Pressure 183/105 H 129/71 H Blood Pressure Mean 131 90 Pulse Ox 98 Oxygen Delivery Method Room Air Positive well nourished and well developed General Appearance ED: well developed and NAD HEENT Reports moist mucous membranes normocephalic and atraumatic Eyes PERRL and EOMs intact bilaterally Neck full ROM and supple Resp normal respiratory effort and clear to auscultation bilaterally Cardio no murmurs Rhythm: abnormal rhythm irregularly irregular GI non-tender and non-distended Auscultation: normoactive bowel sounds Palpation: soft Back/Spine no CVA tenderness General Back: other FROM Extremity normal to inspection General Extremety ED: Negative for edema, pulses abnormal or tenderness General Extremity: Negative for edema or pulses abnormal Neuro oriented x3, CN's II-XII intact bilaterally and no sensory deficits noted Sensorium / Orientation: awake and alert Motor Exam: strength 5/5 throughout Skin no rashes or lesions noted and no wounds MDM MDM MDM Narrative Medical decision making narrative: Patient's blood pressure now 183/105, patient is otherwise appearing well within normal exam and he is asymptomatic at this time. While obtaining workup including a troponin since he was having chest heaviness yesterday, gave him a clonidine 0.2 mg. It appears to be losartan is the only antihypertensive he is on in addition to the AV ivan teresa metoprolol succinate 50 mg. I reviewed the patient's lab and his 1 view chest x-ray which on my interpretation shows nothing acute, just chronic changes. His labs are unremarkable renal function normal blood counts normal, troponin within normal limits, this was done because he had chest discomfort yesterday. After having the clonidine his blood pressure on recheck is 129/71. He is not feeling poorly from this. I am giving him a prescription for amlodipine 5 mg daily to add to his losartan, I am fine with the patient taking this to his cardiology appointment and confirming before starting it. Lab Data Attestation: I reviewed the patient's lab results. Labs: Laboratory Results - last 24 hr 07/17/24 07/17/24 12:50 13:55 WBC 5.4 RBC 4.87 Hgb 14.3 Hct 43.4 MCV 89.1 MCH 29.4 MCHC 32.9 RDW Std Deviation 43.5 RDW Coeff of Tammy 13.3 Plt Count 165 MPV 9.2 Immature Gran % (Auto) 0.600 Neut % (Auto) 68.4 Lymph % (Auto) 19.3 [place] % (Auto) 9.8 Eos % (Auto) 1.3 Baso % (Auto) 0.6 Absolute Neuts (auto) 3.7 Absolute Lymphs (auto) 1.05 Nucleated RBC % 0 Sodium 139 Potassium 4.1 Chloride 104 Carbon Dioxide 29.0 Anion Gap 6 BUN 14 Creatinine 1.03 Estim Creat Clear Calc 70.84 Est GFR (MDRD) Af Amer 89 Est GFR (MDRD) Non-Af 74 BUN/Creatinine Ratio 13.6 Glucose 164 H Calcium 9.7 Troponin I High Sens 34 Radiography Diagnostic Testing: Clinical Impression(s) from Imaging Studies Chest X-Ray 07/17/24 12:10 IMPRESSION: Prior sternotomy again noted. A partially calcified aorta is seen. No evidence of cardiomegaly. Lungs appear clear of acute disease, and unchanged. No pleural effusion or pneumothorax is seen. No acute osseous change is evident. Reading Location: [address] Rhythm Strip Rhythm Strip: A-fib Rate: 85 Ectopy: None EKG Initial EKG: Attestation: I personally reviewed and interpreted this EKG as follows: Interpretation: No Acute Injury Pattern, Atrial Fibrillation and RBBB Prior EKG tracings: available for review Prior: Unchanged Discharge Plan Triage Chief Complaint: Hypertension ED Provider: Jose Watson Dx/Rx/DC Orders Clinical Impression: Accelerated hypertension, Atrial fibrillation, Chest pain, unspecified Instructions: ED High Blood Pressure Hypertension Prescriptions: New amlodipine 5 mg tablet 5 mg PO DAILY Qty: 30 0RF No Action atorvastatin 20 MG tablet 20 mg PO DAILY losartan 100 MG tablet 100 mg PO DAILY multivitamin Tablet 1 tab PO DAILY cyanocobalamin (vitamin B-12) 100 mcg Tablet 100 mcg PO DAILY fluticasone propionate 50 mcg/actuation [place],Suspension 1 spray INTRANASAL DAILY glipizide 5 mg tablet 5 mg PO DAILY omega-3 fatty acids Capsule 1,000 mg PO DAILY cholecalciferol (vitamin D3) [Vitamin D3] 50 mcg (2,000 unit) Tablet 100 mcg PO DAILY metformin 500 mg tablet 1,000 mg PO BID metoprolol succinate 25 mg tablet extended release 24 hr 25 mg PO DAILY aspirin 81 mg Tablet,Chewable 81 mg PO BREAKFAST Qty: 30 2RF nitroglycerin 0.4 mg tablet, sublingual 0.4 mg sublingual Q5M PRN (Reason: chest pain) montelukast 10 mg tablet 10 mg PO DAILY prednisone 50 mg tablet 50 mg PO DAILY omeprazole 20 mg capsule,delayed release(DR/EC) 20 mg PO DAILY clopidogrel [Plavix] 75 mg tablet 75 mg PO DAILY Qty: 30 1RF Rx Instructions: start 02/16/24 Eliquis 5 mg tablet 5 mg PO BID Qty: 74 0RF warfarin 5 mg tablet 5 mg PO DAILY Qty: 30 0RF Primary Care Provider: Daljit Cook Referrals: Mitch Clarke MD [Non-Staff] - Keep Edmund appointment Daljit Cook MD [Primary Care Provider] - Print Language: Tajik Disposition Disposition: Home, Self Care
[2024-07-17 13:03] LABS: Absolute Lymphocyte Count 1.05 X10^3/uL (0.83-4.51); Absolute Neutrophil Count 3.7 X10^3/uL (2.0-7.7); Basophil# 0.03 X10^3/uL; Basophil% 0.6 % (0-1); Eosinophil# 0.07 X10^3/uL; Eosinophils% 1.3 % (0-5); Hematocrit 43.4 % (40-54); Hemoglobin 14.3 g/dL (13.0-16.5); Lymphocyte # 1.05 X10^3/ul (0.83-4.51); Lymphocyte % 19.3 % (19-41); Mean Corp Hgb Conc 32.9 g/dL (32-36); Mean Corpuscular Hgb 29.4 pg (27.0-32.0); Mean Corpuscular Volume 89.1 fL (80-94); Mean Platelet Vol. 9.2 fl (6.2-12.0); Monocyte# 0.53 X10^3/uL; Monocyte% 9.8 % (0-10); NRBC Flagged by Analyzer 0 % (0-5); Neutrophil # 3.72 X10^3/uL (2.7-7.7); Neutrophil % 68.4 % (47-70); Platelet Count 165 K/mm3 (150-450); RBC Distribution Width CV 13.3 % (11.6-14.6); RBC Distribution Width SD 43.5 fl (35.1-43.9); Red Blood Count 4.87 M/mm3 (4.6-6.2); White Blood Count 5.4 K/mm3 (4.4-11.0)
[2024-07-17 13:21] LABS: Anion Gap 6 (5-15); BUN 14 mg/dL (7-18); BUN/Creat Ratio 13.6 RATIO (10-20); Calcium,Total 9.7 mg/dL (8.5-10.1); Chloride 104 mmol/L (98-107); Creatinine, Serum 1.03 mg/dL (0.70-1.30); EST Glomerular Filtration Rate 74 mL/min (>60); Est Glom Filt Rate - Afr Amer 89 mL/min (>60); Estimated Creatinine Clearance 70.84 ml/min; Glucose 164 mg/dL (74-106); Potassium 4.1 mmol/L (3.5-5.1); Sodium Level 139 mmol/L (136-145)
[2024-07-17 14:01] VITALS: BP 129/71
[2024-07-17] MEDS: cloNIDine HCl 0.2 MG Tablet PO (14:02)
[2024-07-17 14:40] LABS: Troponin-I HS 34 pg/mL (3.0-78.0)
== END 2024-07-17 16:11 | disposition home or self-care (01) ==
PROVIDERS: Emergency Provider Emergency Medicine; PCP Family Medicine; Visit Provider Emergency Medicine
DX: R07.89 Other chest pain (principal); I48.91 Unspecified atrial fibrillation; E11.9 Type 2 diabetes mellitus without complications; I10 Essential (primary) hypertension; I45.10 Unspecified right bundle-branch block; E78.00 Pure hypercholesterolemia, unspecified; Z86.73 Personal history of transient ischemic attack (TIA), and cerebral infarction without residual deficits; Z95.2 Presence of prosthetic heart valve; Z79.84 Long term (current) use of oral hypoglycemic drugs; Z79.82 Long term (current) use of aspirin; Z79.01 Long term (current) use of anticoagulants; Z79.02 Long term (current) use of antithrombotics/antiplatelets; Z79.899 Other long term (current) drug therapy; Z87.891 Personal history of nicotine dependence
CPT/HCPCS: 71045; 80048; 84484; 85025; 93005; 99283; A4216

== ENCOUNTER 2024-08-01 16:13 | Emergency (ER) | payer OTHER, SELFPAY ==
[2024-08-01 16:14] VITALS: BP 123/75; PULSE 117; RESP 16; TEMP 36.3; O2SAT 96; BMI 30.4
[2024-08-01 16:28] VITALS: O2SAT 98
--- NOTE | 2024-08-01 16:28 | EKG12_ITS ---
Test Reason : Blood Pressure : */* mmHG Vent. Rate : 86 BPM Atrial Rate : * BPM P-R Int : * ms QRS Dur : 138 ms QT Int : 386 ms P-R-T Axes : * 208 21 degrees QTcB Int : 461 ms Atrial fibrillation Right bundle branch block Abnormal ECG Confirmed by CASANDRA HASTINGS, ONDINA ([id number]), manager editorial [place] ([id number]) on 08/04/2024 8:15:35 AM Referred By: Confirmed By: ONDINA GUAJARDO MD
--- NOTE | 2024-08-01 16:40 | RAD_ITS ---
PROCEDURE: CHEST 1 VIEW (PORTABLE) REASON FOR EXAM: Chest pain TECHNIQUE: Frontal view of the chest. COMPARISON: 07/17/2024 FINDINGS: The lungs are clear. No pleural effusion or pneumothorax. The cardiomediastinal silhouette is unremarkable. No acute osseous or soft tissue abnormality. Median sternotomy wires are present. RAD/Chest 1 View (Portable) IMPRESSION: 1. No acute cardiopulmonary process. Reading Location: [facility]
[2024-08-01 16:51] LABS: Absolute Lymphocyte Count 0.97 X10^3/uL (0.83-4.51); Absolute Neutrophil Count 4.2 X10^3/uL (2.0-7.7); Basophil# 0.03 X10^3/uL; Basophil% 0.5 % (0-1); Eosinophil# 0.06 X10^3/uL; Hematocrit 42.8 % (40-54); Hemoglobin 14.3 g/dL (13.0-16.5); Lymphocyte # 0.97 X10^3/ul (0.83-4.51); Mean Corp Hgb Conc 33.4 g/dL (32-36); Mean Corpuscular Volume 89.7 fL (80-94); Mean Platelet Vol. 9.9 fl (6.2-12.0); Monocyte# 0.78 X10^3/uL; Monocyte% 12.8 % (0-10); NRBC Flagged by Analyzer 0 % (0-5); Platelet Count 166 K/mm3 (150-450); RBC Distribution Width CV 13.3 % (11.6-14.6); RBC Distribution Width SD 43.9 fl (35.1-43.9); Red Blood Count 4.77 M/mm3 (4.6-6.2); White Blood Count 6.1 K/mm3 (4.4-11.0)
[2024-08-01 17:09] LABS: Anion Gap 5 (5-15); BUN 19 mg/dL (7-18); BUN/Creat Ratio 17.6 RATIO (10-20); Calcium,Total 9.5 mg/dL (8.5-10.1); Chloride 105 mmol/L (98-107); Creatinine, Serum 1.08 mg/dL (0.70-1.30); EST Glomerular Filtration Rate 70 mL/min (>60); Est Glom Filt Rate - Afr Amer 84 mL/min (>60); Estimated Creatinine Clearance 67.29 ml/min; Glucose 227 mg/dL (74-106); Potassium 4.2 mmol/L (3.5-5.1); Sodium Level 138 mmol/L (136-145); Troponin-I HS (w/2H Reflex) 14 pg/mL (3.0-78.0)
--- NOTE | 2024-08-01 17:28 | EX.ED.DYSGE1 ---
HPI History of Present Illness Chief Complaint: Hypertension Narrative Narrative: Chief complaint and HPI: Hypertension. 78-year-old male with past medical history of HTN, atrial fibrillation on Eliquis and Plavix, CVA, DM, HLD presents for evaluation of hypertension. Patient states over the past several weeks he has been having issues with his blood pressure. On chart review he was seen in our emergency department on 07/17 for same complaint. He was discharged home on amlodipine 5 mg daily and told to follow-up with cardiology. Patient states that he does have a cardiology appointment. Patient states that he has been checking his blood pressure periodically at home. Again it is remained intermittently labile. He states that his SBP was in the 170s this evening. He called his PCPs office who told him to present to the emergency room. Patient states at that time his blood pressure is high he had some chest heaviness however this has resolved. He denies any fever, chills, shortness of breath, chest pain abdominal pain, nausea, vomiting, bilateral lower extremity swelling. Denies history of travel. Review of systems: See HPI Medications: As listed on the chart Allergies: As listed on the chart PFSH: Per chart Vital signs: As listed on the chart. Reviewed. Physical exam: Gen: A&O x3, NAD Head: Normocephalic, atraumatic Eyes: No sclera icterus, conjunctiva clear ENT: Moist mucous membranes Neck: Trachea midline, No JVD CV: RRR, no murmurs, no peripheral edema Resp: Lungs CTA BL, no w/r/c GI: Abd soft, non-distended, non-tender, no r/r/g Musc: Full ROM, no deformity Skin: Warm, dry Neuro: Alert, oriented, grossly intact, sensation intact Psych: Cooperative, appropriate mood and affect [facility] Medical History (Updated 08/01/24 @ 19:[address] Cr Alonzo, ) History of recent stroke CVA (cerebral vascular accident) Atrial fibrillation Diabetes Hypertension High cholesterol COVID Hyperlipidemia Type 2 diabetes mellitus Benign hypertension Home Medications ?Medication ?Instructions ?Recorded ?Last Taken ?Type atorvastatin 20 mg tablet 20 mg PO DAILY cholesterol 03/21/16 07/31/24 History losartan 100 mg tablet 100 mg PO DAILY BP 05/01/17 08/01/24 History cholecalciferol (vitamin D3) 50 100 mcg PO DAILY supplement 07/23/22 10/19/23 History mcg (2,000 unit) tablet (Vitamin D3) cyanocobalamin (vitamin B-12) 100 100 mcg PO DAILY supplement 07/23/22 08/01/24 History mcg tablet fluticasone propionate 50 1 spray intranasal DAILY sinus 07/23/22 10/16/23 History mcg/actuation nasal spray,suspension glipizide 5 mg tablet 5 mg PO DAILY diabetes 07/23/22 08/01/24 History multivitamin 1 tab PO DAILY health maintenance 07/23/22 10/19/23 History omega-3 fatty acids 1,000 mg PO DAILY health 07/23/22 10/19/23 History maintenance metformin 500 mg tablet 1,000 mg PO BID diabetes 10/19/23 08/01/24 History metoprolol succinate 25 mg 25 mg PO DAILY heart 10/19/23 08/01/24 History tablet,extended release 24 hr montelukast 10 mg tablet 10 mg PO DAILY allergies 02/15/24 08/01/24 History nitroglycerin 0.4 mg sublingual 0.4 mg sublingual Q5M PRN chest 02/15/24 Unknown History tablet pain omeprazole 20 mg capsule,delayed 20 mg PO DAILY acid reflux 02/15/24 Unknown History release clopidogrel 75 mg tablet (Plavix) 75 mg PO DAILY #30 tabs 02/16/24 08/01/24 Rx apixaban 5 mg tablet (Eliquis) 5 mg PO BID #74 tabs 04/16/24 08/01/24 Rx amlodipine 5 mg tablet 5 mg PO DAILY #30 tabs 07/17/24 08/01/24 Rx clonidine HCl 0.1 mg tablet 0.1 mg PO Q8H PRN hypertension 3 08/01/24 Unknown Rx days #9 tabs Allergy/AdvReac Type Severity Reaction Status Date / Time No Known Allergies Allergy Verified 08/01/24 16:39 Surgical History (Updated 08/01/24 @ 16:37 by Kaycee Zuniga) Hx of appendectomy Heart valve replaced Social History housing: house Smoking Status: Former smoker EXAM Physical Exam Const Vital Signs: 08/01/24 16:14 08/01/24 16:28 08/01/24 16:36 Temperature 97.3 F L Temperature Source Temporal Pulse Rate 117 H Respiratory Rate 16 Respiratory Effort Normal Respiratory Pattern Normal Blood Pressure 123/75 H Blood Pressure Mean 91 Pulse Ox 96 98 Oxygen Delivery Method Room Air Room Air 08/01/24 17:32 08/01/24 19:00 08/01/24 20:03 Temperature 97.7 F L Temperature Source Pulse Rate 88 64 60 Respiratory Rate 17 16 16 Respiratory Effort Respiratory Pattern Blood Pressure 135/80 H 131/70 H 135/64 H Blood Pressure Mean 98 90 87 Pulse Ox 97 99 96 Oxygen Delivery Method Room Air Room Air MDM MDM MDM Narrative Medical decision making narrative: 78-year-old male with past medical history of HTN, atrial fibrillation on Eliquis and Plavix, CVA, DM, HLD presents for evaluation of hypertension. On presentation, patient's blood pressure was 123/75. He was tachycardic in the 117s. On my evaluation patient's blood pressure has remained in the 120s. He is not tachycardic. Currently asymptomatic. Differential diagnosis includes but not limited to hypertension urgency, hypertensive emergency, uncontrolled hypertension, electrolyte abnormality, ACS. Given that patient's blood pressure is controlled, no blood pressure medication will be given at this time. Will monitor. Patient had protocol labs performed in triage, I agree with the labs that were performed. CBC without leukocytosis or anemia. BMP relatively unremarkable except for hyperglycemia which patient has a history of DM. Troponin unremarkable x 2. On reevaluation, patient is asymptomatic. His blood pressure has remained in the 120s and 130s. Patient's symptoms are likely secondary to hypertension urgency. His blood pressure improved without any medication. 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 I will not change any of his medications at this time. I did give him clonidine as needed for home for SBP greater than 170s. He confirmed understanding of plan. Patient stable to discharge home. Return precautions explained. EKG: Interpreted by me/EM physician: EKG shows atrial fibrillation with known right bundle branch block. Heart rate 86. No acute ischemic changes Diagnostic: Interpreted by me/EM physician: Chest x-ray without pneumonia, effusion, cardiomegaly, pneumothorax Impression: 1. Hypertension urgency 2. History of hypertension Lab Data Labs: Laboratory Results - last 24 hr 08/01/24 08/01/24 16:24 19:00 WBC 6.1 RBC 4.77 Hgb 14.3 Hct 42.8 MCV 89.7 MCH 30.0 MCHC 33.4 RDW Std Deviation 43.9 RDW Coeff of Tammy 13.3 Plt Count 166 MPV 9.9 Immature Gran % (Auto) 0.700 Neut % (Auto) 69.0 Lymph % (Auto) 16.0 L [place] % (Auto) 12.8 H Eos % (Auto) 1.0 Baso % (Auto) 0.5 Absolute Neuts (auto) 4.2 Absolute Lymphs (auto) 0.97 Nucleated RBC % 0 Sodium 138 Potassium 4.2 Chloride 105 Carbon Dioxide 29.0 Anion Gap 5 BUN 19 H Creatinine 1.08 Estim Creat Clear Calc 67.29 Est GFR (MDRD) Af Amer 84 Est GFR (MDRD) Non-Af 70 BUN/Creatinine Ratio 17.6 Glucose 227 H Calcium 9.5 Troponin I High Sens 14 14 Radiography Diagnostic Testing: Clinical Impression(s) from Imaging Studies Chest X-Ray 08/01/24 16:40 IMPRESSION: 1. No acute cardiopulmonary process. Reading Location: [facility] Discharge Plan Triage Chief Complaint: Hypertension ED Provider: Cr Alonzo Dx/Rx/DC Orders Clinical Impression: Hypertension Instructions: Blood Pressure Check Steps, ED High Blood Pressure Hypertension Prescriptions: New clonidine HCl 0.1 mg tablet 0.1 mg PO Q8H PRN (Reason: hypertension) 3 Days Qty: 9 0RF Rx Instructions: Take for SBP greater than 170 No Action atorvastatin 20 MG tablet 20 mg PO DAILY losartan 100 MG tablet 100 mg PO DAILY multivitamin Tablet 1 tab PO DAILY cyanocobalamin (vitamin B-12) 100 mcg Tablet 100 mcg PO DAILY fluticasone propionate 50 mcg/actuation [place],Suspension 1 spray INTRANASAL DAILY glipizide 5 mg tablet 5 mg PO DAILY omega-3 fatty acids Capsule 1,000 mg PO DAILY cholecalciferol (vitamin D3) [Vitamin D3] 50 mcg (2,000 unit) Tablet 100 mcg PO DAILY metformin 500 mg tablet 1,000 mg PO BID metoprolol succinate 25 mg tablet extended release 24 hr 25 mg PO DAILY nitroglycerin 0.4 mg tablet, sublingual 0.4 mg sublingual Q5M PRN (Reason: chest pain) montelukast 10 mg tablet 10 mg PO DAILY omeprazole 20 mg capsule,delayed release(DR/EC) 20 mg PO DAILY clopidogrel [Plavix] 75 mg tablet 75 mg PO DAILY Qty: 30 1RF Rx Instructions: start 02/16/24 amlodipine 5 mg tablet 5 mg PO DAILY Qty: 30 0RF Eliquis 5 mg tablet 5 mg PO BID Qty: 74 0RF Primary Care Provider: Daljit Cook Referrals: Daljit Cook MD [Primary Care Provider] - 3-5 Days Activity Restrictions/Additional Instructions: Follow-up with your primary care physician as well as your karate instructor. Continue to monitor your blood pressure at home. Clonidine as needed for blood pressure greater than 170. Return back to the ED if symptoms change or worsen. Print Language: Gambian Disposition Disposition: Home, Self Care Discharge Date/Time: 08/01/24 20:10
[2024-08-01 17:32] VITALS: BP 135/80; PULSE 88; RESP 17; O2SAT 97
[2024-08-01 18:35] LABS: Reflex Troponin-HS? (from REC) Y
[2024-08-01 19:00] VITALS: BP 131/70; PULSE 64; RESP 16; O2SAT 99
[2024-08-01 19:29] LABS: Troponin-I HS 14 pg/mL (3.0-78.0)
[2024-08-01 20:03] VITALS: BP 135/64; PULSE 60; RESP 16; TEMP 36.5; O2SAT 96
== END 2024-08-01 20:10 | disposition home or self-care (01) ==
PROVIDERS: Emergency Provider Surgery; PCP Family Medicine; Visit Provider Surgery
DX: I10 Essential (primary) hypertension (principal); I48.91 Unspecified atrial fibrillation; E11.9 Type 2 diabetes mellitus without complications; Z87.891 Personal history of nicotine dependence; E78.00 Pure hypercholesterolemia, unspecified; Z86.73 Personal history of transient ischemic attack (TIA), and cerebral infarction without residual deficits; Z79.01 Long term (current) use of anticoagulants; Z79.02 Long term (current) use of antithrombotics/antiplatelets; Z79.899 Other long term (current) drug therapy; Z79.84 Long term (current) use of oral hypoglycemic drugs; Z90.49 Acquired absence of other specified parts of digestive tract; Z95.2 Presence of prosthetic heart valve; I16.0 Hypertensive urgency
CPT/HCPCS: 71045; 80048; 84484; 85025; 93005; 99284; A4216

== ENCOUNTER 2024-12-08 12:21 | Emergency (ER) | payer OTHER, SELFPAY ==
[2024-12-08 12:22] VITALS: BP 161/97; PULSE 114; RESP 18; TEMP 36.6; O2SAT 98
--- NOTE | 2024-12-08 12:24 | EKG12_ITS ---
Test Reason : vision prob Blood Pressure : */* mmHG Vent. Rate : 79 BPM Atrial Rate : * BPM P-R Int : * ms QRS Dur : 142 ms QT Int : 390 ms P-R-T Axes : * 236 49 degrees QTcB Int : 447 ms Atrial fibrillation Right bundle branch block Abnormal ECG Confirmed by IRVING HASTINGS, YOANA ([id number]), editorial clerk ANDREW LAMA ([id number]) on 12/09/2024 11:12:31 AM Referred By: Chas Cook Confirmed By: YOANA VILLATORO MD
[2024-12-08 12:39] LABS: Absolute Lymphocyte Count 1.33 X10^3/uL (0.83-4.51); Absolute Neutrophil Count 4.7 X10^3/uL (2.0-7.7); Basophil# 0.03 X10^3/uL; Basophil% 0.4 % (0-1); Eosinophil# 0.08 X10^3/uL; Eosinophils% 1.2 % (0-5); Hematocrit 40.7 % (40-54); Hemoglobin 14.1 g/dL (13.0-16.5); Lymphocyte # 1.33 X10^3/ul (0.83-4.51); Lymphocyte % 19.7 % (19-41); Mean Corp Hgb Conc 34.6 g/dL (32-36); Mean Corpuscular Hgb 31.1 pg (27.0-32.0); Mean Corpuscular Volume 89.6 fL (80-94); Mean Platelet Vol. 9.7 fl (6.2-12.0); Monocyte# 0.58 X10^3/uL; Monocyte% 8.6 % (0-10); NRBC Flagged by Analyzer 0 % (0-5); Neutrophil % 69.8 % (47-70); Platelet Count 188 K/mm3 (150-450); RBC Distribution Width CV 12.8 % (11.6-14.6); Red Blood Count 4.54 M/mm3 (4.6-6.2); White Blood Count 6.7 K/mm3 (4.4-11.0)
[2024-12-08 13:05] VITALS: O2SAT 96
--- NOTE | 2024-12-08 13:10 | RAD_ITS ---
PROCEDURE: CHEST 1 VIEW (PORTABLE) 12/08/2024 REASON FOR EXAM: CHEST PAIN TECHNIQUE: Frontal view of the chest. COMPARISON: Prior study dated August 01, 2024. FINDINGS: Hardware: EKG electrodes are seen. Heart: Heart is nonenlarged. Status post CABG. Lungs: Lungs are clear. Bones: Degenerative changes are identified within the thoracic spine. Other: RAD/Chest 1 View (Portable) IMPRESSION: No acute abnormality is seen. Reading Location: [id number]
[2024-12-08 13:11] LABS: Anion Gap 13 (5-15); BUN 16 mg/dL (4-19); BUN/Creat Ratio 16.5 RATIO (10-20); Calcium,Total 9.8 mg/dL (7.6-11.0); Carbon Dioxide 22.2 mmol/L (21.0-32.0); Chloride 102 mmol/L (98-108); Creatinine, Serum 0.97 mg/dL (0.70-1.20); EST Glomerular Filtration Rate 79 (>60); Estimated Creatinine Clearance 73.31 ml/min (50-250); Glucose 145 mg/dL (70-99); Potassium 4.3 mmol/L (3.3-5.1); Sodium Level 137 mmol/L (133-145)
[2024-12-08 13:30] LABS: Troponin T High Sensitivity 23 ng/L (<=22)
[2024-12-08 13:52] VITALS: BP 134/62; PULSE 75; RESP 18; O2SAT 94
--- NOTE | 2024-12-08 14:00 | CT_ITS ---
PROCEDURE: CTA HEAD W/WO CONTRAST 12/08/2024 REASON FOR EXAM: CHANGES IN VISION TECHNIQUE: CTA HEAD W/WO CONTRAST Multiplanar Sagittal and Coronal images were obtained. 3D post processing was performed CONTRAST: Isovue 370 VOLUME: 100 mL One or more dose reduction techniques were used (e.g., Automated exposure control, adjustment of the mA and/or kV according to patient size, use of iterative reconstruction technique). RADIATION DOSE SUMMARY: CTDlvol: 19 mGy DLP: 1205.38. MGycm COMPARISON: None FINDINGS: [place]: [place] anatomy is normal Anuerysm or AVM: None Distal internal carotid arteries: Unremarkable Anterior cerebral arteries: Unremarkable Middle cerebral arteries: Unremarkable Vertebral arteries: Codominant. Basilar artery: Unremarkable Posterior cerebral arteries: Unremarkable Other major branches of the posterior circulation: Unremarkable Major venous structures: Unremarkable Non-vascular findings: Cerebral atrophy. CT/CTA Head W/WO Contrast IMPRESSION: NORMAL CTA OF THE HEAD. Reading Location: [id number]
--- NOTE | 2024-12-08 14:05 | EX.ED.DYSGE1 ---
HPI History of Present Illness Chief Complaint: Chest Pain Narrative Narrative: Patient is a 79-year-old male with past medical history of atrial fibrillation on Eliquis, hypertension, type 2 diabetes, hypercholesterolemia who presented to the emergency department with a chief complaint of chest pain and changes in vision. He states that yesterday when he woke up he noted that when he tried to look at the clock he had a black dot in the center of his vision he could not see the clock fully he states that as a day went on things got better and states that this happened again today. He states that he was at his doctor's appointment following up with his cardiology team when he discussed his chest pain and his symptoms a sent him here to the emergency department for further stroke evaluation given his history of CVA and TIA in the past. Patient states that currently here in the emergency department his vision is better he is able to see. He states that his chest pain has been going on for couple days as well and states that has been constant. [facility] Medical History History of recent stroke CVA (cerebral vascular accident) Atrial fibrillation Diabetes Hypertension High cholesterol COVID Hyperlipidemia Type 2 diabetes mellitus Benign hypertension Home Medications ?Medication ?Instructions ?Recorded ?Last Taken ?Type atorvastatin 20 mg tablet 20 mg PO DAILY cholesterol 03/21/16 12/07/24 History losartan 100 mg tablet 100 mg PO DAILY BP 05/01/17 12/08/24 History cholecalciferol (vitamin D3) 50 100 mcg PO DAILY supplement 07/23/22 12/08/24 History mcg (2,000 unit) tablet (Vitamin D3) cyanocobalamin (vitamin B-12) 100 100 mcg PO DAILY supplement 07/23/22 12/08/24 History mcg tablet fluticasone propionate 50 1 spray intranasal DAILY sinus 07/23/22 12/08/24 History mcg/actuation nasal spray,suspension glipizide 5 mg tablet 5 mg PO DAILY diabetes 07/23/22 12/08/24 History multivitamin 1 tab PO DAILY health maintenance 07/23/22 12/08/24 History omega-3 fatty acids 1,000 mg PO DAILY health 07/23/22 12/08/24 History maintenance metformin 500 mg tablet 1,000 mg PO BID diabetes 10/19/23 12/08/24 History montelukast 10 mg tablet 10 mg PO DAILY allergies 02/15/24 08/01/24 History nitroglycerin 0.4 mg sublingual 0.4 mg sublingual Q5M PRN chest 02/15/24 Unknown History tablet pain clopidogrel 75 mg tablet (Plavix) 75 mg PO DAILY #30 tabs 02/16/24 12/08/24 Rx apixaban 5 mg tablet (Eliquis) 5 mg PO BID #74 tabs 04/16/24 12/08/24 Rx amlodipine 5 mg tablet 5 mg PO DAILY #30 tabs 07/17/24 12/08/24 Rx clonidine HCl 0.1 mg tablet 0.1 mg PO Q8H PRN hypertension 3 08/01/24 12/08/24 Rx days #9 tabs biotin 1 mg capsule 1 mg PO DAILY 12/08/24 12/08/24 History metoprolol succinate 50 mg 50 mg PO DAILY 12/08/24 12/08/24 History tablet,extended release 24 hr pantoprazole 40 mg tablet,delayed 40 mg PO DAILY 12/08/24 12/08/24 History release Allergy/AdvReac Type Severity Reaction Status Date / Time No Known Allergies Allergy Verified 12/08/24 12:24 Surgical History Hx of appendectomy Heart valve replaced Social History housing: house Smoking Status: Former smoker ROS ROS ED ROS Narrative Constitutional: Denies fevers, chills, headaches, lightness, dizziness Eyes: Complains of black spot in his eyes with changes in visions as noted above Cardiovascular: Complains of chest pain as noted above denies palpitations Respiratory: Denies coughing wheezing shortness of breath Abdomen: Denies abdominal pain nausea vomit diarrhea : Denies urinary symptoms Neurological: Denies numbness, weakness, tingling Musculoskeletal: Denies back pain Skin: Denies rashes or lesions EXAM Physical Exam Narrative Exam Narrative: General: Patient lying in bed rest comfortably did not appear to be acute distress Head: Atraumatic, normocephalic Eyes: PERRL bilaterally, EOMI bilateral, no conjunctival injection noted Neck: Soft, supple, trachea midline Cardiovascular: Patient tachycardic with a regular rhythm no murmurs gallops rubs noted Respiratory: Clear to auscultation bilaterally no rales rhonchi or wheezes noted Abdomen: Soft, nondistended, nontender to palpation Extremities: +5/5 strength noted in the bilateral upper and lower extremities, radial pulse +2/4 in the lateral extremities, no pedal edema on exam Neurological: Patient follow commands knew that he was at [facility] year is 2024. NIH of 0 GCS 15 Skin: Warm, dry, intact no rashes or lesions noted Const Vital Signs: 12/08/24 12:22 12/08/24 13:05 12/08/24 13:52 Temperature 97.8 F Temperature Source Oral Pulse Rate 114 H 75 Respiratory Rate 18 18 Blood Pressure 161/97 H 134/62 H Blood Pressure Mean 118 86 Pulse Ox 98 96 94 Oxygen Delivery Method Room Air Room Air Room Air 12/08/24 14:57 Temperature 97.8 F Temperature Source Pulse Rate 73 Respiratory Rate 16 Blood Pressure 135/76 H Blood Pressure Mean 95 Pulse Ox 94 Oxygen Delivery Method MDM MDM MDM Narrative Medical decision making narrative: Patient is a 79-year-old male who presents to the emergency department with a chief complaint of changes in his vision and chest pain. On the differential diagnosis includes but limited to TIA, ischemic stroke, hemorrhagic stroke, intracranial mass, electrolyte abnormality, arrhythmia. Once workup is obtained reviewed he will be reevaluated. Patient is not a tenecteplase candidate nor LVO candidate therefore he will not be made a stroke alert as his symptoms started approximately 2 days ago now. Patient's CBC reviewed showed no evidence of leukocytosis white blood count was 6.7, he was 14.1, platelet count 188. Patient sodium was 137, potassium of 4.3, creatinine normal at 0.97. Patient's troponin was 23 with a delta troponin pending. Patient's EKG showed atrial fibrillation with a rate of 79 bpm with evidence of right bundle branch block patient is chronically anticoagulated on Eliquis. Patient's CTA head and brain with and without contrast was reviewed which showed normal CTA of the head. At this point in time given the patient's waxing and waning of changes in vision with intermittent blind spots and his history of previous CVA and TIA will discuss case with hospitalist for admission for further stroke workup. Discussed case with hospitalist Dr. Cadet who will accept the patient for admission. Patient was notified is agreeable to plan all questions answered at bedside. Lab Data Labs: Laboratory Results - last 24 hr 12/08/24 12/08/24 12:30 14:22 WBC 6.7 RBC 4.54 L Hgb 14.1 Hct 40.7 MCV 89.6 MCH 31.1 MCHC 34.6 RDW Std Deviation 42.0 RDW Coeff of Tammy 12.8 Plt Count 188 MPV 9.7 Immature Gran % (Auto) 0.300 Neut % (Auto) 69.8 Lymph % (Auto) 19.7 [place] % (Auto) 8.6 Eos % (Auto) 1.2 Baso % (Auto) 0.4 Absolute Neuts (auto) 4.7 Absolute Lymphs (auto) 1.33 Nucleated RBC % 0 Sodium 137 Potassium 4.3 Chloride 102 Carbon Dioxide 22.2 Anion Gap 13 BUN 16 Creatinine 0.97 Estim Creat Clear Calc 73.31 Est GFR (MDRD) Non-Af 79 BUN/Creatinine Ratio 16.5 Glucose 145 H Calcium 9.8 Troponin T High Sens 23 H Troponin T Hi Sens 2 Hr 20 Radiography Diagnostic Testing: Clinical Impression(s) from Imaging Studies Chest X-Ray 12/08/24 13:10 IMPRESSION: No acute abnormality is seen. Reading Location: [id number] Head CTA 12/08/24 14:00 IMPRESSION: NORMAL CTA OF THE HEAD. Reading Location: [id number] Discharge Plan Triage Chief Complaint: Chest Pain ED Provider: Chas Cook Dx/Rx/DC Orders Clinical Impression: Alteration in vision, Chest pain, Atrial fibrillation, History of stroke Prescriptions: No Action atorvastatin 20 MG tablet 20 mg PO DAILY losartan 100 MG tablet 100 mg PO DAILY multivitamin Tablet 1 tab PO DAILY cyanocobalamin (vitamin B-12) 100 mcg Tablet 100 mcg PO DAILY fluticasone propionate 50 mcg/actuation [place],Suspension 1 spray INTRANASAL DAILY glipizide 5 mg tablet 5 mg PO DAILY omega-3 fatty acids Capsule 1,000 mg PO DAILY cholecalciferol (vitamin D3) [Vitamin D3] 50 mcg (2,000 unit) Tablet 100 mcg PO DAILY metformin 500 mg tablet 1,000 mg PO BID nitroglycerin 0.4 mg tablet, sublingual 0.4 mg sublingual Q5M PRN (Reason: chest pain) montelukast 10 mg tablet 10 mg PO DAILY clopidogrel [Plavix] 75 mg tablet 75 mg PO DAILY Qty: 30 1RF Rx Instructions: start 02/16/24 amlodipine 5 mg tablet 5 mg PO DAILY Qty: 30 0RF Eliquis 5 mg tablet 5 mg PO BID Qty: 74 0RF clonidine HCl 0.1 mg tablet 0.1 mg PO Q8H PRN (Reason: hypertension) 3 Days Qty: 9 0RF Rx Instructions: Take for SBP greater than 170 metoprolol succinate 50 mg tablet extended release 24 hr 50 mg PO DAILY pantoprazole 40 mg tablet,delayed release (DR/EC) 40 mg PO DAILY biotin 1 mg capsule 1 mg PO DAILY Primary Care Provider: Daljit Cook Referrals: Daljit Cook MD [Primary Care Provider] - Print Language: Latvian Disposition Disposition: Acute Care Hospital [facility]
--- NOTE | 2024-12-08 14:56 | PCM.HP.STD ---
HPI - General General Date of Admission: 12/08/24 Date of Service: 12/08/24 HPI Narrative ARAVIND GRIER, is a 79 M who presents [facility]- interventional cardiology He notes that similar visual symptoms occurred approximately a year ago, lasting for one day, for which he consulted an donation specialist who could not determine the cause. His mechanical valve replacement was performed in 2010. CONCLUSIONS: - Technically difficult exam due to body habitus. - Exam indication: Routine surveillance of prosthetic valve (>3yrs) - The left ventricle is normal in size. There is mild concentric left ventricular hypertrophy. Left ventricular systolic function is normal. EF = 60 ??? 5% (2D biplane) Indeterminate left ventricular diastolic function. - The right ventricle is normal in size. Right ventricular systolic function is low normal. 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 There is no aortic valve regurgitation. The peak gradient is 25 mmHg, the mean gradient is 14 mmHg and the dimensionless valve index is 0.34. Prior pk/mn gradients were 24/11 mmHg. - Exam was compared with the prior echocardiographic exam performed on 07/14/2021, no significant change. Presence of prosthetic heart valve - ICD9: V43.3, ICD10: Z95.2 Echocardiography performed joints 2024 shows Cameron-Farrell prosthetic valve #25 with no AI peak gradient of 25 mg 3 times daily 1. Typical atrial flutter (HCC) - ICD9: 427.32, ICD10: I48.3 (primary diagnosis) I referred patient to electrophysiology as he rather go to an EP service closer to home here he is scheduled to be seen by EP service December 24 To consider rhythm management - ECG COMPLETE Recent carotid ultrasound- > 50% stenosis bilaterally, unchanged from 2022 [facility] Medical History History of recent stroke CVA (cerebral vascular accident) Atrial fibrillation Diabetes Hypertension High cholesterol COVID Hyperlipidemia Type 2 diabetes mellitus Benign hypertension Home Medications ?Medication ?Instructions ?Recorded ?Last Taken ?Type atorvastatin 20 mg tablet 20 mg PO DAILY cholesterol 03/21/16 12/07/24 History losartan 100 mg tablet 100 mg PO DAILY BP 05/01/17 12/08/24 History cholecalciferol (vitamin D3) 50 100 mcg PO DAILY supplement 07/23/22 12/08/24 History mcg (2,000 unit) tablet (Vitamin D3) cyanocobalamin (vitamin B-12) 100 100 mcg PO DAILY supplement 07/23/22 12/08/24 History mcg tablet fluticasone propionate 50 1 spray intranasal DAILY sinus 07/23/22 12/08/24 History mcg/actuation nasal spray,suspension glipizide 5 mg tablet 5 mg PO DAILY diabetes 07/23/22 12/08/24 History multivitamin 1 tab PO DAILY health maintenance 07/23/22 12/08/24 History omega-3 fatty acids 1,000 mg PO DAILY health 07/23/22 12/08/24 History maintenance metformin 500 mg tablet 1,000 mg PO BID diabetes 10/19/23 12/08/24 History montelukast 10 mg tablet 10 mg PO DAILY allergies 02/15/24 08/01/24 History nitroglycerin 0.4 mg sublingual 0.4 mg sublingual Q5M PRN chest 02/15/24 Unknown History tablet pain clopidogrel 75 mg tablet (Plavix) 75 mg PO DAILY #30 tabs 02/16/24 12/08/24 Rx apixaban 5 mg tablet (Eliquis) 5 mg PO BID #74 tabs 04/16/24 12/08/24 Rx amlodipine 5 mg tablet 5 mg PO DAILY #30 tabs 07/17/24 12/08/24 Rx clonidine HCl 0.1 mg tablet 0.1 mg PO Q8H PRN hypertension 3 08/01/24 12/08/24 Rx days #9 tabs biotin 1 mg capsule 1 mg PO DAILY 12/08/24 12/08/24 History metoprolol succinate 50 mg 50 mg PO DAILY 12/08/24 12/08/24 History tablet,extended release 24 hr pantoprazole 40 mg tablet,delayed 40 mg PO DAILY 12/08/24 12/08/24 History release Allergy/AdvReac Type Severity Reaction Status Date / Time No Known Allergies Allergy Verified 12/08/24 12:24 Surgical History Hx of appendectomy Heart valve replaced Social History housing: house Smoking Status: Former smoker Vital Signs Vital Signs Vital Signs: 12/08/24 12:22 12/08/24 13:05 12/08/24 13:52 Temperature 97.8 F Temperature Source Oral Pulse Rate 114 H 75 Respiratory Rate 18 18 Blood Pressure 161/97 H 134/62 H Blood Pressure Mean 118 86 Pulse Ox 98 96 94 Oxygen Delivery Method Room Air Room Air Room Air Weight Weight: 100.561 kg Body Mass Index (BMI) 30.0 Results Lab / Micro Data 12/08/24 12:30 12/08/24 12:30 Labs: Laboratory Results - last 24 hr 12/08/24 12:30: WBC 6.7, RBC 4.54 L, Hgb 14.1, Hct 40.7, MCV 89.6, MCH 31.1, MCHC 34.6, RDW Std Deviation 42.0, RDW Coeff of Tammy 12.8, Plt Count 188, MPV 9.7, Immature Gran % (Auto) 0.300, Neut % (Auto) 69.8, Lymph % (Auto) 19.7, [place] % (Auto) 8.6, Eos % (Auto) 1.2, Baso % (Auto) 0.4, Absolute Neuts (auto) 4.7, Absolute Lymphs (auto) 1.33, Nucleated RBC % 0, Sodium 137, Potassium 4.3, Chloride 102, Carbon Dioxide 22.2, Anion Gap 13, BUN 16, Creatinine 0.97, Estim Creat Clear Calc 73.31, Est GFR (MDRD) Non-Af 79, BUN/Creatinine Ratio 16.5, Glucose 145 H, Calcium 9.8, Troponin T High Sens 23 H Imaging Radiology Impression Chest X-Ray 12/08/24 13:10 IMPRESSION: No acute abnormality is seen. Reading Location: [id number] Head CTA 12/08/24 14:00 IMPRESSION: NORMAL CTA OF THE HEAD. Reading Location: [id number]
[2024-12-08 14:57] VITALS: BP 135/76; PULSE 73; RESP 16; TEMP 36.6; O2SAT 94
[2024-12-08 14:58] LABS: Troponin T High Sens 2 HR 20 ng/L (<=22)
[2024-12-08 15:00] VITALS: BP 134/76; PULSE 69; RESP 14; O2SAT 99
[2024-12-08 16:20] LABS: Hemoglobin A1c 7.9 % (<=5.6)
== END 2024-12-08 15:32 | disposition home or self-care (01) ==
PROVIDERS: Hospitalist; Emergency Provider Emergency Medicine; PCP Family Medicine; Referring Provider Emergency Medicine; Visit Provider Emergency Medicine
DX: I48.91 Unspecified atrial fibrillation (principal); E11.9 Type 2 diabetes mellitus without complications; R07.9 Chest pain, unspecified; I45.10 Unspecified right bundle-branch block; H53.8 Other visual disturbances; I10 Essential (primary) hypertension; E78.00 Pure hypercholesterolemia, unspecified; Z95.2 Presence of prosthetic heart valve; Z86.73 Personal history of transient ischemic attack (TIA), and cerebral infarction without residual deficits; Z79.84 Long term (current) use of oral hypoglycemic drugs; Z79.02 Long term (current) use of antithrombotics/antiplatelets; Z79.01 Long term (current) use of anticoagulants; Z79.899 Other long term (current) drug therapy; Z87.891 Personal history of nicotine dependence
CPT/HCPCS: 70496; 71045; 80048; 83036; 84443; 84484; 85025; 93005; 99284; Q9967; A4216